=== PATIENT | female | born 1975 | race African-American/Black ===

== ENCOUNTER 2022-01-03 03:20 | Emergency (ER) | payer BC, SELFPAY ==
[2022-01-03 03:23] VITALS: BP 94/62; PULSE 61; RESP 14; TEMP 37.3; O2SAT 96; BMI 27.5
--- NOTE | 2022-01-03 04:15 | ED.GENADULT ---
HPI - General Adult General Time Seen by Provider: 03:45 Date Seen: 01/03/22 Stated complaint: Facial nerve pain Time Seen by Provider: 01/03/22 03:28 Source: patient Mode of arrival: EMS Limitations: no limitations History of Present Illness HPI narrative: Patient is a 46-year-old female who comes in by EMS with complaints of left-sided face pain. She has long history of trigeminal neuralgia and has had chronic narcotics, injections, other medications for this. She says that she has been having a flare-up for the past couple of days. She has not slept because of the pain. She falls asleep frequently as I am questioning her however. In reviewing the [facility] system she has not received any narcotics since July but she tells me that she is taking MS Contin 15 mg b.i.d. and gabapentin 600 mg t.i.d.. When she gets a flare-up she is typically given Percocet. She does not have any of these at home and according to [facility] she has not received any since July. She does not have a local doctor. I did the preop prior to her last injection in July. She says the only thing different about her pain tonight is that it goes into her tongue and neck. Related Data Home Medications Medication Instructions Recorded Confirmed albuterol sulfate 90 mcg/actuation INHALATION 01/03/22 aerosol inhaler buspirone 15 mg tablet mg 01/03/22 cholecalciferol (vitamin D3) 125 01/03/22 mcg (5,000 unit) tablet fluticasone propionate 44 INHALATION 01/03/22 mcg/actuation HFA aerosol inhaler (Flovent HFA) gabapentin 300 mg capsule mg 01/03/22 morphine 15 mg tablet,extended mg PO 01/03/22 release prednisone 20 mg tablet mg 01/03/22 sumatriptan succinate 25 mg tablet mg PO 01/03/22 Allergies Allergy/AdvReac Type Severity Reaction Status Date / Time No Known Drug Allergies Allergy Verified 01/03/22 03:33 Review of Systems Status of ROS: Reports: 10 or more systems reviewed and unremarkable except as noted in History and below PFSH PFSH Social History Smoking Status: Never smoker How often do you have a drink containing alcohol: monthly or less AUDIT-C Alcohol total score: 1 Non-prescribed substance use: denies use service: No Exam Narrative: Exam Narrative: Vitals noted. HEENT: Conjunctiva clear. Tympanic membranes are pearly white bilaterally. Posterior pharynx is clear without erythema or exudate. Neck is supple without adenopathy, thyromegaly, carotid bruit. Lungs: Clear to auscultation in all lezama. No wheezes, rales, rhonchi. Heart: Regular rate and rhythm without murmur. Extremities: No cyanosis or edema. Good distal pulses. Skin: No abnormalities noted of the exposed skin. Neurologic: She is intermittently somnolent. Neurologic exam is nonfocal. She has tenderness to light touch along the left side of her face and ear. There is no motor deficit. Cranial nerves are intact. Const: Vital Signs, click to edit/add: Vital Signs - 24 hr 01/03/22 03:23 Temperature 99.2 F Pulse Rate [Left P ulse Oximeter] 61 Respiratory Rate 14 Blood Pressure [Ri ght Upper Arm] 94/62 Pulse Oximetry 96 Course Course Hospital Course: Patient was seen and examined. She intermittently falls asleep while I am talking to her and examining her. 1A asked her how she was getting home she said she will have to take an Uber. I mentioned that that not be available for at least 4 hours. She has no explanation for why she claims to still be taking morphine but has not gotten a prescription that shows up in the [facility] system since July. She claims that the pain is so severe that she has not slept in days but is intermittently dozing off here. I did give her one Percocet. Reevaluation(s) Reevaluation #1: Patient slept throughout most of her stay here. I did send her home with a few Percocet. Vital Signs Vital signs: Initial Vital Signs Temperature 99.2 F 01/03/22 03:23 Temperature Source Temporal Artery Scan 01/03/22 03:23 Pulse Rate 61 01/03/22 03:23 Respiratory Rate 14 01/03/22 03:23 Blood Pressure 94/62 01/03/22 03:23 Blood Pressure Mean 72 01/03/22 03:23 Pulse Oximetry 96 01/03/22 03:23 Oxygen Delivery Method 01/03/22 03:23 Vital Signs Temperature 99.2 F 01/03/22 03:23 Pulse Rate 61 01/03/22 03:23 Respiratory Rate 14 01/03/22 03:23 Blood Pressure 94/62 01/03/22 03:23 Pulse Oximetry 96 01/03/22 03:23 Temperature 99.2 F 01/03/22 03:23 Pulse Rate 61 01/03/22 03:23 Respiratory Rate 14 01/03/22 03:23 Blood Pressure 94/62 01/03/22 03:23 Pulse Oximetry 96 01/03/22 03:23 Discharge Plan Discharge Clinical Impression: Left-sided trigeminal neuralgia Patient Disposition: Home, Self-Care Condition: Improved Additional Instructions: Establish care with a local doctor. Follow-up at the pain clinic to discuss management of your pain. Continue morphine 15 mg twice a day and gabapentin 600 mg 3 times a day. Percocet one tablet every 4 hours as needed for refractory pain. Refills will need to be managed by your PCP. Prescriptions: No Action sumatriptan succinate 25 mg tablet PO 0RF Label Comments: TAKE 1 TABLET BY MOUTH AFTER ONSET OF MIGRAINE MAY REPEAT AFTER 2 HOURS IF HEADACHE RETURNS NOT TO EXCEED 200 MG IN 24 HOURS prednisone 20 mg tablet 0RF fluticasone propionate [Flovent HFA] 44 mcg/actuation HFA aerosol inhaler INHALATION 0RF Label Comments: INHALE 2 PUFFS BY MOUTH TWICE DAILY gabapentin 300 mg capsule 0RF Label Comments: TAKE 1 CAPSULE BY MOUTH THREE TIMES DAILY MAY INCREASE BY 300 MG (1 CAP) A DAY EVERY 3 DAYS TO MAXIMUM DOSE OF 600 MG (2 CAPS) BY MOUTH THREE TIMES DAILY morphine 15 mg tablet extended release PO 0RF Label Comments: TAKE 1 TABLET BY MOUTH EVERY 12 HOURS FOR CHRONIC PAIN albuterol sulfate 90 mcg/actuation HFA aerosol inhaler INHALATION 0RF Label Comments: INHALE 2 PUFFS BY MOUTH EVERY 4 HOURS NEEDED buspirone 15 mg tablet 0RF Label Comments: TAKE 7.5MG (1 2 TABLET) TWO TIMES A DAY cholecalciferol (vitamin D3) 125 mcg (5,000 unit) tablet 0RF Label Comments: TAKE 1 TABLET BY MOUTH ONCE DAILY Follow Up/Referrals: Denton Wang MD [Primary Care Provider] - Stand Alone Forms: [facility] Info Instructions
[2022-01-03] MEDS: OxyCODONE/APAP 5-325 TABLET 2 TAB PO (04:23)
--- NOTE | 2022-01-03 04:30 | ED.NURSE ---
pt given one tab of oxy, pt was sleeping and appeared in no distress. PT BP 91/64, HR 61, SPO2 of 99%, RR 14, per records this it normal for pt vitals. Discussed with MD to give 1 tab instead of 2.
[2022-01-03 05:20] VITALS: BP 91/50; PULSE 60; RESP 14; TEMP 36.7; O2SAT 99
--- NOTE | 2022-01-03 05:20 | ED.NURSE ---
EMS IV dc'd, cath intact.
== END 2022-01-03 05:23 | disposition home or self-care (01) ==
LOC: ED 04:47
PROVIDERS: Emergency Provider Family Medicine; PCP Family Medicine
DX: G50.0 Trigeminal neuralgia (principal)
CPT/HCPCS: 99283; 99284; A9270

== ENCOUNTER 2022-01-23 17:10 | Emergency (ER) | payer BC, SELFPAY ==
[2022-01-23 18:02] VITALS: BP 126/78; PULSE 71; RESP 16; TEMP 37.3; O2SAT 100; BMI 27.5
[2022-01-23 19:49] LABS: Hematocrit 39.5 % (33.0-51.0); Hemoglobin* 12.6 gm/dL (12.0-16.0); Mean Corpuscular HGB Conc 32 gm/dL (32-36); Mean Corpuscular Hemoglobin 30 pg (26-34); Mean Corpuscular Volume 94 fL (80-100); Neutrophils Percent Auto 58.4 % (42.0-72.0); Platelet Count* 194 K/uL (140-440); RDW Coefficient of Variation % 13.5 % (11.5-15.5); Red Blood Count 4.19 m/uL (4.00-5.20); White Blood Count* 4.73 K/uL (4.50-11.00)
[2022-01-23 19:50] LABS: Basophils Absolute Auto 0.02 K/uL (0.00-0.30); Basophils Percent Auto 0.4 % (0.0-3.0); Eosinophils Absolute Auto 0.02 K/uL (0.00-0.50); Eosinophils Percent Auto 0.4 % (0.0-7.0); Lymphocytes Absolute Auto 1.66 K/uL (0.90-2.90); Lymphocytes Percent Auto 35.1 % (20-44); Monocytes Percent Auto 5.7 % (0.0-11.0); Neutrophils Absolute Auto 2.76 K/uL (1.7-7.0)
[2022-01-23 19:55] LABS: Albumin* 4.8 g/dL (3.3-5.0); Chloride* 105 mmol/L (96-114)
[2022-01-23 19:56] LABS: Potassium* 3.9 mmol/L (3.6-5.1); Sodium* 138 mmol/L (135-149)
[2022-01-23 19:58] LABS: Bilirubin Total* 0.4 mg/dL (0.1-1.5); Carbon Dioxide* 27 mmol/L (20-32); Creatinine* 0.7 mg/dL (0.5-1.5); Est. Creatinine Clearance* 91.32; Estimated Glomerular Filt Rate 109 ml/min
[2022-01-23 19:59] LABS: Alanine Aminotransferase* 13 U/L (4-35); Alkaline Phosphatase* 62 U/L (40-150); Aspartate Amino Transferase* 27 U/L (12-35); Blood Urea Nitrogen* 9 mg/dL (5-24); Calcium* 9.5 mg/dL (8.4-10.6); Glucose* 89 mg/dL (60-115); Total Protein* 8.2 g/dL (6.0-8.3)
[2022-01-23 20:00] LABS: Slide Review Reflex No
--- NOTE | 2022-01-23 20:17 | ED.GENADULT ---
HPI - General Adult General Chief complaint: Unspecified Complaint, Adult Stated complaint: NERVE CONDITION,FLAIR UP-FACE/ARM Time Seen by Provider: 01/23/22 18:51 History of Present Illness HPI narrative: Leilani is a 46-year-old female patient has known history of trigeminal neuralgia who has had recent exacerbation of chronic left facial pain. She reports the pain as severe, burning, and stabbing ache in the left side of her face. 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 Patient reports she is taking her medications without improvement. Patient denies any recent URI symptoms, and she reports no change in character or consistency of pain, which is similar to her previous exacerbations. She was last here approximately 1 month prior for similar concerns and complaints. She has had no injury or trauma. Which was previously evaluated, she reported that she was out of her chronic pain medication (Percocet) and her BMP revealed that she had not had prescribed opioids for approximately 5 months. She denies any vision changes. She denies fever, chills, or sweats. See nursing notes for complete details. Related Data Home Medications Medication Instructions Recorded Confirmed albuterol sulfate 90 mcg/actuation inhalation 01/03/22 aerosol inhaler buspirone 15 mg tablet mg 01/03/22 cholecalciferol (vitamin D3) 125 01/03/22 mcg (5,000 unit) tablet fluticasone propionate 44 inhalation 01/03/22 mcg/actuation HFA aerosol inhaler (Flovent HFA) gabapentin 300 mg capsule mg 01/03/22 morphine 15 mg tablet,extended mg PO 01/03/22 release prednisone 20 mg tablet mg 01/03/22 sumatriptan succinate 25 mg tablet mg PO 01/03/22 Previous Rx's Medication Instructions Recorded carbamazepine 200 mg 200 mg PO BID #30 caps 01/23/22 capsule,extended release [id number] Allergies Allergy/AdvReac Type Severity Reaction Status Date / Time No Known Drug Allergies Allergy Verified 01/03/22 03:33 Review of Systems Const: Reports: fatigue, malaise and change in sleep pattern; Denies: fever or chills Eyes: Denies: change in vision or eye discomfort ENMT: Denies: neck pain, difficulty swallowing or ear pain Cardio: Denies: chest pain or shortness of breath with exertion Resp: Denies: shortness of breath or cough GI: Denies: abdominal pain, nausea, vomiting, diarrhea, constipation or difficulty swallowing Musculo: Denies: neck pain Neuro: Denies: headache, weakness in extremities, lack of coordination, dizziness or difficulty communicating thoughts Endo: Reports: fatigue PFSH PFS Social History Smoking Status: Never smoker How often do you have a drink containing alcohol: monthly or less AUDIT-C Alcohol total score: 1 Non-prescribed substance use: denies use service: No Exam Const: Vital Signs, click to edit/add: Vital Signs - 24 hr 01/23/22 18:02 Temperature 99.1 F Pulse Rate [Pulse Oximeter] 71 Respiratory Rate 16 Blood Pressure [Ri ght Upper Arm] 126/78 Pulse Oximetry 100 Oxygen Delivery Me thod Room Air Documenting provider has reviewed patient's vital signs: yes Common normals: no apparent distress, oriented x3 and no limitations; negative for healthy appearing General appearance: cooperative, comfortable, well developed, in distress and appears older than stated age Nutritional appearance: thin Orientation/consciousness: Yes awake, Yes oriented to person, Yes oriented to place and Yes oriented to time HENMT: Common normals: normocephalic, head/scalp atraumatic, hearing grossly normal bilaterally and external nose normal Head and scalp: normocephalic and atraumatic; no temporal artery tenderness Face and sinus: TMJ findings tender to palpation: left and other: bilateral (no audible/palpable clicking, popping, or swelling) Nose: external nose normal Mouth: TMJ findings TMJ Findings: tender to palpation: left and other: bilateral (no audible/palpable clicking, popping, or swelling) Eye: Common normals: PERRL Pupil: PERRL Neck & C-Spine: Common normals: full ROM, no lymphadenopathy and supple Resp: Common normals: normal respiratory effort, no retractions, no use of accessory muscles and clear to auscultation bilaterally Effort & inspection: able to speak in complete sentences Auscultation: clear to auscultation bilaterally Cardio: Common normals: regular rate, regular rhythm, S1 normal heart sound, S2 normal heart sound, no gallops, no clicks and no murmurs Rate: regular rate Rhythm: regular rhythm Heart sounds: S1 normal and S2 normal GI: Common normals: Normal to inspection, nondistended, normoactive bowel sounds present and soft to palpation Palpation: soft Extremity: Common normals: normal to inspection General: normal exam except as noted Neuro: Common normals: oriented x3 Sensorium/orientation: awake, oriented to person, oriented to place and oriented to time Motor exam: strength 5/5 throughout and no pronator drift Skin: Common normals: no rashes or lesions noted General skin exam: no rashes or lesions noted Course Course Hospital Course: Leilani has known history of trigeminal neuralgia as well as TMJ and a benign sarcoma that causes her significant discomfort and pain of her left face and jaw. She had evaluation as well as recommended treatment started for her chronic discomfort. Her results were discussed with her and treatment offered. She is encouraged to take medication as directed and follow with her primary for management of her chronic pain concerns. Her questions were answered, and she verbalized understanding. Reevaluation(s) Time: 20:26 Vital Signs Vital signs: Initial Vital Signs Temperature 99.1 F 01/23/22 18:02 Temperature Source Temporal Artery Scan 01/23/22 18:02 Pulse Rate 71 01/23/22 18:02 Pulse Rhythm 01/23/22 18:02 Respiratory Rate 16 01/23/22 18:02 Blood Pressure 126/78 01/23/22 18:02 Blood Pressure Mean 94 01/23/22 18:02 Blood Pressure Position Sitting 01/23/22 18:02 Pulse Oximetry 100 01/23/22 18:02 Oxygen Delivery Method 01/23/22 18:02 Vital Signs Temperature 99.1 F 01/23/22 18:02 Pulse Rate 71 01/23/22 18:02 Respiratory Rate 16 01/23/22 18:02 Blood Pressure 126/78 01/23/22 18:02 Pulse Oximetry 100 01/23/22 18:02 Oxygen Delivery Method 01/23/22 18:02 Temperature 99.1 F 01/23/22 18:02 Pulse Rate 71 01/23/22 18:02 Respiratory Rate 16 01/23/22 18:02 Blood Pressure 126/78 01/23/22 18:02 Pulse Oximetry 100 01/23/22 18:02 Oxygen Delivery Method 01/23/22 18:02 Medical Decision Making MDM Narrative Medical decision making narrative: Life-threatening differential diagnoses include mastoiditis and retropharyngeal abscess in addition dental caries, peritonsillar abscess, peritonitis, tooth avulsion, tooth fracture, and gingivitis as well as other etiologies were discussed. Adjustment of treatment plan and need for additional follow-up were discussed with patient. Her questions were answered and she verbalized understanding. Lab Data Lab results reviewed: Yes I reviewed the patient's lab results Labs: Lab Results 01/23/22 01/23/22 01/23/22 Range/Units 19:35 19:35 19:35 WBC 4.73 (4.50-11.00) K/uL RBC 4.19 (4.00-5.20) m/uL Hgb 12.6 (12.0-16.0) gm/dL Hct 39.5 (33.0-51.0) % MCV 94 (80-100) fL MCH 30 (26-34) pg MCHC 32 (32-36) gm/dL RDW Coeff of Tristian 13.5 (11.5-15.5) % Plt Count 194 (140-440) K/uL Neut % (Auto) 58.4 (42.0-72.0) % Lymph % (Auto) 35.1 (20-44) % Chester % (Auto) 5.7 (0.0-11.0) % Eos % (Auto) 0.4 (0.0-7.0) % Baso % (Auto) 0.4 (0.0-3.0) % Neut # (Auto) 2.76 (1.7-7.0) K/uL Lymph # (Auto) 1.66 (0.90-2.90) K/uL Chester # (Auto) 0.30 (0.00-0.90) K/UL Eos # (Auto) 0.02 (0.00-0.50) K/uL Baso # (Auto) 0.02 (0.00-0.30) K/uL Abs Immat Gran (auto) 0.00 (0.00-0.30) K/uL ESR 5 (2-20) mm/hr Sodium 138 (135-149) mmol/L Potassium 3.9 (3.6-5.1) mmol/L Chloride 105 (96-114) mmol/L Carbon Dioxide 27 (20-32) mmol/L BUN 9 (5-24) mg/dL Creatinine 0.7 (0.5-1.5) mg/dL Estimated Creat Clear 91.32 Estimated GFR 109 ml/min Glucose 89 (60-115) mg/dL Calcium 9.5 (8.4-10.6) mg/dL Total Bilirubin 0.4 (0.1-1.5) mg/dL AST 27 (12-35) U/L ALT 13 (4-35) U/L Alkaline Phosphatase 62 (40-150) U/L Total Protein 8.2 (6.0-8.3) g/dL Albumin 4.8 (3.3-5.0) g/dL Discharge Plan Discharge Clinical Impression: Left-sided trigeminal neuralgia Patient Disposition: Home, Self-Care Condition: Stable Instructions: Trigeminal Neuralgia (ED) Activity Level: No Restrictions and Activity as Tolerated Prescriptions: New carbamazepine 200 mg capsule, ER multiphase 12 hr 200 mg PO BID Qty: 30 2RF No Action sumatriptan succinate 25 mg tablet PO Label Comments: TAKE 1 TABLET BY MOUTH AFTER ONSET OF MIGRAINE MAY REPEAT AFTER 2 HOURS IF HEADACHE RETURNS NOT TO EXCEED 200 MG IN 24 HOURS prednisone 20 mg tablet fluticasone propionate [Flovent HFA] 44 mcg/actuation HFA aerosol inhaler INHALATION Label Comments: INHALE 2 PUFFS BY MOUTH TWICE DAILY gabapentin 300 mg capsule Label Comments: TAKE 1 CAPSULE BY MOUTH THREE TIMES DAILY MAY INCREASE BY 300 MG (1 CAP) A DAY EVERY 3 DAYS TO MAXIMUM DOSE OF 600 MG (2 CAPS) BY MOUTH THREE TIMES DAILY morphine 15 mg tablet extended release PO Label Comments: TAKE 1 TABLET BY MOUTH EVERY 12 HOURS FOR CHRONIC PAIN albuterol sulfate 90 mcg/actuation HFA aerosol inhaler INHALATION Label Comments: INHALE 2 PUFFS BY MOUTH EVERY 4 HOURS NEEDED buspirone 15 mg tablet Label Comments: TAKE 7.5MG (1 2 TABLET) TWO TIMES A DAY cholecalciferol (vitamin D3) 125 mcg (5,000 unit) tablet Label Comments: TAKE 1 TABLET BY MOUTH ONCE DAILY Follow Up/Referrals: Denton Wang MD [Primary Care Provider] - Stand Alone Forms: [facility] Info Instructions
[2022-01-23 20:30] LABS: Erythrocyte SedimentationRate* 5 mm/hr (2-20)
[2022-01-23] MEDS: KETOROLAC 30 MG/ML inj IM (20:30)
[2022-01-23 21:26] VITALS: BP 110/80; PULSE 78; O2SAT 96
== END 2022-01-23 21:30 | disposition home or self-care (01) ==
PROVIDERS: Emergency Provider Family Medicine; PCP Family Medicine
DX: G50.0 Trigeminal neuralgia (principal)
CPT/HCPCS: 36415; 80053; 85025; 85651; 96372; 99283; 99284; A9270; J1885

== ENCOUNTER 2022-12-31 09:57 | Outpatient (CLI) | payer BC, SELFPAY | END 2022-12-31 09:58 | disposition home or self-care (01) | PROVIDERS: PCP Family Medicine; Visit Provider Family Medicine | DX: Z00.00 Encounter for general adult medical examination without abnormal findings (principal); R79.89 Other specified abnormal findings of blood chemistry; Z11.59 Encounter for screening for other viral diseases; Z13.6 Encounter for screening for cardiovascular disorders; Z79.899 Other long term (current) drug therapy; Z11.4 Encounter for screening for human immunodeficiency virus [HIV]; Z86.2 Personal history of diseases of the blood and blood-forming organs and certain disorders involving the immune mechanism | CPT/HCPCS: 80053; 80061; 82306; 82607; 86039; 86703; 86803 ==

== ENCOUNTER 2023-06-06 09:37 | Outpatient (CLI) | payer BC, SELFPAY | END 2023-06-06 09:38 | disposition home or self-care (01) | LOC: NFLDREF 06-07 13:39 | PROVIDERS: PCP Family Medicine; Referring Provider Family Medicine; Visit Provider Family Medicine | DX: Z01.818 Encounter for other preprocedural examination (principal); R39.15 Urgency of urination; G50.0 Trigeminal neuralgia; I95.9 Hypotension, unspecified; F43.21 Adjustment disorder with depressed mood | CPT/HCPCS: 87086 ==

== ENCOUNTER 2024-06-09 07:13 | Outpatient (CLI) | payer OTHER, SELFPAY | END 2024-06-09 07:14 | disposition home or self-care (01) | PROVIDERS: PCP Family Medicine; Visit Provider Family Medicine | DX: R79.89 Other specified abnormal findings of blood chemistry (principal); M25.50 Pain in unspecified joint; G50.0 Trigeminal neuralgia; J45.909 Unspecified asthma, uncomplicated; Z13.1 Encounter for screening for diabetes mellitus; Z13.6 Encounter for screening for cardiovascular disorders | CPT/HCPCS: 80053; 80061; 82306; 82607; 86038; 86140 ==

== ENCOUNTER 2024-06-26 06:37 | Emergency (ER) | payer OTHER, SELFPAY ==
--- OUTSIDE RECORDS SUMMARY | 2024-06-26 06:39 | XMS_ITS | Clinical Summary ---
Author Organization [facility] Address [address] [place] [address] Care Team Providers Care Strategic Marketing Associate Name Role Phone No Ref-Primary, Physician Primary Care Provider Meghna Potter MD Unavailable Omar Spicer MD Unavailable [phone] Roger Moseley DDS Unavailable [phone] Allergies Active Allergy Reactions Criticality Noted Date Comments Ibuprofen Other (See Comments),GI Disturbance Low 05/11/2013 Not true allergy - was told to avoid NSAIDs due to gastric bypass Told not to take after gastric bypass Had gastric bypass surgery and cannot take Ibuprofen No Known Drug Allergy 09/02/2009 No Clinical Screening - See Comments Other (See Comments) 10/04/2020 Seasonal allergies Seasonal Allergies High 03/24/2019 Other reaction(s): sneezing, congestion Other reaction(s): sneezing, congestion Medications gabapentin (NEURONTIN) 300 MG capsule Take 1 capsule (300 mg) by mouth 3 times daily 42 capsule 9 Active methylPREDNISol one (MEDROL DOSEPAK) 4 MG tablet therapy pack Follow package instructions 21 tablet 9 Active pregabalin (LYRICA) 50 MG capsule Take 1 capsule (50 mg) by mouth 3 times daily 15 capsule 9 Active carBAMazepine (CARBATROL) 300 MG 12 hr capsule Take 1 capsule by mouth 2 times daily 1 Active cholecalciferol 50 MCG (2000 UT) tablet Take 1 tablet by mouth daily 0 Active cyanocobalamin (VITAMIN B-12) 1000 MCG tablet Take 1,000 mcg by mouth daily 1 Active cyclobenzaprine (FLEXERIL) 5 MG tablet Take 5 mg by mouth 3 times daily 8 Active diclofenac (VOLTAREN) 50 MG EC tablet Take 1 tablet by mouth 2 times daily 1 Active DULoxetine (CYMBALTA) 30 MG capsule Take 1 capsule by mouth daily 1 Active Folic Acid-Cholecalci ferol 1-2500 MG-UNIT TABS Take 1 tablet by mouth daily 1 Active hydrochlorothia zide (MICROZIDE) 12.5 MG capsule Take 12.5 mg by mouth daily 1 Active hydrOXYzine (ATARAX) 25 MG tablet Take 25 mg by mouth 3 times daily 1 Active hydrOXYzine (VISTARIL) 25 MG capsule Take 1-2 capsules by mouth every 6 hours as needed 1 Active oxyCODONE-aceta minophen (PERCOCET) 5-325 MG tablet Take 1 tablet by mouth every 6 hours as needed 1 Active traMADol (ULTRAM-ER) 100 MG 24 hr tablet Take 100 mg by mouth daily 1 Active traMADol (ULTRAM) 50 MG tablet Take 1 tablet by mouth every 6 hours as needed 1 Active traZODone (DESYREL) 50 MG tablet Take 50 mg by mouth daily 1 Active Active Problems Problem Noted Date Diagnosed Date Neuritis 09/02/2018 Anemia 08/27/2018 Seasonal allergic rhinitis 08/27/2018 CARDIOVASCULAR SCREENING; LDL GOAL LESS THAN 160 04/23/2010 Panniculitis 02/16/2010 Overview (03/25/2015): Problem list name updated by automated process. 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 Myofascial muscle pain 05/22/201808/07 Immunizations Name Administration Dates Next Due Influenza (IIV3) PF 03/21/2010 Family History Medical History Relation Comments Cancer Father leukuemia Diabetes Father Hypertension Father Diabetes Maternal Grandfather Hypertension Maternal Grandfather Diabetes Maternal Grandmother Hypertension Maternal Grandmother Relation Status Comments Father Alive Maternal Grandfather Maternal Grandmother Mother Alive Paternal Grandfather Paternal Grandmother Social History Tobacco Use Types Packs/Day Years Used Date Smoking Tobacco: Never Smokeless Tobacco: Never Tobacco Cessation:Counseling Given: No Comments:no second hand smoke Alcohol Use Standard Drinks/Week Comments Yes 0 (1 standard drink = 0.6 oz pur e alcohol) socialy PHQ-2 Answer Date Recorded PHQ-2 Score 0 08/27/2018 Adolescent Education Answer Date Record ed Getting School Help Needed Not on file 04/10 Comments No Sex and Gender Information Value Date Recorded Sex Assigned at Not on file 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 Gender Identity Not on file Sexual Orientation Not on file 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 on file Last Filed Vital Signs Vital Sign Reading Time Taken Comments Blood Pressure 127/85 10/10/2020 2:10 AM CDT Pulse 70 10/10/2020 2:10 AM CDT Temperature 36.9 C (98.4 F) 10/10/2020 2:10 AM CDT Respiratory Rate 20 10/10/2020 2:10 AM CDT Oxygen Saturation 99% 10/10/2020 2:10 AM CDT Inhaled Oxygen Concentration - - Weight 83.9 kg (185 lb) 11/08/2018 10:28 PM CDT Height 165.1 cm (5' 5) 11/08/2018 10:28 PM CDT Body Mass Index 30.79 11/08/2018 10:28 PM CDT Plan of Treatment Not on file [place] * Guarantor: Leilani Lundy Account Type Relation to Patient Date of Phone Billing Address Medication Therapy Self [address] [phone] [place] Care Teams Strategic Marketing Associate Relationship Specialty Start Date End Date No Ref-Primary, Physician PCP - General 05/05/18 [place] [address] [place] [address] Family Practice 05/05/18 Omar Spicer MD [address] [facility] [id number] [place] [address] Neurological Surgery 11/18/20 Roger Moseley DDS [facility] [address] [facility] [address] [place] [address] Referring Physician Dentist 11/18/20
--- OUTSIDE RECORDS SUMMARY | 2024-06-26 06:39 | XMS_ITS | Encounter Summary ---
Author Organization [facility] Address [address] [place] [address] Care Team Providers Care Model Maker Name Role Phone Meghna Potter MD Primary Care P rovider No Ref-Primary, Physician Primary Care Provider Meghna Potter MD Unavailable Omar Spicer MD Unavailable Roger Moseley DDS Unavailable [phone] Omar Spicer MD Unavailable [phone] Reason for Visit * Reason Onset Date Comments Results 04/12/2010 labs Encounter Details Date Type Department Care Team (Late st Contact Info) Description 04/12/2010 Telephone [facility] [address] [address] Julia Arshad MD XXX RESIGNED XXX [address] [place] [address] Results (labs ) Social History Tobacco Use Types Packs/Day Years Used Date Smoking Tobacco: Never Comments:no second hand smok e Alcohol Use Standard Drinks/Week Comments Yes 0 (1 standard drink = 0.6 oz pur e alcohol) socialy Comments No Sex and Gender Information Value Date Recorded Sex Assigned at Not on file Legal Sex 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 Also sent results in mail pe rpt request Flaco Cates RN * Telephone Encounter - Aidan Simon - 04/12/2010 3:18 PM CDT Pt has new ph# as above. Pt wondering about status of her labs done 04/10. Pls call pt. Thank you documented in this encounter Plan of Treatment Not on file documented as of this encounter Visit Diagnoses Not on filedocumented in this encounter Care Teams Model Maker Relationship Specialty [place] [address] [place] [id number] PCP - General Family Practice 08/26/09 05/04/18 No Ref-Primary, Physician PCP - General 05/05/18 [place] [address] [address] [id number] Family Practice 05/05/18 Omar Spicer MD [address] [facility] [id number] [place] [address] Neurological Surgery 11/18/20 Roger Moseley DDS [facility] [address] [facility] [address] [place] [address] Referring Physician Dentist 11/18/20 Omar Spicer MD [address] [facility] [id number] [place] [address] Assigned Neuroscience Provider 12/18/20 11/23/22 documented as of this encounter
--- OUTSIDE RECORDS SUMMARY | 2024-06-26 06:39 | XMS_ITS | Clinical Summary ---
Author Organization [facility] Address [place], [place] [address] Care Team Providers Care Packing And Final Assembly Supervisor Name Role Phone Denton Wang MD Primary Care Provider [phone] Allergies Active Allergy Reactions Criticality Noted Date Comments Ibuprofen GI Upset 06/06/2016 Had gastric bypass surgery and cannot take Ibuprofen Unlisted Allergen (Include Detail In Comments) Runny Nose High 03/24/2019 Seasonal allergies Other reaction(s): sneezing, congestion Other reaction(s): sneezing, congestion Medications cyanocobalamin (VITAMIN B12) 1,000 mcg/mL injection Inject 1,000 mcg intramuscular. 5 Active cholecalciferol, Vitamin D3, 2,000 unit tablet Daily 0 Active triamcinolone (ARISTOCORT; KENALOG) 0.1 % creamIndications:C ontact dermatitis, unspecified contact dermatitis type, unspecified trigger Apply topically to affected area(s) three times daily. 80 g 3 Active carBAMazepine (TEGRETOL) 200 mg tabletIndications: Trigeminal neuralgia Take 1 Tablet (200 mg) by mouth two times daily. 20 Tablet 3 Active nortriptyline (PAMELOR) 10 mg capsule TAKE 1 CAPSULE BY MOUTH EVERY DAY AT BEDTIME 3 Active methylPREDNISolone (Medrol, Jason,) 4 mg tabletIndications: Trigeminal neuralgia pain Take by mouth as instructed per packaging. 21 Tablet 4 Active lidocaine HCL 4 % gelIndications:Tri geminal neuralgia pain Apply topically to affected area(s). 75 mL 4 Active oxyCODONE (ROXICODONE) 5 mg immediate release tabletIndications: Trigeminal neuralgia pain Take 1 Tablet (5 mg) by mouth every 6 hours if needed for Pain. 10 Tablet 4 Active ondansetron (ZOFRAN ODT) 4 mg disintegrating tabletIndications: Trigeminal neuralgia pain Place 1 Tablet (4 mg) on the tongue every 8 hours if needed for Nausea/Vomitin g. 30 Tablet 4 Active Active Problems Problem Noted Date Diagnosed Date Arthralgia of multiple joints 10/10/2022 Back pain 10/10/2022 10/10/2022 Low vitamin D level 10/10/2022 10/10/2022 PTSD (post-traumatic stress disorder) 10/10/2022 10/10/2022 Trigeminal neuritis 10/10/2022 10/10/2022 Neuritis 09/02/2018 10/10/2022 Seasonal allergic rhinitis 08/27/201810/10 Chavo anemia 04/15/2014 10/10/2022 Other specified postprocedural states 04/15/2014 10/10/2022 Fatty tumor 02/23/2014 10/10/2022 Panniculitis 02/16/2010 10/10/2022 Overview (10/10/2022): Problem list name updated by automated process. Provider to review Depressive disorder, not elsewhere classified Anemia, unspecified 06/29/2006 Overview (06/29/2006): Related to DUB Other disorder of menstruati on and other abnormal bleeding from female genital tract 06/29/2006 Overview (06/29/2006): s/p D&C x two. Followed by Dr. Heath. Hypopotassemia 06/29/2006 Morbid obesity 08/02/2005 Overview (06/29/2006): s/p Gastric Bypass 08/27 Immunizations Name Administration Dates Next Due COVID-19 vaccine (Moderna 10 0mcg/0.5mL) PF, MDV 09/13/2020 Hepatitis B, Unspecified 01/06/1998 Influenza Virus, Unspecified 03/21/2010 Influenza, IIV3 (Age 6-35 mos) 03/21/2010 Influenza, IIV3 (Age >=3 years) 05/25/2014 Influenza, IIV4 05/25/2014 Tdap 07/15/2022,02/19/2014,12/27/2012 Family History Medical History Relation Name Comments Good Health Brother Cancer Father living at age 4 7, has Leukemia, in remission Good Health Mother living at age 4 9 Relation Name Status Comments Brother Father Mother Social History Tobacco Use Types Packs/Day Years Used Date Smoking Tobacco: Never Smokeless Tobacco: Never Tobacco Cessation:Counseling Given: Not Answered Alcohol Use Standard Drinks/Week Comments Not Currently 1 (1 standard drink = 0.6 oz pur e alcohol) socially Comments No Sex and Gender Information Value Date Recorded Sex Assigned at Not on file 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 Gender Identity Not on file Sexual Orientation Not on file 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 Not on file Not on file Obstetrics History Last Filed Vital Signs Vital Sign Reading Time Taken Comments Blood Pressure 105/70 09/17/2023 9:14 AM CDT Pulse 67 09/17/2023 9:14 AM CDT Temperature 36.7 C (98.1 F) 09/17/2023 9:14 AM CDT Respiratory Rate 14 09/17/2023 9:14 AM CDT Oxygen Saturation 98% 09/17/2023 9:14 AM CDT Inhaled Oxygen Concentration - - Weight 74.8 kg (165 lb) 09/17/2023 9:14 AM CDT Height 165.1 cm (5' 5) 09/17/2023 9:14 AM CDT Body Mass Index 27.46 09/17/2023 9:14 AM CDT Plan of Treatment Health Maintenance Due Date Last Done Comments Depression screening for age 12+ 1988 HIV for age 15-65 10/09/1991 Hepatitis C screening for age 18-79 1994 Pap test for age 21-65 1997 Colonoscopy through age 75 2021 Lipids for age 45-75 2021 10/26/2005 Mammogram for age 45-75 2021 COVID-19 vaccine series (2023- season) 2024 08/03/2021, 10/11/2020, 09/13/2020 Influenza for age 9-49 02/23/2024 4, 05/25/2014, 03/21/2010 BMI (ht and wt on same day) for age 18+ 09/16/2024 09/17/2023, 07/15/2022, 10/04/2020, Additional history exists Tetanus booster 07/15/2032 07/15/2022, 01/23, 12/27/2012 Tdap Completed 07/15/2022, 01/23, 12/27/2012 Pneumococcal series for age 6-49 Aged Out No longer eligible based on patient's age to complete this topic Procedures Procedure Name Priority Date/Time Associated Diagnosis Comments LIPID PANEL Timed 10/26/2005 11:36 AM CDT from Last 3 Months or Most Recently Relevant to Health Maintenance Results * LIPID PANEL (10/26/2005 11:36 AM CDT) CHOLESTEROL,TOTAL 157 110 - 199 mg/dL [facility] TRIGLYCERIDES 129 40 - 149 mg/dL [facility] HDL CHOLESTEROL 42 >40 mg/dL [facility] CHOL/HDL RATIO 3.74 <4.51 [facility] LDL CHOLESTEROL 89 <131 mg/dL [facility] PATIENT STATUS Non-Fasti ng [facility] 10/26/2005 11:3 6 AM CDT 10/26/2005 11:36 AM CDT us Andrea Alvarenga MD CHEMISTRY Final Res ult [facility] INTERNAL ZIP [id number] [address] [address] from Last 3 Months or Most Recently Relevant to Health Maintenance [place] [address] [place] [address] [facility] [employer] Advance Directives * Full Code (Latest Code Status on File) Date Activated Date Inactivated Comments 07/03/2006 10:54 AM 07/07/2006 5:54 PM * Full Code Date Activated Date Inactivated Comments 07/02/2006 11:24 PM 07/03/2006 10:54 AM * Full Code Date Activated Date Inactivated Comments 06/29/2006 2:38 AM 06/29/2006 9:55 PM Care Teams Packing And Final Assembly Supervisor Relationship Specialty Start Date End Date Denton Wang MD [address] [place] [address] PCP - General Family Practice 09/20/20
--- OUTSIDE RECORDS SUMMARY | 2024-06-26 06:39 | XMS_ITS | Continuity of Care Document ---
Author Name [email or web address] Address Unknown Organization Unknown Address Unknown Procedures FILTER APPLIED:Only known Procedures with Onset Date within the last 5 years Procedure Date Procedure Provider Additional Inform ation Status URINE CULTURE/COLONY COUNT (50317) Completed Encounters FILTER APPLIED:Only known Encounters with Admission Date within the last 5 years Encounter Location Admission Discharge Billing Code Vegetable Thinner Jeff [facility]paul[facility] Out[facility] Gabriela Fagan
--- OUTSIDE RECORDS SUMMARY | 2024-06-26 06:39 | XMS_ITS | Referral Summary ---
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 Gender Identity Not on file Sexual Orientation [...] Treatment Not on file [place] * Guarantor: Leilani Lundy Account Type Relation to Patient Date of Phone Billing Address Medication Therapy Self [address] [address] [place] Care Teams Recruiting Manager Relationship Specialty Start Date End Date No Ref-Primary, Physician PCP - General 05/05/18 [place] [address] [address] [address] Family Practice 05/05/18 Omar Spicer MD [address] [facility] [id number] [place] [address] Neurological Surgery 11/18/20 Roger Moseley DDS [facility] [address] [facility] [address] [place] [address] Referring Physician Dentist 11/18/20
--- OUTSIDE RECORDS SUMMARY | 2024-06-26 06:39 | XMS_ITS | Encounter Summary ---
Author Organization [facility] Address [address] [facility] [place] [address] Care Team Providers Care Packaging Assembler Name Role Phone Meghna Potter MD Primary Care P rovider No Ref-Primary, Physician Primary Care Provider Meghna Potter MD Unavailable Omar Spicer MD Unavailable [phone] Roger Moseley DDS Unavailable [phone] Omar Spicer MD Unavailable [phone] Encounter Details Date Type Department Care Team (Late st Contact Info) Description 08/31/2010 MyC Medical Advice Initial Department [facility] Social History Tobacco Use Types Packs/Day Years Used Date Smoking Tobacco: Never Comments:no second hand smok e Alcohol Use Standard Drinks/Week Comments Yes 0 (1 standard drink = 0.6 oz pur e alcohol) socialy Comments No Sex and Gender Information Value Date Recorded Sex Assigned at Not on file 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 Gender Identity Not on file Sexual Orientation Not on file 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 on file documented as of this encounter Plan of Treatment Not on file documented as of this encounter Visit Diagnoses Not on filedocumented in this encounter Care Teams Packaging Assembler Relationship Specialty [place] [address] [address] [phone] PCP - General Family Practice 08/26/09 05/04/18 No Ref-Primary, Physician PCP - General 05/05/18 [place] [address] [address] [phone] Family Practice 05/05/18 Omar Spicer MD [address] [address] Neurological Surgery 11/18/[address] [facility] [address] [facility] [address] [place] [address] Referring Physician Dentist 11/18/20 Omar Spicer MD [address] [address] Assigned Neuroscience Provider 12/18/20 11/23/22 documented as of this encounter
--- OUTSIDE RECORDS SUMMARY | 2024-06-26 06:39 | XMS_ITS | Encounter Summary ---
Author Organization [facility] Address [address] [place] [address] Care Team Providers Care Road Tester Name Role Phone Meghna Potter MD Primary Care P rovider No Ref-Primary, Physician Primary Care Provider Meghna Potter MD Unavailable Omar Spicer MD Unavailable [phone] Roger Moseley DDS Unavailable [phone] Omar Spicer MD Unavailable Reason for Visit * Reason Onset Date Comments Medication Request 03/19/2011 Encounter Details Date Type Department Care Team (Late st Contact Info) Description 03/19/[address] [address] Aminata Singh PA-C [facility] [address] [address] Medication Request Social History Tobacco Use Types Packs/Day Years Used Date Smoking Tobacco: Never Smokeless Tobacco: Never Comments:no second hand smok e Alcohol Use Standard Drinks/Week Comments Yes 0 (1 standard drink = 0.6 oz pur e alcohol) socialy Comments No Sex and Gender Information Value Date Recorded Sex Assigned at Not on file 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 Aldara was not the medication she was requesting in an oral from, it was flagyl or metronidazole based on the visit on 02/22/11. Rx was ordered and sent while speaking on phone with her. Apologized for the confusion, and will forward this to Angeles Anderson. Aminata Singh PA-C * Telephone Encounter - Estefany Wilkerson - 03/19/2011 1:59 PM CDT Pt very irritated that message sent about Aldara cream. Pt states she was calling about a cream that was given to her when she came in for her physical at the beginning of February. Pt states Caty told me there is a cream or a pill. Pt states she has not been able to insert the vaginal cream because she gets home very late at night from work. Pt requesting Rx for pill version of whatever she gave me at my physical be sent to pharmacy. Pt unable to verify name of medication she is talking about (per EPIC pt give Rx for Metrol on 02/22/11 to treat BV). Pt unwilling to answer questions is she is currently having symptoms of BV and will not confirm if she has used any of the Metrogel. Will forward to provider to advise. Estefany Wilkerson RN * Telephone Encounter - Estefany Wilkerson - 03/19/2011 1:47 PM CDT ----- Message from Aminata Singh sent at 03/19/2011 1:32 PM ----- There is not an oral medication to treat the conditions that Aldara is used for. Thank you Aminata Singh PA-C * Telephone Encounter - Estefany Wilkerson - 03/19/2011 9:36 AM CDT Pt seen in on 03/15/11 for lesion on pubis area. Will forward to provider to advise. Estefany Wilkerson RN * Telephone Encounter - Christin Bunch - 03/19/2011 8:04 AM CDT Please call Leilani at [phone] anytime or leave message re; received an Rx for Aldara 5% cream(02-22 and again 03-16/)and she is requesting a pill form instead due to her work schedule(difficult to apply-pills would be much easier). [facility] - didn' have # Thank you documented in this encounter Plan of Treatment Not on file documented as of this encounter Visit Diagnoses Diagnosis BV (bacterial vaginosis)- Primary Vaginitis and vulvovaginitis, unspecified documented in this encounter Care Teams Road Tester Relationship Specialty [place] [address] [address] [phone] PCP - General Family Practice 08/26/09 05/04/18 No Ref-Primary, Physician PCP - General 05/05/18 [place] [address] [address] [address] Family Practice 05/05/18 Omar Spicer MD [address] [place], [place] [id number] [address] Neurological Surgery 11/18/20 Roger Moseley DDS [facility] [address] [facility] [address] [place] [address] Referring Physician Dentist 11/18/20 Omar Spicer MD [address] [facility] [id number] [place] [address] Assigned Neuroscience Provider 12/18/20 11/23/22 documented as of this encounter
[2024-06-26 06:47] VITALS: BP 117/73; PULSE 100; RESP 20; TEMP 37.7; O2SAT 99; BMI 27.3
--- NOTE | 2024-06-26 07:12 | ED_ITS ---
HPI - General Adult General Date Seen: 06/26/24 <Guanako Bryan - Last Filed: 06/26/24 08:02> Chief complaint: Fever <Guanako Bryan DO - Last Filed: 06/26/24 08:02> Stated complaint: Fever, chest pain, head/body aches <Guanako Bryan - Last Filed: 06/26/24 08:02> Time Seen by Provider: 06/26/24 07:01 <Guanako Bryan DO - Last Filed: 06/26/24 08:02> Source: patient <Guanako Bryan - Last Filed: 06/26/24 08:02> Mode of arrival: ambulatory <Guanako Bryan - Last Filed: 06/26/24 08:02> Limitations: no limitations <Guanako Bryan - Last Filed: 06/26/24 08:02> History of Present Illness HPI narrative: Patient is a 48-year-old female presenting to the emergency department for multiple symptoms. States since yesterday she has been having consistent fevers, chills, cough congestion, body aches, fatigue and a headache. She states she has had headaches like this before. She states it feels like her previous migraines. She is also having leg pain that has flared up. She says it is from a previous nerve disorder but has not taken her nerve pain medications as she was concerned that could have an adverse reaction with whatever is causing her symptoms. States she took a Tylenol last night with minimal improvement. Has had multiple sick coworkers. States she of intermittent chest pressure and left shoulder pain this seems to come and go. States it occurs randomly. Has not had issues like this before. When it does occur she will have some mild shortness of breath. Denies constipation, diarrhea, abdominal pain, nausea/vomiting. No other concerns noted. <Guanako Bryan DO - Last Filed: 06/26/24 08:02> Related Data Home medications: Home Medications ?Medication ?Instructions ?Recorded ?Confirmed acetaminophen 300 mg-codeine 30 mg 1 tab PO Q6H PRN 06/06/23 06/09/24 tablet Previous Rx's ?Medication ?Instructions ?Recorded duloxetine 30 mg capsule,delayed 30 mg PO BID #180 caps 06/09/24 release nortriptyline 50 mg capsule 50 mg PO QHS #90 caps 06/09/24 topiramate 25 mg tablet (Topamax) 25 mg PO QHS #30 tabs 06/09/24 cholecalciferol (vitamin D3) 1,250 1,250 mcg PO QWEEK #12 caps 06/10/24 mcg (50,000 unit) capsule nirmatrelvir 300 mg (150 mg See Rx Instructions PO .COMPLEX 06/26/24 x2)-ritonavir 100 mg tablet,dose #30 ea pack (Paxlovid) <Guanako Bryan DO - Last Filed: 06/26/24 08:02> Allergies/adverse reactions: Allergies Allergy/AdvReac Type Severity Reaction Status Date / Time ibuprofen Allergy Mild unable to Verified 06/09/24 07:23 tolerate due to gastric bypass hx seasonal Allergy Mild sneezing, Uncoded 06/09/24 07:23 congestion <Guanako Bryan DO - Last Filed: 06/26/24 08:02> Review of Systems Status of ROS: Reports: 10 or more systems reviewed and unremarkable except as noted in History and below <Guanako Bryan DO - Last Filed: 06/26/24 08:02> [facility] Medical History: Medical History Grief ?F43.21 - Adjustment disorder with depressed mood (ICD-10) History of temporomandibular joint disorder ?Z87.39 - Personal history of other diseases of the musculoskeletal system and connective tissue (ICD-10) History of anemia ?Z86.2 - Personal history of diseases of the blood and blood-forming organs and certain disorders involving the immune mechanism (ICD-10) <Guanako Bryan DO - Last Filed: 06/26/24 08:02> Surgical History: Surgical History History of hysterectomy ?Z90.710 - Acquired absence of both cervix and uterus (ICD-10) History of gastric bypass ?Z98.84 - Bariatric surgery status (ICD-10) History of section ?Z98.891 - History of uterine scar from previous surgery (ICD-10) <Guanako Bryan DO - Last Filed: 06/26/24 08:02> Family History: Family History Father Diabetes Leukemia Family/Other Heart disease Other Kidney disease Stroke <Guanako Bryan DO - Last Filed: 06/26/24 08:02> Social History: Social History Narrative: nonsmoker What is your current living situation?: I presently have a place to live Problems where you live: no known problems In the past 12 months, utilities in danger of being shut off: no In past 12 months, lack of transportation kept you from medical appts, meetings, work, or getting things needed for daily living: no In the past 12 mos, have been you worried that your food would run out before you had money to buy more?: never true In the past 12 mos, the food you bought just didn't last and you didn't have money to buy more?: never true Smoking Status: Never smoker Do you use any of these nicotine containing products: None Second hand tobacco smoke exposure: No How often do you have a drink containing alcohol: monthly or less AUDIT-C Alcohol total score: 1 Non-prescribed substance use: denies use How often does anyone, including family, friends and others, physically hurt you : never How often does anyone, including family, friends and others, insult or talk down to you: never How often does anyone, including family, friends and others, threaten you with harm: never How often does anyone, including family, friends and others, scream or curse at you: never service: No <Guanako Bryan DO - Last Filed: 06/26/24 08:02> Exam Narrative: Exam Narrative: Const: Well-nourished, Well-developed, in mild distress Eyes: PERRL, no conjunctival injection, and symmetrical lids HENT: Atraumatic external nose and ears. Moist mucous membranes. Neck: Symmetric, trachea midline, No thyromegaly. CVS: RRR, No murmurs or gallops. Peripheral pulses 2+ and equal in all ex tremities RESP: Unlabored respiratory effort. Clear to auscultation bilaterally. GI: Nontender/Nondistended, No rebound or guarding. MSK:Extremities w/o deformity, Normal Active ROM Skin: Warm, Dry. No rashes or lesions. Neuro: Normal Muscle tone, No focal neurological deficits. Psych: Awake, Alert, & Oriented x3. Appropriate mood and affect. <Guanako Bryan DO - Last Filed: 06/26/24 08:02> Const: Vital Signs, click to edit/add: Vital Signs - 24 hr 06/26/24 06:37 06/26/24 06:47 Temperature 99.9 F H Pulse Rate [Left P ulse Oximeter] 100 Respiratory Rate 20 Blood Pressure [Ri ght Upper Arm] 117/73 Pulse Oximetry 99 Oxygen Delivery Me thod Room Air Room Air <Guanako Bryan DO - Last Filed: 06/26/24 08:02> Vital Signs, click to edit/add: Vital Signs - 24 hr 06/26/24 06:37 06/26/24 06:47 Temperature 99.9 F H Pulse Rate [Left P ulse Oximeter] 100 Respiratory Rate 20 Blood Pressure [Ri ght Upper Arm] 117/73 Pulse Oximetry 99 Oxygen Delivery Me thod Room Air Room Air <Leonila Maldonado MD - Last Filed: 06/26/24 09:08> Course Vital Signs Vital signs: Initial Vital Signs Temperature Source Temporal Artery Scan 06/26/24 06:37 Respiratory Effort Normal, Spontaneous, Non-Labored 06/26/24 06:37 Respiratory Depth Normal 06/26/24 06:37 Respiratory Pattern Normal 06/26/24 06:37 Oxygen Delivery Method Room Air 06/26/24 06:37 Sepsis Recent Fever Within 48 Hours Yes 06/26/24 06:37 Sepsis New/Unexplained Change in Mental Status No 06/26/24 06:37 Sepsis Action Taken by Nursing No Action Required 06/26/24 06:37 Vital Signs Oxygen Delivery Method Room Air 06/26/24 06:37 Temperature 99.9 F H 06/26/24 06:47 Pulse Rate 100 06/26/24 06:47 Respiratory Rate 20 06/26/24 06:47 Blood Pressure 117/73 06/26/24 06:47 Pulse Oximetry 99 06/26/24 06:47 Oxygen Delivery Method Room Air 06/26/24 06:47 <Guanako Bryan DO - Last Filed: 06/26/24 08:02> Initial Vital Signs Temperature Source Temporal Artery Scan 06/26/24 06:37 Respiratory Effort Normal, Spontaneous, Non-Labored 06/26/24 06:37 Respiratory Depth Normal 06/26/24 06:37 Respiratory Pattern Normal 06/26/24 06:37 Oxygen Delivery Method Room Air 06/26/24 06:37 Sepsis Recent Fever Within 48 Hours Yes 06/26/24 06:37 Sepsis New/Unexplained Change in Mental Status No 06/26/24 06:37 Sepsis Action Taken by Nursing No Action Required 06/26/24 06:37 Vital Signs Oxygen Delivery Method Room Air 06/26/24 06:37 Temperature 99.9 F H 06/26/24 06:47 Pulse Rate 100 06/26/24 06:47 Respiratory Rate 20 06/26/24 06:47 Blood Pressure 117/73 06/26/24 06:47 Pulse Oximetry 99 06/26/24 06:47 Oxygen Delivery Method Room Air 06/26/24 06:47 <Leonila Maldonado MD - Last Filed: 06/26/24 09:08> Medications Administered Medications: Discontinued Medications Generic Name Dose Route Start Last Admin Trade Name Freq PRN Reason Stop Dose Admin Diphenhydramine HCl 25 mg 06/26/24 07:10 06/26/24 08:01 Diphenhydramine 50 Mg/Ml Inj IVP 06/26/24 07:11 25 mg ONCE ONE Administration Lactated Ringer's 1,000 mls @ 1,000 mls/hr 06/26/24 07:10 06/26/24 07:58 Lactated Ringers 1000 Ml IV 06/26/24 08:09 1,000 mls/hr .Q1H ONE Administration Ketorolac Tromethamine 15 mg 06/26/24 07:10 06/26/24 07:59 Ketorolac 15 Mg/Ml Inj IVP 06/26/24 07:11 15 mg ONCE ONE Administration Metoclopramide HCl 10 mg 06/26/24 07:10 06/26/24 08:03 Metoclopramide Hcl 5 Mg/Ml Inj IVP 06/26/24 07:11 10 mg ONCE ONE Administration Potassium Chloride 40 meq 06/26/24 07:57 06/26/24 08:48 Potassium Chloride 10 Meq Capsule Er PO 06/26/24 07:58 40 meq ONCE ONE Administration <Guanako Bryan DO - Last Filed: 06/26/24 08:02> Discontinued Medications Generic Name Dose Route Start Last Admin Trade Name Zakia PRN Reason Stop Dose Admin Diphenhydramine HCl 25 mg 06/26/24 07:10 06/26/24 08:01 Diphenhydramine 50 Mg/Ml Inj IVP 06/26/24 07:11 25 mg ONCE ONE Administration Lactated Ringer's 1,000 mls @ 1,000 mls/hr 06/26/24 07:10 06/26/24 07:58 Lactated Ringers 1000 Ml IV 06/26/24 08:09 1,000 mls/hr .Q1H ONE Administration Ketorolac Tromethamine 15 mg 06/26/24 07:10 06/26/24 07:59 Ketorolac 15 Mg/Ml Inj IVP 06/26/24 07:11 15 mg ONCE ONE Administration Metoclopramide HCl 10 mg 06/26/24 07:10 06/26/24 08:03 Metoclopramide Hcl 5 Mg/Ml Inj IVP 06/26/24 07:11 10 mg ONCE ONE Administration Potassium Chloride 40 meq 06/26/24 07:57 06/26/24 08:48 Potassium Chloride 10 Meq Capsule Er PO 06/26/24 07:58 40 meq ONCE ONE Administration <Leonila Maldonado MD - Last Filed: 06/26/24 09:08> Medical Decision Making MDM Narrative Medical decision making narrative: Patient is a 48-year-old female presenting for flu-like symptoms. For her headache she states she has had headaches like this before and cannot do not believe imaging is necessary. Will give her a migraine cocktail. She is also having intermittent chest pain. The differential diagnosis of chest pain is broad and includes common etiologies such as musculoskeletal strain, GERD, pneumonia, etc. More serious etiologies considered include PE, coronary artery disease, pneumothorax, aortic dissection, aortic aneurysm. Considering his is intermittent and seems more likely to related to the likely viral infection. Do not believe it is from an aortic dissection, aortic aneurysm, or PE. Will blow do an EKG and troponin to look for signs of ACS or other heart conditions. Ches t x-ray ordered to look for signs of pneumonia. Will order CBC, BMP, COVID/flu/RSV swab also. Patient is COVID positive. EKG, troponin, CBC shows no concerning abnormalities. BMP shows hypokalemia at 3.0. This is unlikely to be causing any symptoms but was replenished. Do not believe repeat troponin is necessary as symptoms started yesterday. Patient was signed out to my colleague pending c ompletion of migraine cocktail and chest x-ray. <Guanako Bryan, DO - Last Filed: 06/26/24 08:02> Lab Data Labs: Lab Results 06/26/24 06/26/24 06/26/24 Range/Units 06:37 07:10 07:25 WBC 3.13 L (4.50-11.00) K/uL RBC 3.82 L (4.00-5.20) m/uL Hgb 11.5 L (12.0-16.0) gm/dL Hct 35.4 (33.0-51.0) % MCV 93 (80-100) fL MCH 30 (26-34) pg MCHC 33 (32-36) gm/dL RDW Coeff of [place]ist[place] 13.1 (11.5-15.5) % Plt Count 123 L (140-440) K/uL Neut % (Auto) 84.4 H (42.0-72.0) % Lymph % (Auto) 7.3 L (20-44) % [place] % (Auto) 7.7 (0.0-11.0) % Eos % (Auto) 0.3 (0.0-7.0) % Baso % (Auto) 0.3 (0.0-3.0) % Neut # (Auto) 2.60 (1.7-7.0) K/uL Lymph # (Auto) 0.20 L (0.90-2.90) K/uL [place] # (Auto) 0.20 (0.00-0.90) K/UL Eos # (Auto) 0.00 (0.00-0.50) K/uL Baso # (Auto) 0.00 (0.00-0.30) K/uL Abs Immat Gran (auto) 0.00 (0.00-0.30) K/uL Imm/Tot Granulo (auto) 0.0 % Sodium 135 (135-149) mmol/L Potassium 3.0 L (3.6-5.1) mmol/L Chloride 103 (96-114) mmol/L Carbon Dioxide 27 (20-32) mmol/L Anion Gap 5 L (7-15) mEq/L BUN 7 (5-24) mg/dL Creatinine 0.6 (0.5-1.5) mg/dL Estimated Creat Clear 104.30 Estimated GFR 111 ml/min Glucose 100 (60-115) mg/dL Calcium 8.9 (8.4-10.6) mg/dL SARS-CoV-2 (PCR) POSITIVE SARS-CoV-2 A (Negative) Influenza Type A (PCR) Negative PCR FLU A (Negative) Influenza Type B (PCR) Negative PCR FLU B (Negative) RSV (PCR) Negative PCR RSV (Negative) POC Troponin I 0.00 L (0.01-0.04) ng/ml <Guanako Bryan, DO - Last Filed: 06/26/24 08:02> Lab Results 06/26/24 06/26/24 06/26/24 Range/Units 06:37 07:10 07:25 WBC 3.13 L (4.50-11.00) K/uL RBC 3.82 L (4.00-5.20) m/uL Hgb 11.5 L (12.0-16.0) gm/dL Hct 35.4 (33.0-51.0) % MCV 93 (80-100) fL MCH 30 (26-34) pg MCHC 33 (32-36) gm/dL RDW Coeff of [place] 13.1 (11.5-15.5) % Plt Count 123 L (140-440) K/uL Neut % (Auto) 84.4 H (42.0-72.0) % Lymph % (Auto) 7.3 L (20-44) % [place] % (Auto) 7.7 (0.0-11.0) % Eos % (Auto) 0.3 (0.0-7.0) % Baso % (Auto) 0.3 (0.0-3.0) % Neut # (Auto) 2.60 (1.7-7.0) K/uL Lymph # (Auto) 0.20 L (0.90-2.90) K/uL [place] # (Auto) 0.20 (0.00-0.90) K/UL Eos # (Auto) 0.00 (0.00-0.50) K/uL Baso # (Auto) 0.00 (0.00-0.30) K/uL Abs Immat Gran (auto) 0.00 (0.00-0.30) K/uL Imm/Tot Granulo (auto) 0.0 % Sodium 135 (135-149) mmol/L Potassium 3.0 L (3.6-5.1) mmol/L Chloride 103 (96-114) mmol/L Carbon Dioxide 27 (20-32) mmol/L Anion Gap 5 L (7-15) mEq/L BUN 7 (5-24) mg/dL Creatinine 0.6 (0.5-1.5) mg/dL Estimated Creat Clear 104.30 Estimated GFR 111 ml/min Glucose 100 (60-115) mg/dL Calcium 8.9 (8.4-10.6) mg/dL SARS-CoV-2 (PCR) POSITIVE SARS-CoV-2 A (Negative) Influenza Type A (PCR) Negative PCR FLU A (Negative) Influenza Type B (PCR) Negative PCR FLU B (Negative) RSV (PCR) Negative PCR RSV (Negative) POC Troponin I 0.00 L (0.01-0.04) ng/ml <Leonila Maldonado MD - Last Filed: 06/26/24 09:08> Imaging Data Chest x-ray: Attestation: I have reviewed the pertinent imaging results. <Leonila Tavarez MD - Last Filed: 06/26/24 09:08> Radiologist's impression: Patient: ROSSY GUPTA Facility:?[facility] Patient ID:?[id number] Site Patient ID:?[id number]. Site :?[id number] Study:?XRay-Chest 2V-06/26/2024 8:37:58 AM Ordering Physician:Mario Mujica Final Report: Indication: fevers, chest pain, covid +. Technique: View(s) of the chest. Comparison: None available. Findings: Unchanged cardiomediastinal silhouette and pulmonary vasculature. Lungs are well inflated. No focal consolidation, pleural effusion or pneumothorax. No acute osseous abnormality. Chain suture material in the upper abdomen. Impression: No acute cardiopulmonary abnormality identified. Dictated by Vibha Huynh MD @ 06/26/2024 8:44:58 AM (Electronic Signature) <Leonila Maldonado MD - Last Filed: 06/26/24 09:08> ECG Data Attestation: I personally reviewed and interpreted this ECG as follows: <Guanako Bryan DO - Last Filed: 06/26/24 08:02> Prior ECG tracings: not available for review <Guanako Bryan DO - Last Filed: 06/26/24 08:02> Interpretation: Normal sinus rhythm with rate any for beats per minute, normal intervals, normal axis, no ST abnormalities. Difficult to be of the same T-wave abnormalities as they are all very flat. There may be some inversions in V3. <Guanako Bryan DO - Last Filed: 06/26/24 08:02> Discharge Plan Discharge Clinical Impression: COVID <Guanako Bryan DO - Last Filed: 06/26/24 08:02> Patient Disposition: Home, Self-Care <Guanako Bryan DO - Last Filed: 06/26/24 08:02> Condition: Stable <Guanako Bryan DO - Last Filed: 06/26/24 08:02> Instructions: COVID-19 (Coronavirus Disease 2019) (ED) <Guanako Bryan DO - Last Filed: 06/26/24 08:02> Additional Instructions: Quarantine for 5 days and 72 hours without a fever. Return to emergency department for new or worsening symptoms. Take the Paxlovid as directed. Stop taking the Paxlovid if you start having worsening chest pain, shortness of breath, lightheadedness, dizziness or any other concerning symptoms. There is a likely weak reaction with the nortriptyline but current recommendations are to not adjust the dose. <Guanako Bryan DO - Last Filed: 06/26/24 08:02> Prescriptions: New Paxlovid 300 mg (150 mg x 2)-100 mg tablets,dose pack See Rx Instructions .ROUTE .COMPLEX Qty: 30 0RF Rx Instructions: take TWO 150 mg tablets of nirmatrelvir with ONE 100 mg tablet of ritonavir twice daily for 5 days No Action acetaminophen-codeine 300-30 mg tablet 1 tab PO Q6H PRN duloxetine 30 mg capsule,delayed release(DR/EC) 30 mg PO BID Qty: 180 3RF nortriptyline 50 mg capsule 50 mg PO QHS Qty: 90 3RF topiramate [Topamax] 25 mg tablet 25 mg PO QHS Qty: 30 12RF cholecalciferol (vitamin D3) 1,250 mcg (50,000 unit) capsule 1,250 mcg PO QWEEK Qty: 12 0RF <Guanako Bryan DO - Last Filed: 06/26/24 08:02> Follow Up/Referrals: Koki Fagan MD [Primary Care Provider] - <Guanako Bryan DO - Last Filed: 06/26/24 08:02> Stand Al[facility]: [facility] <Guanako Bryan DO - Last Filed: 06/26/24 08:02>
--- NOTE | 2024-06-26 07:17 | CRLHL7_ITS ---
For Patients: As a result of the Cures Act, medical imaging exams and procedure reports are released immediately into your electronic medical record. You may view this report before your referring provider. If you have questions, please contact your health care provider. Indication: fevers, chest pain, covid +. Technique: View(s) of the chest. Comparison: None available. Findings: Unchanged cardiomediastinal silhouette and pulmonary vasculature. Lungs are well inflated. No focal consolidation, pleural effusion or pneumothorax. No acute osseous abnormality. Chain suture material in the upper abdomen. Impression: No acute cardiopulmonary abnormality identified. Dictated by Vibha Huynh MD @ 06/26/2024 8:44:58 AM (Electronically Signed)
[2024-06-26 07:35] LABS: Basophils Percent Auto 0.3 % (0.0-3.0); Eosinophils Percent Auto 0.3 % (0.0-7.0); Hematocrit 35.4 % (33.0-51.0); Hemoglobin* 11.5 gm/dL (12.0-16.0); Lymphocytes Percent Auto 7.3 % (20-44); Mean Corpuscular HGB Conc 33 gm/dL (32-36); Mean Corpuscular Hemoglobin 30 pg (26-34); Mean Corpuscular Volume 93 fL (80-100); Monocytes Percent Auto 7.7 % (0.0-11.0); Neutrophils Percent Auto 84.4 % (42.0-72.0); Platelet Count* 123 K/uL (140-440); RDW Coefficient of Variation % 13.1 % (11.5-15.5); Red Blood Count 3.82 m/uL (4.00-5.20); White Blood Count* 3.13 K/uL (4.50-11.00)
[2024-06-26 07:36] LABS: PCR FLU A Negative PCR FLU A (Negative); PCR FLU B Negative PCR FLU B (Negative); PCR RSV Negative PCR RSV (Negative); SARS PCR* POSITIVE SARS-CoV-2 (Negative)
[2024-06-26 07:41] LABS: Slide Review Reflex No
[2024-06-26 07:48] LABS: Chloride* 103 mmol/L (96-114); Sodium* 135 mmol/L (135-149)
[2024-06-26 07:50] LABS: Creatinine* 0.6 mg/dL (0.5-1.5); Estimated Glomerular Filt Rate 111 ml/min
[2024-06-26 07:51] LABS: Anion Gap 5 mEq/L (7-15); Blood Urea Nitrogen* 7 mg/dL (5-24); Calcium* 8.9 mg/dL (8.4-10.6); Carbon Dioxide* 27 mmol/L (20-32); Glucose* 100 mg/dL (60-115)
[2024-06-26] MEDS: LACTATED RINGERS 1000 ML 1,000 ML IV (07:58)
[2024-06-26] MEDS: KETOROLAC 15 MG/ML inj IVP (07:59)
[2024-06-26] MEDS: diphenhydrAMINE 50 MG/ML inj 25 MG IVP (08:01)
[2024-06-26] MEDS: METOCLOPRAMIDE HCL 5 MG/ML INJ 10 MG IVP (08:03)
[2024-06-26] MEDS: POTASSIUM CHLORIDE 10 MEQ CAPSULE ER 40 MEQ PO (08:48)
[2024-06-26 09:06] VITALS: BP 103/64; PULSE 79; RESP 20; TEMP 37.9; O2SAT 98
== END 2024-06-26 09:27 | disposition home or self-care (01) ==
PROVIDERS: Emergency Provider Student in an Organized Health Care Education/Training Program; PCP Family Medicine
DX: U07.1 COVID-19 (principal)
CPT/HCPCS: 36415; 71046; 80048; 84484; 85025; 87631; 93005; 96374; 96375; 99284; A9270; J1200; J1885; J2765; J7120

== ENCOUNTER 2024-08-07 06:30 | Emergency (ER) | payer OTHER, SELFPAY ==
--- OUTSIDE RECORDS SUMMARY | 2024-08-07 06:33 | XMS_ITS | Encounter Summary ---
Author Organization [facility] Address [address] [place] [id number] Care Team Providers Care Group Manager Name Role Phone Meghna Potter MD Primary Care P rovider No Ref-Primary, Physician Primary Care Provider Meghna Potter MD Unavailable Omar Spicer MD Unavailable Roger Moseley DDS Unavailable [phone] Omar Spicer MD Unavailable Reason for Visit * Reason Onset Date Comments Results 04/12/2010 labs Encounter Details Date Type Department Care Team (Late st Contact Info) Description 04/12/2010 Telephone [facility] [address] [address] Julia Arshad MD XXX RESIGNED XXX [address] [place] [address] Results (labs ) Social History Tobacco Use Types Packs/Day Years Used Date Smoking Tobacco: Never Comments:no second hand smok e Alcohol Use Standard Drinks/Week Comments Yes 0 (1 standard drink = 0.6 oz pur e alcohol) socialy Comments No Sex and Gender Information Value Date Recorded Sex Assigned at Not on file 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 Gender Identity Not on file Sexual Orientation [...] on filedocumented in this encounter Care Teams Group Manager Relationship Specialty [place] [address] [place] [id number] PCP - General Family Practice 08/26/09 05/04/18 No Ref-Primary, Physician PCP - General 05/05/18 [place] [address] [phone] Family Practice 05/05/18 Omar Spicer MD [address] [facility] [id number] [place] [address] Neurological Surgery 11/18/20 Roger Moseley DDS [facility] [address] [facility] [address] [place] [address] Referring Physician Dentist 11/18/20 Omar Spicer MD [address] [facility] [id number] [place] [address] Assigned Neuroscience Provider 12/18/20 11/23/22 documented as of this encounter
--- OUTSIDE RECORDS SUMMARY | 2024-08-07 06:33 | XMS_ITS | Continuity of Care Document ---
Author Organization [facility] enter Address [address] [place] [phone] Phone Care Team Providers Care Party Plan Selling Distributor Name Role Phone [facility] Unavailable Unava ilable Procedures Procedure Date [...] Diagnoses Date Provider Providers Copied on Encounter [facility], [address] [place] [address], [id number], tel:[phone] [place] [address] No Information 2 [facility]. [address] [place] [address], [id number], [place]. tel:[phone] Referring Provider: Williams Saunders [address], [place], [address]. tel:[phone] [facility], [address] [place] [address], [id number], tel:[phone] [place] [address] No Information 2 [facility]. [address] [place] [address], [id number], . tel:[phone] Referring Provider: Williams Saunders [employer] [address], [place], [address]. tel:[phone] [facility], [address] [place] [address], [id number], tel:[phone] [place] [address] No Information [facility]. [address] [place] [address], [id number], . tel:[phone] Referring Provider: Williams Saunders [employer] [facility] [address], [place], [address]. tel:[phone] [facility], [address] [place] [address], [id number], tel:[phone] [place] [address] No Information [facility]. [address] [place] [address], [id number], . tel:[phone] Referring Provider: Williams Saunders [employer] [address] [facility] [address], [place], [address]. tel:[phone] [facility], [address] [place] [address], [id number], tel:[phone] [place] [address] No Information [facility]. [address] [place] [address], [id number], . tel:[phone] Referring Provider: Williams Saunders [facility] [address] [facility] [address], [place], [address]. tel:[phone] Family History Family Member Type Diagnosis Age At Onset No Information Payers Payer name Insurance type Covered democrat ID Authoriza timiller(s) [facility] [id number] Social History Type Description Quantity Date [...]
--- OUTSIDE RECORDS SUMMARY | 2024-08-07 06:33 | XMS_ITS | Encounter Summary ---
Author Organization [facility] Address [address] [place] [id number] Care Team Providers Care Employee Relations Consultant Name Role Phone Meghna Potter MD Primary Care P rovider No Ref-Primary, Physician Primary Care Provider Meghna Potter MD Unavailable Omar Spicer MD Unavailable Roger Moseley DDS Unavailable [phone] Omar Spicer MD Unavailable [phone] Reason for Visit * Reason Onset Date Comments Medication Request 03/19/2011 Encounter Details Date Type Department Care Team (Late st Contact Info) Description 03/19/[address] [phone] Aminata Singh PA-C [facility] [address] [address] Medication Request Social History Tobacco Use Types Packs/Day Years Used Date Smoking Tobacco: Never Smokeless Tobacco: Never Comments:no second hand smok e Alcohol Use Standard Drinks/Week Comments Yes 0 (1 standard drink = 0.6 oz pur e alcohol) socialy Comments No Sex and Gender Information Value Date Recorded Sex Assigned at Not on file Legal Sex Female 4:57 AM [employer] Gender Identity Not on file Sexual [...] 8:04 AM CDT Please call Leilani at [phone] anytime or leave message re; received an Rx for Aldara 5% cream(02-22 and again 03-16/)and she is requesting a pill form instead due to her work schedule(difficult to apply-pills would be much easier). [facility] - didn' have # Thank you documented in this encounter Plan of Treatment Not on file documented as of this encounter Visit Diagnoses Diagnosis BV (bacterial vaginosis)- Primary Vaginitis and vulvovaginitis, unspecified documented in this encounter Care Teams Employee Relations Consultant Relationship Specialty [place] [address] [address] [id number] PCP - General Family Practice 08/26/09 05/04/18 No Ref-Primary, Physician PCP - General 05/05/18 [place] [address] [address] [phone] Family Practice 05/05/18 Omar Spicer MD [address] [place], [place] [id number] [address] Neurological Surgery 11/18/20 Roger Moseley DDS MD [facility] [address] [facility] [address] [place] [address] Referring Physician Dentist 11/18/20 Omar Spicer MD [address] [facility] [id number] [place] [address] Assigned Neuroscience Provider 12/18/20 11/23/22 documented as of this encounter
--- OUTSIDE RECORDS SUMMARY | 2024-08-07 06:33 | XMS_ITS | Continuity of Care Document ---
Author Organization [facility] Address [address] [place] [address] Phone Care Team Providers Care Healthcare Receptionist Name Role Phone Will Omar ZEPEDA Unavailable [...] times every day 15 MG - Active cholecalciferol (vitamin D3) 50 mcg (2,000 unit) capsule - Active trazodone 50 mg tablet take 1 tablet by oral route every day at bedtime 50 MG - Active gabapentin 300 mg capsule take 1 capsule by oral route 3 times every day 300 MG - Active hydrochlorothiazide 12.5 mg tablet take 1 tablet by oral route every day 12.5 MG - Active diclofenac sodium 50 mg tablet,delayed release take 1 tablet by oral route 2 times every day 50 MG - Active hydroxyzine HCl 25 mg tablet take 1 tablet by oral route every day as needed 25 MG - Active cyanocobalamin (vitamin B-12) 1,000 mcg capsule - Active carbamazepine ER 300 mg capsule,extended release [id number] take 1 capsule by oral route every 12 hours 300 MG - Active Procedures Procedure Date OFFICE/OUTPATIENT VISIT, EST OFFICE/OUTPATIENT VISIT, EST BILATERAL MAJOR JOINT/BURSA DRAIN/INJ WI TH ULTRASO MEDIUM JOINT/BURSA DRAIN/INJECT,WITH ULT RASOUND Foll-up eval q3mo opiod tx OFFICE/OUTPATIENT VISIT, EST ROUTINE BLOOD DRAW No Charge For Visit Per Prov Drug test def 15-21 classes Drug Urine Toxology With Chromatography Foll-up eval q3mo opiod tx OFFICE/OUTPATIENT VISIT, [...] Diagnoses Date Provider Providers Copied on Encounter [facility], [address] [place], [place], [id number] , [place] tel:[phone] [facility] [place] No Information Jose Nelson. [address] [place], [id number] , [place]. tel: [phone] OFFICE/OUTPA TIENT VISIT, [facility], [address] [place], [place], [id number] , [place] tel: [phone] [facility] [place] Facial Pain (chief complaint) Anxiety disorder, unspecifiedChronic migraine without aura, intractable, without status migrainosusTrigemi nal neuralgiaPain in right kneePain in left kneeUnspecified temporomandibular joint disorder, unspecified sideTrochanteric bursitis, left hipFatigueLong term (current) use of opiate analgesicOther long term care phlebotomist (current) drug therapyChronic pain syndrome Aug- 2 Saunders Williams. [employer], [address], [place], [address], [place]. tel:[phone] Referring Provider: [facility] [address], [place], [address]. tel:[phone] OFFICE/OUTPA TIENT VISIT, [facility], [address] [place], [place], [id number] , [place] tel: [phone] [facility] Facial pain (chief complaint) Unspecified temporomandibular joint disorder, unspecified sideTrochanteric bursitis, left hipLong term (current) use of opiate analgesicChronic pain syndromeChronic migraine without aura, intractable, without status migrainosusAnxiety disorder, unspecifiedOther long term care phlebotomist (current) drug therapyPain in right kneePain in left kneeTrigeminal neuralgiaFatigue 2 Saunders Williams. [employer], [address], [place], [address], [place]. [phone] Referring Provider: [facility] [address], [place], [address]. [phone] [facility], [address] [place], [place], [id number] , [place] tel:[phone] [facility] Pain in right kneePain in left knee 2 Saunders Williams. [facility], [address], [place], [address], [place]. tel: [phone] Referring Provider: Denton Wang [facility] [address], [place], [address]. tel:[phone] [facility], [address], [place], [id number] , [place] tel: [phone] [facility] Unspecified temporomandibular joint disorder, unspecified side 2 Saundersgrisel Kramer. [facility], [address], [place], [address], [place]. tel: [phone] Referring Provider: Denton Wang [facility] [address], [place], [address]. tel:[phone] OFFICE/OUTPA TIENT VISIT, [facility], [address] [place], [place], [id number] , [place] tel: [phone] [facility] Facial pain (chief complaint) Unspecified temporomandibular joint disorder, unspecified sideTrochanteric bursitis, left hipLong term (current) use of opiate analgesicChronic pain syndromeChronic migraine without aura, intractable, without status migrainosusAnxiety disorder, unspecifiedOther long term care phlebotomist (current) drug therapyPain in right kneePain in left kneeTrigeminal neuralgia 2 Nyongesa Krupa. [address], [place], [place], [id number] , [place]. tel: [phone] Referring Provider: Denton Wang [facility] [address], [place], [address]. tel:[phone] [facility], [address] [place] [address], [id number] , [place] tel: [phone] [facility] No Information 2 Nyongesa Krupa. [address], [place], [place], [id number] , [place]. tel: [phone] Referring Provider: Omar Ferrera, [address] [place], [address]. tel:[phone] OFFICE/OUTPA TIENT VISIT, [facility], [address] [place], [id number] , [place] tel:[phone] [facility] Facial pain (chief complaint) Unspecified temporomandibular joint disorder, unspecified sideTrochanteric bursitis, left hipLong term (current) use of opiate analgesicChronic pain syndromeChronic migraine without aura, intractable, without status migrainosusAnxiety disorder, unspecifiedOther long term care phlebotomist (current) drug therapyPain in right kneePain in left kneeTrigeminal neuralgiaEncounter for therapeutic drug level monitoring 2 Heathersa Krupa. [address], [place], [id number] , [place]. tel:[phone] Referring Provider: Denton Wang [facility] [address], [place], [address]. [phone] [facility], [address] [place], [id number] , [place] tel:[phone] [facility] No Information 2 Nyaguilar Krupa. [address] [facility] [address], [place], [id number] , [place]. tel:[phone] OFFICE/OUTPA TIENT VISIT, [facility], [address] [place], [address] , [place] tel:[phone] [facility] Facial pain (chief complaint) Unspecified temporomandibular joint disorder, unspecified sideTrochanteric bursitis, left hipLong term (current) use of opiate analgesicChronic pain syndromeChronic migraine without aura, intractable, without status migrainosusAnxiety disorder, unspecifiedOther long term care phlebotomist (current) drug therapyPain in right kneePain in left kneeTrigeminal neuralgia 2 Nyongesa Krupa. [address] [facility] [address], [place], [id number] , [place]. tel:[phone] Referring Provider: [facility]and[facility] [address], [place], [address]. tel:[phone] [facility], [address] [place], [place], [id number] , [place] [phone] [facility] Unspecified temporomandibular joint disorder, unspecified side 2 Saunders Williams. [facility], [address], [place], [address], [place]. tel:[phone] Referring Provider: [facility] [address], [place], [address]. [phone] [facility], [address] [place] [address], [id number] , [place] [phone] [facility] Trochanteric bursitis, left hip 1 Saunders Williams. [facility], [address], [place], [address], [place]. tel:[phone] Referring Provider: [facility] [address], [place], [address]. [phone] [facility], [address] [place] [address], [id number] , [place] [phone] [facility] [place] No Information 1 Dorothy Gentile. [address] [place] [address] Rd [address], [place], [place], [id number] , [place]. tel:[phone] OFFICE/OUTPA TIENT VISIT, [facility], [address] [place], [place], [id number] , [place] tel:[phone] [facility] [place] Facial pain (chief complaint) TMJ disorderLong term (current) use of opiate analgesicTrochante stephanie bursitis, left hipChronic pain syndromeAnxiety disorder, unspecifiedChronic migraine without aura, intractable, without status migrainosusTrigemi nal neuralgiaOther fpc (current) drug therapyPain in right kneePain in left kneeEncounter for therapeutic drug level monitoring 1 Dorothy Gentile. [address] [facility] [address], [place], [place], [id number] , [place]. tel: [phone] Referring Provider: Denton Wang [facility] [address], [place], [address]. tel:[phone] OFFICE/OUTPA TIENT VISIT, [facility], [address] [place], [place], [id number] , [place] tel: [phone] [facility] Facial pain (chief complaint) Trigeminal neuralgiaTMJ disorderLong term (current) use of opiate analgesicTrochante stephanie bursitis, left hipChronic pain syndromeFacial pain NOSAnxiety disorder, unspecifiedChronic migraine without aura, intractable, without status migrainosus 1 Chip Kramer. [facility], [address], [place], [address], [place]. tel: [phone] Referring Provider: Denton Wang [facility] [address], [place], [address]. tel:[phone] [facility], [address] [place], [place], [id number] , [place] tel: [phone] [facility] Facial pain (chief complaint) Chronic migraine without aura, intractable, without status migrainosusTrigemi nal neuralgiaTMJ disorderLong term (current) use of opiate analgesicTrochante stephanie bursitis, left hipChronic pain syndromeFacial pain NOSAnxiety disorder, unspecifiedOther fpc (current) drug therapy 1 Dorothy Gentile. [address] [facility] [address], [place], [id number] , [place]. tel: [phone] Referring Provider: Denton Wang [facility] [address], [place], [address]. tel:[phone] OFFICE/OUTPA TIENT VISIT, [facility], [address] [place], [place], [id number] , [place] tel: [phone] [facility] Facial pain (chief complaint) Chronic migraine without aura, intractable, without status migrainosusTrigemi nal neuralgiaTMJ disorderLong term (current) use of opiate analgesicTrochante stephanie bursitis, left hipChronic pain syndromeFacial pain NOS 1 Dorothy Gentile. [address] [facility] [address], [place], [id number] , [place]. tel: [phone] Referring Provider: Denton Wang [facility] [address], [place], [address]. tel:[phone] [facility], [address] [place], [place], [id number] , [place] tel: [phone] [facility] Trochanteric bursitis, left hip 1 [facility], [address], [place], [address], [place]. tel: [phone] Referring Provider: Denton Wang [facility] [address], [place], [address]. tel:[phone] OFFICE/OUTPA TIENT VISIT, [facility], [address] [place] [address], [id number] , [place] tel: [phone] [facility] Facial pain (chief complaint) Chronic migraine without aura, intractable, without status migrainosusTrigemi nal neuralgiaTMJ disorderLong term (current) use of opiate analgesicTrochante stephanie bursitis, left hipChronic pain syndromeFacial pain NOS 1 Dorothy Gentile. [address] [facility] [address], [place], [id number] , [place]. tel: [phone] Referring Provider: Denton Wang [facility] [address], [place], [address]. tel:[phone] OFFICE/OUTPA TIENT VISIT, [facility], [address] [place], [place], [id number] , [place] tel: [phone] [facility] Facial pain (chief complaint) left hip pain (chief complaint) Chronic migraine without aura, intractable, without status migrainosusTrigemi nal neuralgiaTMJ disorderLong term (current) use of opiate analgesicTrochante stephanie bursitis, left hipChronic pain syndromeFacial pain NOS Arnaud-0 1 Dorothy Gentile. [address], [place], [id number] , [place]. tel:[phone] Referring Provider: [facility] [address], [place], [address]. tel:[phone] [facility], [address] [place] [address], [id number] , [place] tel:[phone] [facility] [place] No Information 1 Dorothy Gentile. [address], [place], [id number] , [place]. tel:[phone] Referring Provider: Omar Ferrera, [address] [place], [address]. tel:[phone] OFFICE/OUTPA TIENT VISIT, [facility], [address] [place], [place], [id number] , [place] tel:[phone] [facility] facial pain (chief complaint) Chronic pain syndromeEncounter for screening for other disorderFacial pain NOSTrigeminal neuralgiaTMJ disorderLong term (current) use of opiate analgesicEncounter for therapeutic drug level monitoringTrochant gely bursitis, left hipChronic migraine without aura, intractable, without status migrainosus 1 Dorothy Gentile. [address], [place], [id number] , [place]. tel:[phone] Referring Provider: [facility] [address], [place], [address]. tel:[phone] Family History Family Member Type Diagnosis Age At Onset Problem Family history of chronic pa in Payers Payer name Insurance type Covered constitution party ID Dee lovelace(s) [facility] [id number] Social History Type Description Quantity Date [...] Social History. Due o n due Goal POWDER COATER Scanned. Due on due Goal OARS. Due on due Goal Order Annual PT. Due on due Goal UDT. Due on due Goal INSPECTOR ELEVATORS Paperwork. Due on due Goal ALT (SGPT). Due on due Goal AST (SGOT). Due on due Goal Creatinine. Due on due Goal AST (SGOT). Due on due Goal Creatinine. Due on due Goal POWDER COATER Scanned. Due on due Goal UDT. Due on due Goal INSPECTOR ELEVATORS Paperwork. Due on due Goal OARS. Due [...] due Goal Creatinine. Due on due Goal POWDER COATER Scanned. Due on due Goal UDT. Due on due Goal INSPECTOR ELEVATORS Paperwork. Due on due Goal Tobacco Use. Due on due Goal OARS. Due on due Goal PHQ-9. Due on du e Goal Height. Due on d ue Goal Update Social History. Due o n due Goal Weight. Due on d ue Goal AST (SGOT). Due on due Goal Creatinine. Due on due Goal POWDER COATER Scanned. Due on due Goal UDT. Due on due Goal INSPECTOR ELEVATORS Paperwork. Due on due Goal ALT (SGPT). [...] Goal Weight. Due on d ue Goal OARS. Due on due Goal ALT [...] due Goal Creatinine. Due on due Goal POWDER COATER Scanned. Due on due Goal UDT. Due on due Goal INSPECTOR ELEVATORS Paperwork. Due on due Goal OARS. Due [...] due Goal Creatinine. Due on due Goal POWDER COATER Scanned. Due on due Goal UDT. Due on due Goal INSPECTOR ELEVATORS Paperwork. Due on due Goal OARS. Due on due Goal AST (SGOT). Due on due Goal Creatinine. Due on due Goal POWDER COATER Scanned. Due on due Goal UDT. Due on due Goal INSPECTOR ELEVATORS Paperwork. Due on due Goal OARS. Due [...] due Goal Creatinine. Due on due Goal POWDER COATER Scanned. Due on due Goal UDT. Due on due Goal INSPECTOR ELEVATORS Paperwork. Due on due Goal OARS. Due [...] Goal Weight. Due on d ue Goal POWDER COATER Scanned. Due on due Goal UDT. Due on due Goal INSPECTOR ELEVATORS Paperwork. Due on due Goal OARS. Due on due Goal AST (SGOT). Due on due Goal Creatinine. Due on due Goal UDT. Due on due Goal INSPECTOR ELEVATORS Paperwork. Due on due Goal Medication Reconciliation. D [...] Goal Weight. Due on d ue Goal POWDER COATER Scanned. Due on due Goal ALT (SGPT). Due on due Goal OARS. Due on due Goal INSPECTOR ELEVATORS Paperwork. Due on due Goal UDT. Due on due Goal POWDER COATER Scanned. Due on due Goal Creatinine. Due on due Goal AST (SGOT). Due on due Goal Height. Due on d ue Goal Update Social History. Due o n due Goal Order Annual PT. Due on due Goal Weight. Due on d ue Goal Medication Reconciliation. D ue on due Goal Review Allergy List. Due on due Goal Tobacco Use. Due on due Goal PHQ-9. Due on du e Goal Tobacco Use. Due on due Goal PHQ-9. Due on du e Goal Height. Due on d ue Goal Update Social History. Due o n due Goal AST (SGOT). Due on due Goal Creatinine. Due on due Goal POWDER COATER Scanned. Due on due Goal UDT. Due on due Goal INSPECTOR ELEVATORS Paperwork. Due on due Goal OARS. Due on due Goal ALT (SGPT). Due on due Goal Order Annual PT. Due on due Goal Weight. Due on d ue Goal Medication Reconciliation. D ue on due Goal Review Allergy List. Due on due Goal Update Social History. Due o n due Goal AST (SGOT). Due on due Goal Creatinine. Due on due Goal POWDER COATER Scanned. Due on due Goal UDT. Due on due Goal INSPECTOR ELEVATORS Paperwork. Due on due Goal OARS. Due on due Goal ALT (SGPT). Due on due Goal Order Annual PT. Due on due Goal Weight. Due on d ue Goal Medication Reconciliation. D ue on due Goal Review Allergy List. Due on due Goal Tobacco Use. Due on due Goal PHQ-9. Due on du e Goal Height. Due on d ue Goal ALT (SGPT). Due on due Goal AST (SGOT). Due on due Goal Creatinine. Due on due Goal POWDER COATER Scanned. Due on due Goal UDT. Due on due Goal INSPECTOR ELEVATORS Paperwork. Due on due Goal OARS. Due on due Goal Order Annual PT. Due on due Goal Weight. Due on d ue Goal Medication Reconciliation. D ue on due Goal Review Allergy List. Due on due Goal Tobacco Use. Due on due Goal PHQ-9. Due on du e Goal Height. Due on d ue Goal Update Social History. Due o n due Goal INSPECTOR ELEVATORS Paperwork. Due on due Goal ALT (SGPT). Due on due Goal OARS. Due on due Goal AST (SGOT). Due on due Goal Creatinine. Due on due Goal POWDER COATER Scanned. Due on due Goal UDT. Due [...] due Goal Creatinine. Due on due Goal POWDER COATER Scanned. Due on due Goal UDT. Due on due Goal INSPECTOR ELEVATORS Paperwork. Due on due Goal OARS. Due [...] starting to hurt again.She was referred to [facility] but did not want to [...] and progressively worsening. Blood work done at [facility] yesterday shows everything is fine per [...] states she takes Lasix for this. At [facility] she stated she has not received a [...] massage, walking, medications, rest, stretching. Facial pain The problem is s evere. [...] for trigeminal neuralgia was not recommended by [facility].She states that she would only be comfortable seeing an -[place] therapist.She is scheduled for a Left GT [...] for trigeminal neuralgia was not recommended by [facility]. Current pain flare starts at left TMJ [...] she has a f/u appt with [facility] on 03/17/21 for potential [...] time. She got a call from [facility] and is scheduled for [...] with the scheduling the microvascular decompression at [facility] and requests referral elsewhere. She has not [...] the pain. She is following up at [facility] for ultrasound concerning leg swelling today. left [...] is scheduled for a surgical consult at [facility] for possible microscopic decompression surgery on 12/05/20.[facility] notes reviewed - pt started on Carbamezapine ER with improvement in pain. There was discussion of Rhizotomy of the trigeminal nerve. 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 Vasquez did not recommend surgical intervention.[facility] reviewed [...] result in trigeminal neuralgia. Her neurologist at [facility] confirmed and dx'ed the tumor through imaging. Her pain is triggered by light touch including wind and brushing her teeth. She has polyarthralgia with negative rheumatological work up. Per records, there is no clear dx for her facial pain. Currently working with dentist for TMJ s/s , she has been PT multiple times without improvement. She has seen a neurologist at [facility] without any better explanation of her facial pain. The neurologist ordered fascial PT at [facility] (starts 12/01/20) and referred her to [facility] for surgical consult. She has been in and out of the ER due to the uncontrolled pain.She reports secondary pain in her left hip which affects her gait. The pain is located on the outside and radiates towards the inside. [facility] [place] [facility] with no benefit. She is scheduled for an ultrasound of the hip edema next week.Referred by PCP.Treatment Tried:tegretolCarbamazepinegabapentinCymbalta percocet PRN - helpful but causes fatigue.tramadol 50mg BID - helpful but causes fatigue.[facility].Pt goal: [facility] to take over pain management. Functional Status Date Functional Assessmen t No Information Instructions Date Instruction Additional Infor mation No Information Assessments Type Assessment Date No Information Patient Care Teams Name Effective Dates (start - stop) Status Members No Information
--- OUTSIDE RECORDS SUMMARY | 2024-08-07 06:33 | XMS_ITS | Continuity of Care Document ---
Author Organization [facility] Address [address] [place] [id number] Care Team Providers Care Software Developer Intern Name Role Phone Prasanna Lan CRNA Unavailable Unavailable Procedures Procedure Date ANESTH, NERVE BLOCK/INJ ANESTH, HIP JOINT PROCEDURE Advance Directives Directive Yes / No Effective Date File Name No Information Encounters Encounter Description Practice Location Reason(s) For Visit Diagnoses Date Provider Providers Copied on Encounter [facility], [address] [place] [address], [id number], [facility] No Information 2 Riky Mims. [address] [place] [address], [id number] , . [phone] Referring Provider: [facility] [address], [place], [address]. tel:[phone] [facility], [address] [place] [address], [id number], [facility] No Information 2 Susan May. [address] [facility], [place], [place], [id number] , . [phone] Referring Provider: Sujit Menon [facility] [address], [place], [address]. tel:[phone] Family History Family Member Type Diagnosis Age At Onset No Information Payers Payer name Insurance type Covered green party ID Authoriza tion(s) Blue Cross [employer] [facility] [id number] Social History Type Description Quantity Date [...]
--- OUTSIDE RECORDS SUMMARY | 2024-08-07 06:33 | XMS_ITS | Continuity of Care Document ---
Author Organization [facility] Address [address] [place] [address] Phone Care Team Providers Care Acetylene Cylinder Packing Mixer Name Role Phone Raeann ECHEVARRIA, Jose Cruz [...] [facility], [address], [place], [address], [place] tel:[phone] [facility] , leg pain (chief complaint) Pain in leg, unspecified 0 Raeann Billingsley. [facility] [address], [place], [address], [place]. tel:[phone] Referring Provider: Jose Cruz Aguilar [facility] [address], [place], [address]. tel:[phone] Family History Family Member Type Diagnosis Age At Onset Problem No family history of Rheumat oid arthritis Payers Payer name Insurance type Covered constitution party ID Dee lovelace(s) [facility] [id number] Social History Type Description Quantity Date Captured [...]
--- OUTSIDE RECORDS SUMMARY | 2024-08-07 06:33 | XMS_ITS | Clinical Summary ---
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 Gender Identity Not on file Sexual Orientation [...] Billing Address Medication Therapy Self [address] [address] [place] Care Teams Light Equipment Operator Relationship Specialty Start Date End Date No Ref-Primary, Physician PCP - General 05/05/18 [place] [address] [place] [address] Family Practice 05/05/18 Omar Spicer MD [address] [facility] [id number] [place] [address] Neurological Surgery 11/18/20 Roger Moseley DDS [place] [facility] [address] [facility] [address] [place] [address] Referring Physician Dentist 11/18/20
--- OUTSIDE RECORDS SUMMARY | 2024-08-07 06:33 | XMS_ITS | Clinical Summary ---
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 Not on file Not on file Not [...] CDT) CHOLESTEROL,TOTAL 157 110 - 199 mg/dL [facility] TRIGLYCERIDES 129 40 - 149 mg/dL [facility] HDL CHOLESTEROL 42 >40 mg/dL [facility] CHOL/HDL RATIO 3.74 <4.51 [facility] LDL CHOLESTEROL 89 <131 mg/dL [facility] PATIENT STATUS Non-Fasti ng [facility] 10/26/2005 11:3 6 AM CDT 10/26/2005 11:36 AM CDT us Andrea Alvarenga MD CHEMISTRY Final Res ult [facility] INTERNAL ZIP [phone] [address] from Last 3 Months or Most Recently Relevant to Health Maintenance [place] [address] [place] [address] [facility] [employer] INS Advance Directives * Full Code (Latest Code Status on File) Date Activated Date Inactivated Comments 07/03/2006 10:54 AM 07/07/2006 5:54 PM * Full Code Date Activated Date Inactivated Comments 07/02/2006 11:24 PM 07/03/2006 10:54 AM * Full Code Date Activated Date Inactivated Comments 06/29/2006 2:38 AM 06/29/2006 9:55 PM Care Teams Offshore Wind Operations Manager Relationship Specialty Start Date End Date Denton Wang MD [address] [place] [address] PCP - General Family Practice 09/20/20
--- OUTSIDE RECORDS SUMMARY | 2024-08-07 06:33 | XMS_ITS | Encounter Summary ---
Author Organization [facility] Address [address] [facility] [place] [address] Care Team Providers Care Health Information Tech Name Role Phone Meghna Potter MD Primary Care P rovider No Ref-Primary, Physician Primary Care Provider Meghna Potter MD Unavailable Omar Spicer MD Unavailable [phone] Roger Moseley DDS Unavailable [phone] Omar Spicer MD Unavailable [phone] Encounter Details Date Type Department Care Team (Late st Contact Info) Description 08/31/2010 MyC Medical Advice Initial Department [facility] Social History Tobacco Use Types Packs/Day Years Used Date Smoking Tobacco: Never Comments:no second hand smok e Alcohol Use Standard Drinks/Week Comments Yes 0 (1 standard drink = 0.6 oz pur e alcohol) socialy Comments No Sex and Gender Information Value Date Recorded Sex Assigned at Not on file Legal Sex Female 4:57 AM 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 Gender Identity Not on file Sexual Orientation Not on file 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 on file documented as of this encounter Plan of Treatment Not on file documented as of this encounter Visit Diagnoses Not on filedocumented in this encounter Care Teams Health Information Tech Relationship Specialty [place] [address] [address] [phone] PCP - General Family Practice 08/26/09 05/04/18 No Ref-Primary, Physician PCP - General 05/05/18 [place] [address] [address] [id number] Family Practice 05/05/18 Omar Spicer MD [address] [address] Neurological Surgery 11/18/20 Roger Moseley DDS [facility] [address] [facility] [address] [place] [address] Referring Physician Dentist 11/18/20 Omar Spicer MD [address] [address] Assigned Neuroscience Provider 12/18/20 11/23/22 documented as of this encounter
[2024-08-07 06:35] VITALS: BP 112/74; PULSE 63; RESP 16; TEMP 36.6; O2SAT 98
--- NOTE | 2024-08-07 06:53 | ED.GENADULT ---
HPI - General Adult General Chief complaint: Dental/Oral/Mouth Injury/Pain Stated complaint: right side of face swelling Time Seen by Provider: 08/07/24 06:53 History of Present Illness HPI narrative: Patient is a 48-year-old woman with long history of trigeminal neurology a 0 comes in today with pain and swelling in the left side of her jaw. This is consistent with previous episodes of trigeminal neuralgia. She normally takes Tylenol but does not have any success tonight. He has had extensive evaluations for trigeminal neuralgia in the past with and x-rays had her teeth removed to try to help with her symptoms. No other complaints or concerns. No fevers no chills no signs of infection. Related Data Previous Rx's ?Medication ?Instructions ?Recorded duloxetine 30 mg capsule,delayed 30 mg PO BID #180 caps 06/09/24 release nortriptyline 50 mg capsule 50 mg PO QHS #90 caps 06/09/24 topiramate 25 mg tablet (Topamax) 25 mg PO QHS #30 tabs 06/09/24 cholecalciferol (vitamin D3) 1,250 1,250 mcg PO QWEEK #12 caps 06/10/24 mcg (50,000 unit) capsule carbamazepine 200 mg 200 mg PO BID PRN trigeminal 08/05/24 capsule,extended release [id number] neuralgia #30 caps oxycodone-acetaminophen 5 mg-325 1 tab PO TID PRN pain #20 tabs 08/05/24 mg tablet (Percocet) Allergies Allergy/AdvReac Type Severity Reaction Status Date / Time ibuprofen Allergy Mild unable to Verified 08/05/24 14:04 tolerate due to gastric bypass hx seasonal Allergy Mild sneezing, Uncoded 08/05/24 14:04 congestion Review of Systems Status of ROS: Reports: 10 or more systems reviewed and unremarkable except as noted in History and below [facility] Medical History Grief ?F43.21 - Adjustment disorder with depressed mood (ICD-10) History of temporomandibular joint disorder ?Z87.39 - Personal history of other diseases of the musculoskeletal system and connective tissue (ICD-10) History of anemia ?Z86.2 - Personal history of diseases of the blood and blood-forming organs and certain disorders involving the immune mechanism (ICD-10) Surgical History History of hysterectomy ?Z90.710 - Acquired absence of both cervix and uterus (ICD-10) History of gastric bypass ?Z98.84 - Bariatric surgery status (ICD-10) History of section ?Z98.891 - History of uterine scar from previous surgery (ICD-10) Family History Father Diabetes Leukemia Family/Other Heart disease Other Kidney disease Stroke Social History Narrative: nonsmoker What is your current living situation?: I presently have a place to live Problems where you live: no known problems In the past 12 months, utilities in danger of being shut off: no In past 12 months, lack of transportation kept you from medical appts, meetings, work, or getting things needed for daily living: no In the past 12 mos, have been you worried that your food would run out before you had money to buy more?: never true In the past 12 mos, the food you bought just didn't last and you didn't have money to buy more?: never true Smoking Status: Never smoker Do you use any of these nicotine containing products: None Second hand tobacco smoke exposure: No How often do you have a drink containing alcohol: monthly or less AUDIT-C Alcohol total score: 1 Non-prescribed substance use: denies use How often does anyone, including family, friends and others, physically hurt you: never How often does anyone, including family, friends and others, insult or talk down to you: never How often does anyone, including family, friends and others, threaten you with harm: never How often does anyone, including family, friends and others, scream or curse at you: never service: No Exam Narrative: Exam Narrative: EXAM GENERAL: Patient appears comfortable and well. Mild swelling noted left side of the jaw. EYES: No scleral icterus. ENT: Tympanic membranes and oropharynx normal. THYROID: no thyroid nodules or thyromegaly. LYMPH: No supraclavicular or cervical lymphadenopathy. SKIN: Visible skin seen during exam normal or with benign process only. EXT: No dependent lower extremity pedal edema. HEART: Regular rate and rhythm with no murmurs, rubs, or gallops. LUNGS: Clear to auscultation bilaterally with no crackles or wheezes. ABD: Soft, non tender, non distended. PSYCH: Good eye contact, speech is not pressured. Const: Vital Signs, click to edit/add: Vital Signs - 24 hr 08/07/24 06:35 Temperature 98 F Pulse Rate [Pulse Oximeter] 63 Respiratory Rate 16 Blood Pressure [Ri ght Upper Arm] 112/74 Pulse Oximetry 98 Oxygen Delivery Me thod Room Air Course Course ED Course: Patient seen and examined. I did treat her with 30 mg of Toradol and 5 days of prednisone 20 mg b.i.d.. She will continue current medication primary care follow-up as needed. Vital Signs Vital signs: Initial Vital Signs Temperature 98 F 08/07/24 06:35 Temperature Source Temporal Artery Scan 08/07/24 06:35 Pulse Rate 63 08/07/24 06:35 Respiratory Rate 16 08/07/24 06:35 Blood Pressure 112/74 08/07/24 06:35 Blood Pressure Mean 86 08/07/24 06:35 Blood Pressure Position Sitting 08/07/24 06:35 Pulse Oximetry 98 08/07/24 06:35 Oxygen Delivery Method Room Air 08/07/24 06:35 Vital Signs Temperature 98 F 08/07/24 06:35 Pulse Rate 63 08/07/24 06:35 Respiratory Rate 16 08/07/24 06:35 Blood Pressure 112/74 08/07/24 06:35 Pulse Oximetry 98 08/07/24 06:35 Oxygen Delivery Method Room Air 08/07/24 06:35 Temperature 98 F 08/07/24 06:35 Pulse Rate 63 08/07/24 06:35 Respiratory Rate 16 08/07/24 06:35 Blood Pressure 112/74 08/07/24 06:35 Pulse Oximetry 98 08/07/24 06:35 Oxygen Delivery Method Room Air 08/07/24 06:35 Medical Decision Making MDM Narrative Medical decision making narrative: As above. Discharge Plan Discharge Clinical Impression: Left-sided trigeminal neuralgia Patient Disposition: Home, Self-Care Condition: Stable Instructions: Trigeminal Neuralgia (ED) Additional Instructions: Prednisone as directed Continue current management. Follow-up with your doctor as needed. Activity Level: No Restrictions Discharge Diet: Regular Prescriptions: No Action duloxetine 30 mg capsule,delayed release(DR/EC) 30 mg PO BID Qty: 180 3RF nortriptyline 50 mg capsule 50 mg PO QHS Qty: 90 3RF topiramate [Topamax] 25 mg tablet 25 mg PO QHS Qty: 30 12RF carbamazepine 200 mg capsule, ER multiphase 12 hr 200 mg PO BID PRN (Reason: trigeminal neuralgia) Qty: 30 0RF oxycodone-acetaminophen [Percocet] 5-325 mg tablet 1 tab PO TID PRN (Reason: pain) Qty: 20 0RF cholecalciferol (vitamin D3) 1,250 mcg (50,000 unit) capsule 1,250 mcg PO QWEEK Qty: 12 0RF Follow Up/Referrals: Koki Fagan MD [Primary Care Provider] - [facility]
--- OUTSIDE RECORDS SUMMARY | 2024-08-07 06:55 | XMS_ITS | Continuity of Care Document ---
Author Organization [facility] Address [address] [address] Phone Care Team Providers Care Director Of Athletics Name Role Phone Will Omar ZEPEDA Unavailable [...] Active carbamazepine ER 300 mg capsule,extended release [id number] take 1 capsule by oral route every [...] Diagnoses Date Provider Providers Copied on Encounter [facility], [address] [place], [place], [id number] , [place] tel:[phone] [facility] [place] No Information Jose Nelson. [address] [place], [id number] , [place]. tel: [phone] OFFICE/OUTPA TIENT VISIT, [facility], [address] [place], [place], [id number] , [place] tel: [phone] [facility] [place] Facial Pain (chief complaint) Anxiety disorder, unspecifiedChronic migraine without aura, intractable, without status migrainosusTrigemi nal neuralgiaPain in right kneePain in left kneeUnspecified temporomandibular joint disorder, unspecified sideTrochanteric bursitis, left hipFatigueLong term (current) use of opiate analgesicOther intermodal owner operator truck driver (current) drug therapyChronic pain syndrome Aug- 2 Saunders Williams. [facility], [address], [place], [address], [place]. [phone] Referring Provider: [facility] [address], [place], [address]. tel:[phone] OFFICE/OUTPA TIENT VISIT, [facility], [address] [place], [place], [id number] , [place] tel: [phone] [facility] Facial pain (chief complaint) Unspecified temporomandibular joint disorder, unspecified sideTrochanteric bursitis, left hipLong term (current) use of opiate analgesicChronic pain syndromeChronic migraine without aura, intractable, without status migrainosusAnxiety disorder, unspecifiedOther intermodal owner operator truck driver (current) drug therapyPain in right kneePain in left kneeTrigeminal neuralgiaFatigue 2 Saunders Williams. [facility], [address], [place], [address], [place]. [phone] Referring Provider: [facility] [address], [place], [address]. [phone] [facility], [address] [place], [place], [id number] , [place] tel:[phone] [facility] Pain in right kneePain in left knee 2 Saunders Williams. [facility], [address], [place], [address], [place]. tel: [phone] Referring Provider: Denton Wang [facility] [address], [place], [address]. tel:[phone] [facility], [address] [place], [place], [id number] , [place] tel: [phone] [facility] Unspecified temporomandibular joint disorder, unspecified side 2 Saundersgrisel Kramer. [facility], [address], [place], [address], [place]. tel: [phone] Referring Provider: Denton Wang [facility] [address], [place], [address]. tel:[phone] OFFICE/OUTPA TIENT VISIT, [facility], [address] [place], [place], [id number] , [place] tel: [phone] [facility] Facial pain (chief complaint) Unspecified temporomandibular joint disorder, unspecified sideTrochanteric bursitis, left hipLong term (current) use of opiate analgesicChronic pain syndromeChronic migraine without aura, intractable, without status migrainosusAnxiety disorder, unspecifiedOther intermodal owner operator truck driver (current) drug therapyPain in right kneePain in left kneeTrigeminal neuralgia 2 Nyongesa Krupa. [address], [place], [place], [address] , [place]. tel: [phone] Referring Provider: Denton Wang [facility] [address], [place], [address]. tel:[phone] [facility], [address] [place] [address], [id number] , [place] tel: [phone] [facility] No Information 2 Nyongesa Krupa. [address], [place], [place], [id number] , [place]. tel: [phone] Referring Provider: Omar Ferrera, [address] [place], [address]. tel:[phone] OFFICE/OUTPA TIENT VISIT, [facility], [address] [place], [id number] , [place] tel:[phone] [facility] Facial pain (chief complaint) Unspecified temporomandibular joint disorder, unspecified sideTrochanteric bursitis, left hipLong term (current) use of opiate analgesicChronic pain syndromeChronic migraine without aura, intractable, without status migrainosusAnxiety disorder, unspecifiedOther intermodal owner operator truck driver (current) drug therapyPain in right kneePain in left kneeTrigeminal neuralgiaEncounter for therapeutic drug level monitoring 2 Heathersa Krupa. [address], [place], [id number] , [place]. tel:[phone] Referring Provider: Denton Wang [facility] [address], [place], [address]. [phone] [facility], [address] [place], [id number] , [place] tel:[phone] [facility] No Information 2 Nyaguilar Krupa. [address] [facility] [address], [place], [id number] , [place]. tel:[phone] OFFICE/OUTPA TIENT VISIT, [facility], [address] [place], [id number] , [place] tel:[phone] [facility] Facial pain (chief complaint) Unspecified temporomandibular joint disorder, unspecified sideTrochanteric bursitis, left hipLong term (current) use of opiate analgesicChronic pain syndromeChronic migraine without aura, intractable, without status migrainosusAnxiety disorder, unspecifiedOther intermodal owner operator truck driver (current) drug therapyPain in right kneePain in left kneeTrigeminal neuralgia 2 Nyongesa Krupa. [address] [facility] [address], [place], [id number] , [place]. tel:[phone] Referring Provider: Denton [facility] [address], [place], [address]. tel:[phone] [facility], [address] [place], [place], [id number] , [place] [phone] [facility] Unspecified temporomandibular joint disorder, unspecified side 2 Saunders Williams. [facility], [address], [place], [address], [place]. tel:[phone] Referring Provider: [facility] [address], [place], [address]. [phone] [facility], [address] [place] [address], [id number] , [place] [phone] [facility] Trochanteric bursitis, left hip 1 Saunders Williams. [facility], [address], [place], [address], [place]. tel:[phone] Referring Provider: [facility] [address], [place], [address]. [phone] [facility], [address] [place] [address], [id number] , [place] [phone] [facility] [place] No Information 1 Dorothy Gentile. [address] [place] [address] [address], [place], [place], [id number] , [place]. tel:[phone] OFFICE/OUTPA TIENT VISIT, [facility], [address] [place], [place], [id number] , [place] tel:[phone] [facility] [place] Facial pain (chief complaint) TMJ disorderLong term (current) use of opiate analgesicTrochante stephanie bursitis, left hipChronic pain syndromeAnxiety disorder, unspecifiedChronic migraine without aura, intractable, without status migrainosusTrigemi nal neuralgiaOther penitentiary (current) drug therapyPain in right kneePain in left kneeEncounter for therapeutic drug level monitoring 1 Dorothy Gentile. [address] [facility] [address], [place], [place], [id number] , [place]. tel: [phone] Referring Provider: Denton Wang [facility] [address], [place], [address]. tel:[phone] OFFICE/OUTPA TIENT VISIT, [facility], [address] [place], [place], [id number] , [place] tel: [phone] [facility] Facial pain (chief complaint) Trigeminal neuralgiaTMJ disorderLong term (current) use of opiate analgesicTrochante stephanie bursitis, left hipChronic pain syndromeFacial pain NOSAnxiety disorder, unspecifiedChronic migraine without aura, intractable, without status migrainosus 1 Chip Kramer. [facility], [address] [facility] [address], [place], [address], [place]. tel: [phone] Referring Provider: Denton Wang [facility] [address], [place], [address]. tel:[phone] [facility], [address] [place], [place], [id number] , [place] tel: [phone] [facility] Facial pain (chief complaint) Chronic migraine without aura, intractable, without status migrainosusTrigemi nal neuralgiaTMJ disorderLong term (current) use of opiate analgesicTrochante stephanie bursitis, left hipChronic pain syndromeFacial pain NOSAnxiety disorder, unspecifiedOther penitentiary (current) drug therapy 1 Dorothy Gentile. [address] [facility] [address], [place], [id number] , [place]. tel: [phone] Referring Provider: Denton Wang [facility] [address], [place], [address]. tel:[phone] OFFICE/OUTPA TIENT VISIT, [facility], [address] [place], [place], [id number] , [place] tel: [phone] [facility] Facial pain (chief complaint) Chronic migraine without aura, intractable, without status migrainosusTrigemi nal neuralgiaTMJ disorderLong term (current) use of opiate analgesicTrochante stephanie bursitis, left hipChronic pain syndromeFacial pain NOS 1 Dorothy Gentile. [address] [facility] [address], [place], [id number] , [place]. tel: [phone] Referring Provider: Denton Wang [facility] [address], [place], [address]. tel:[phone] [facility], [address] [place], [place], [id number] , [place] tel: [phone] [facility] Trochanteric bursitis, left hip 1 [facility] [place] [facility], [address] [facility] [address], [address], [place]. tel: [phone] Referring Provider: Denton Wang [facility] [address], [place], [address]. tel:[phone] OFFICE/OUTPA TIENT VISIT, [facility], [address] [place] [address], [id number] , [place] tel: [phone] [facility] Facial pain (chief complaint) Chronic migraine without aura, intractable, without status migrainosusTrigemi nal neuralgiaTMJ disorderLong term (current) use of opiate analgesicTrochante stephanie bursitis, left hipChronic pain syndromeFacial pain NOS 1 Dorothy Gentile. [address] [facility] [address], [place], [id number] , [place]. tel: [phone] Referring Provider: Denton Wang [facility] [address], [place], [address]. tel:[phone] OFFICE/OUTPA TIENT VISIT, [facility], [address] [place], [place], [address] , [place] tel: [phone] [facility] Facial pain (chief complaint) left hip pain (chief complaint) Chronic migraine without aura, intractable, without status migrainosusTrigemi nal neuralgiaTMJ disorderLong term (current) use of opiate analgesicTrochante stephanie bursitis, left hipChronic pain syndromeFacial pain NOS Arnaud-0 1 Dorothy Gentile. [address], [place], [id number] , [place]. tel:[phone] Referring Provider: [facility] [address], [place], [address]. tel:[phone] [facility], [address] [place] [address], [id number] , [place] tel:[phone] [facility] [place] No Information 1 Dorothy Gentile. [address], [place], [id number] , [place]. tel:[phone] Referring Provider: Omar Ferrera, [address] [place], [address]. tel:[phone] OFFICE/OUTPA TIENT VISIT, [facility], [address] [place], [place], [id number] , [place] tel:[phone] [facility] facial pain (chief complaint) Chronic pain syndromeEncounter for screening for other disorderFacial pain NOSTrigeminal neuralgiaTMJ disorderLong term (current) use of opiate analgesicEncounter for therapeutic drug level monitoringTrochant gely bursitis, left hipChronic migraine without aura, intractable, without status migrainosus 1 Dorothy Gentile. [address], [place], [id number] , [place]. tel:[phone] Referring Provider: [facility] [address], [place], [address]. tel:[phone] Family History Family Member Type Diagnosis Age At Onset Problem Family history of chronic pa in Payers Payer name Insurance type Covered green party ID Dee lovelace(s) [facility] [id number] Social History Type Description Quantity Date [...] Goal ALT (SGPT). Due on due Goal DOCUMENTATION COORDINATOR Paperwork. Due on due Goal UDT. Due on due Goal Order Annual PT. Due on due Goal OARS. Due on due Goal TAPE RECORDING MACHINE OPERATOR Scanned. Due on due Goal Update Social [...] due Goal Creatinine. Due on due Goal TAPE RECORDING MACHINE OPERATOR Scanned. Due on due Goal UDT. Due on due Goal DOCUMENTATION COORDINATOR Paperwork. Due on due Goal OARS. Due [...] due Goal Creatinine. Due on due Goal TAPE RECORDING MACHINE OPERATOR Scanned. Due on due Goal UDT. Due on due Goal DOCUMENTATION COORDINATOR Paperwork. Due on due Goal OARS. Due [...] due Goal Creatinine. Due on due Goal TAPE RECORDING MACHINE OPERATOR Scanned. Due on due Goal UDT. Due on due Goal DOCUMENTATION COORDINATOR Paperwork. Due on due Goal OARS. Due [...] due Goal Creatinine. Due on due Goal TAPE RECORDING MACHINE OPERATOR Scanned. Due on due Goal UDT. Due on due Goal DOCUMENTATION COORDINATOR Paperwork. Due on due Goal OARS. Due [...] due Goal Creatinine. Due on due Goal TAPE RECORDING MACHINE OPERATOR Scanned. Due on due Goal UDT. Due on due Goal DOCUMENTATION COORDINATOR Paperwork. Due on due Goal OARS. Due [...] due Goal Creatinine. Due on due Goal TAPE RECORDING MACHINE OPERATOR Scanned. Due on due Goal UDT. Due on due Goal DOCUMENTATION COORDINATOR Paperwork. Due on due Goal OARS. Due [...] due Goal Creatinine. Due on due Goal TAPE RECORDING MACHINE OPERATOR Scanned. Due on due Goal UDT. Due on due Goal DOCUMENTATION COORDINATOR Paperwork. Due on due Goal OARS. Due [...] due Goal Creatinine. Due on due Goal TAPE RECORDING MACHINE OPERATOR Scanned. Due on due Goal UDT. Due on due Goal DOCUMENTATION COORDINATOR Paperwork. Due on due Goal OARS. Due [...] due Goal Creatinine. Due on due Goal TAPE RECORDING MACHINE OPERATOR Scanned. Due on due Goal UDT. Due on due Goal DOCUMENTATION COORDINATOR Paperwork. Due on due Goal OARS. Due on due Goal ALT (SGPT). Due on due Goal Order Annual PT. Due on due Goal Weight. Due on d ue Goal AST (SGOT). Due on due Goal Creatinine. Due on due Goal TAPE RECORDING MACHINE OPERATOR Scanned. Due on due Goal UDT. Due on due Goal DOCUMENTATION COORDINATOR Paperwork. Due on due Goal OARS. Due [...] due Goal Creatinine. Due on due Goal TAPE RECORDING MACHINE OPERATOR Scanned. Due on due Goal UDT. Due on due Goal DOCUMENTATION COORDINATOR Paperwork. Due on due Goal OARS. Due [...] due Goal Creatinine. Due on due Goal TAPE RECORDING MACHINE OPERATOR Scanned. Due on due Goal UDT. Due on due Goal DOCUMENTATION COORDINATOR Paperwork. Due on due Goal OARS. Due [...] due Goal Creatinine. Due on due Goal TAPE RECORDING MACHINE OPERATOR Scanned. Due on due Goal UDT. Due on due Goal DOCUMENTATION COORDINATOR Paperwork. Due on due Goal OARS. Due [...] due Goal Creatinine. Due on due Goal TAPE RECORDING MACHINE OPERATOR Scanned. Due on due Goal UDT. Due on due Goal DOCUMENTATION COORDINATOR Paperwork. Due on due Goal OARS. Due [...] due Goal Creatinine. Due on due Goal TAPE RECORDING MACHINE OPERATOR Scanned. Due on due Goal UDT. Due on due Goal DOCUMENTATION COORDINATOR Paperwork. Due on due Goal OARS. Due [...] starting to hurt again.She was referred to [facility] but did not want to [...] and progressively worsening. Blood work done at [facility] yesterday shows everything is fine per [...] states she takes Lasix for this. At [facility] she stated she has not received a [...] for trigeminal neuralgia was not recommended by [facility].She states that she would only be comfortable seeing an -French therapist.She is scheduled for a Left GT [...] for trigeminal neuralgia was not recommended by [facility]. Current pain flare starts at left TMJ [...] reports she has a f/u appt with [facility] on 03/17/21 for potential injections.Reports current medication [...] this time. She got a call from [facility] and is scheduled for trigeminal nerve block [...] with the scheduling the microvascular decompression at [facility] and requests referral elsewhere. She has [...] the pain. She is following up at [facility] for ultrasound concerning leg swelling today. left hip pain Duration chronic . Location of pain is left. Pertinent negatives include fever. Facial pain (comments) Leilani ferirs s here for a followup after initial consult. Facial pain persists. She is scheduled for a surgical consult at [facility] for possible microscopic decompression surgery on 12/05/20.[facility] notes reviewed - pt started on Carbamezapine ER with improvement in pain. There was discussion of Rhizotomy of the trigeminal nerve. 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 Vasquez did not recommend surgical intervention.[facility] notes reviewed [...] result in trigeminal neuralgia. Her neurologist at [facility] confirmed and dx'ed the tumor through imaging. Her pain is triggered by light touch including wind and brushing her teeth. She has polyarthralgia with negative rheumatological work up. Per records, there is no clear dx for her facial pain. Currently working with dentist for TMJ s/s , she has been PT multiple times without improvement. She has seen a neurologist at [facility] without any better explanation of her facial pain. The neurologist ordered fascial PT at [facility] (starts 12/01/20) and referred her to [facility] for surgical consult. She has been in and out of the ER due to the uncontrolled pain.She reports secondary pain in her left hip which affects her gait. The pain is located on the outside and radiates towards the inside. She has tried PT at [facility] in [place] for the hip with no benefit. She is scheduled for an ultrasound of the hip edema next week.Referred by PCP.Treatment Tried:tegretolCarbamazepinegabapentinCymbalta percocet PRN - helpful but causes fatigue.tramadol 50mg BID - helpful but causes fatigue.[facility]Pt goal: [facility] to take over [...]
--- OUTSIDE RECORDS SUMMARY | 2024-08-07 06:55 | XMS_ITS | Continuity of Care Document ---
Author Organization [facility] Address [address] [place] [address] Phone Care Team Providers Care Cotton Feeder Name Role Phone [facility] [...] Diagnoses Date Provider Providers Copied on Encounter [facility], [address] [place] [address], [id number], tel:[phone] [place] [address] No Information 2 [facility]. [address] [place] [address], [id number], [place]. tel:[phone] Referring Provider: Williams Saunders [address], [place], [address]. tel:[phone] [facility], [address] [place] [address], [id number], tel:[phone] [place] [address] No Information 2 [facility]. [address] [place] [address], [id number], . tel:[phone] Referring Provider: Williams Saunders [employer] [address], [place], [address]. tel:[phone] [facility], [address] [place] [address], [id number], tel:[phone] [place] [address] No Information [facility]. [address] [place] [address], [id number], . tel:[phone] Referring Provider: Williams Saunders [facility] [address] [facility] [address], [place], [address]. tel:[phone] [facility], [address] [place] [address], [id number], tel:[phone] [place] [address] No Information [facility]. [address] [place] [address], [id number], . tel:[phone] Referring Provider: Williams Saunders [facility] [address], [place], [address]. tel:[phone] [facility], [address] [place] [address], [id number], tel:[phone] [place] [address] No Information [facility]. [address] [place] [address], [id number], . tel:[phone] Referring Provider: Williams Saunders [employer] [address] [facility] [address], [place], [address]. tel:[phone] Family History Family Member Type Diagnosis Age At Onset No Information Payers Payer name Insurance type Covered alliance party ID Authoriza timiller(s) [facility] [id number] Social History Type Description Quantity Date [...]
--- OUTSIDE RECORDS SUMMARY | 2024-08-07 06:55 | XMS_ITS | Encounter Summary ---
Author Organization [facility] Address [address] [place] [address] Care Team Providers Care Pole Incisor Operator Name Role Phone Meghna Potter MD Primary Care P rovider No Ref-Primary, Physician Primary Care Provider Meghna Potter MD Unavailable Omar Spicer MD Unavailable Roger Moseley DDS Unavailable [phone] Omar Spicer MD Unavailable [phone] Reason for Visit * Reason Onset Date Comments Results 04/12/2010 labs Encounter Details Date Type Department Care Team (Late st Contact Info) Description 04/12/2010 Telephone [facility] [address] [address] Julia Arshad MD XXX RESIGNED XXX [address] [place] [address] Results (labs ) Social History Tobacco Use Types Packs/Day Years Used Date Smoking Tobacco: Never Comments:no second hand smok e Alcohol Use Standard Drinks/Week Comments Yes 0 (1 standard drink = 0.6 oz pur e alcohol) socialy Comments No Sex and Gender Information Value Date Recorded Sex Assigned at Not on file 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 Gender Identity Not on file Sexual Orientation [...] on filedocumented in this encounter Care Teams Pole Incisor Operator Relationship Specialty [place] [address] [place] [id number] PCP - General Family Practice 08/26/09 05/04/18 No Ref-Primary, Physician PCP - General 05/05/18 [place] [address] [address] [phone] Family Practice 05/05/18 Omar Spicer MD [address] [facility] [id number] [place] [address] Neurological Surgery 11/18/20 Roger Moseley DDS [place] [facility] [address] [facility] [address] [place] [address] Referring Physician Dentist 11/18/20 Omar Spicer MD [address] [facility] [id number] [place] [address] Assigned Neuroscience Provider 12/18/20 11/23/22 documented as of this encounter
--- OUTSIDE RECORDS SUMMARY | 2024-08-07 06:55 | XMS_ITS | Clinical Summary ---
Author Organization [facility] Address [place], [place] [address] Care Team Providers Care Fast Food Supervisor Name Role Phone Denton Wang MD Primary Care Provider [phone] Allergies Active Allergy Reactions Criticality Noted Date [...] Neuritis 09/02/2018 10/10/2022 Seasonal allergic rhinitis 08/27/201810/10 [place] anemia 04/15/2014 10/10/2022 Other specified postprocedural states [...] on file Legal Sex Female 6:05 AM HIGH ENERGY FORMING EQUIPMENT OPERATOR Gender Identity Not on file Sexual Orientation [...] CDT) CHOLESTEROL,TOTAL 157 110 - 199 mg/dL [facility] TRIGLYCERIDES 129 40 - 149 mg/dL [facility] HDL CHOLESTEROL 42 >40 mg/dL [facility] CHOL/HDL RATIO 3.74 <4.51 [facility] LDL CHOLESTEROL 89 <131 mg/dL [facility] PATIENT STATUS Non-Fasti ng [facility] 10/26/2005 11:3 6 AM CDT 10/26/2005 11:36 AM CDT us Andrea Alvarenga MD CHEMISTRY Final Res ult [facility] INTERNAL ZIP [id number] [address] from Last 3 Months or Most Recently Relevant to Health Maintenance [place] [place] [address] [facility] [employer] VE[employer] INS Advance Directives * Full Code (Latest Code Status on File) Date Activated Date Inactivated Comments 07/03/2006 10:54 AM 07/07/2006 5:54 PM * Full Code Date Activated Date Inactivated Comments 07/02/2006 11:24 PM 07/03/2006 10:54 AM * Full Code Date Activated Date Inactivated Comments 06/29/2006 2:38 AM 06/29/2006 9:55 PM Care Teams Fast Food Supervisor Relationship Specialty Start Date End Date Denton Wang MD [address] [place] [address] PCP - General Family Practice 09/20/20
--- OUTSIDE RECORDS SUMMARY | 2024-08-07 06:55 | XMS_ITS | Encounter Summary ---
Author Organization [facility] Address [address] [facility] [place] [address] Care Team Providers Care Finish Mixer Name Role Phone Meghna Potter MD Primary Care P rovider No Ref-Primary, Physician Primary Care Provider Meghna Potter MD Unavailable Omar Spicer MD Unavailable [phone] Roger Moseley DDS Unavailable [phone] Omar Spicer MD Unavailable [phone] Encounter Details Date Type Department Care Team (Late st Contact Info) Description 08/31/2010 MyC Medical Advice Initial Department [facility] Social History Tobacco Use Types Packs/Day Years Used Date Smoking Tobacco: Never Comments:no second hand smok e Alcohol Use Standard Drinks/Week Comments Yes 0 (1 standard drink = 0.6 oz pur e alcohol) socialy Comments No Sex and Gender Information Value Date Recorded Sex Assigned at Not on file Legal Sex Female 4:57 AM MERCHANDISE APPRAISER Gender Identity Not on file Sexual Orientation Not on file 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 on file documented as of this encounter Plan of Treatment Not on file documented as of this encounter Visit Diagnoses Not on filedocumented in this encounter Care Teams Finish Mixer Relationship Specialty [place] [address] [address] [address] PCP - General Family Practice 08/26/09 05/04/18 No Ref-Primary, Physician PCP - General 05/05/18 [place] [address] [address] [phone] Family Practice 05/05/18 Omar Spicer MD [address] [address] Neurological Surgery 11/18/20 Roger Moseley DDS [facility] [address] [facility] 200 [place] [address] Referring Physician Dentist 11/18/20 Omar Spicer MD [address] [address] Assigned Neuroscience Provider 12/18/20 11/23/22 documented as of this encounter
--- OUTSIDE RECORDS SUMMARY | 2024-08-07 06:55 | XMS_ITS | Clinical Summary ---
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 Gender Identity Not on file Sexual Orientation [...] Treatment Not on file [place] * Guarantor: Leilani Lundy Account Type Relation to Patient Date of Phone Billing Address Medication Therapy Self [address] [phone] [place] Care Teams Distance Education Faculty Liaison Relationship Specialty Start Date End Date No Ref-Primary, Physician PCP - General 05/05/18 [place] [address] [place] [address] Family Practice 05/05/18 Omar Spicer MD [address] [facility] [id number] [place] [address] Neurological Surgery 11/18/20 Roger Moseley DDS [place] [facility] [address] [facility] 200 [place] [address] Referring Physician Dentist 11/18/20
--- OUTSIDE RECORDS SUMMARY | 2024-08-07 06:55 | XMS_ITS | Continuity of Care Document ---
Author Organization [facility] Address [address] [place] [address] Phone Care Team Providers Care Cms Expert Name Role Phone Raeann ECHEVARRIA, Jose Cruz [...] [facility], [address], [place], [address], [place] tel:[phone] [facility] , leg pain (chief complaint) Pain in leg, unspecified 0 Raeann Billingsley. [facility] [address], [place], [address], [place]. tel:[phone] Referring Provider: Jose Cruz Aguilar [facility] [address], [place], [address]. tel:[phone] Family History Family Member Type Diagnosis Age At Onset Problem No family history of Rheumat oid arthritis Payers Payer name Insurance type Covered libertarian ID Dee lovelace(s) [facility] [id number] Social History Type Description Quantity Date Captured [...]
--- OUTSIDE RECORDS SUMMARY | 2024-08-07 06:56 | XMS_ITS | Continuity of Care Document ---
Author Organization [facility] Address [address] [place] [address] Care Team Providers Care Heel Blacker Name Role Phone Prasanna Lan CRNA Unavailable Unavailable Procedures Procedure Date ANESTH, NERVE BLOCK/INJ ANESTH, HIP JOINT PROCEDURE Advance Directives Directive Yes / No Effective Date File Name No Information Encounters Encounter Description Practice Location Reason(s) For Visit Diagnoses Date Provider Providers Copied on Encounter [facility], [address] [place] [address], [id number], [facility] No Information 2 Riky Mims. [address] [place] [address], [id number] , . tel:[phone] Referring Provider: [facility] [address], [place], [address]. tel:[phone] [facility], [address] [place] [address], [id number], [facility] No Information 2 Susan May. [address] [facility], [place], [place], [id number] , . [phone] Referring Provider: Sujit Menon [facility] [address], [place], [address]. tel:[phone] Family History Family Member Type Diagnosis Age At Onset No Information Payers Payer name Insurance type Covered green party ID Authoriza tion(s) Blue Cross Blue Shield Of [facility] [id number] Social History Type Description Quantity Date [...]
--- OUTSIDE RECORDS SUMMARY | 2024-08-07 06:56 | XMS_ITS | Encounter Summary ---
Author Organization [facility] Address [address] [place] [address] Care Team Providers Care Line Clearance Foreman Name Role Phone Meghna Potter MD Primary Care P rovider No Ref-Primary, Physician Primary Care Provider Meghna Potter MD Unavailable Omar Spicer MD Unavailable Roger Moseley DDS Unavailable [phone] Omar Spicer MD Unavailable Reason for Visit * Reason Onset Date Comments Medication Request 03/19/2011 Encounter Details Date Type Department Care Team (Late st Contact Info) Description 03/19/[address] [address] Aminata Singh PA-C [facility] [address] [address] Medication Request Social History Tobacco Use Types Packs/Day Years Used Date Smoking Tobacco: Never Smokeless Tobacco: Never Comments:no second hand smok e Alcohol Use Standard Drinks/Week Comments Yes 0 (1 standard drink = 0.6 oz pur e alcohol) socialy Comments No Sex and Gender Information Value Date Recorded Sex Assigned at Not on file 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 [facility] - didn' have # Thank you documented in this encounter Plan of Treatment Not on file documented as of this encounter Visit Diagnoses Diagnosis BV (bacterial vaginosis)- Primary Vaginitis and vulvovaginitis, unspecified documented in this encounter Care Teams Line Clearance Foreman Relationship Specialty [place] [address] [address] [phone] PCP - General Family Practice 08/26/09 05/04/18 No Ref-Primary, Physician PCP - General 05/05/18 [place] [address] [address] [address] Family Practice 05/05/18 Omar Spicer MD [address] [place] [id number] [place] [address] Neurological Surgery 11/18/20 Roger Moseley DDS [place] [facility] [address] [facility] 200 [place] [address] Referring Physician Dentist 11/18/20 Omar Spicer MD 909 [facility] [id number] [place] [address] Assigned Neuroscience Provider 12/18/20 11/23/22 documented as of this encounter
[2024-08-07] MEDS: KETOROLAC 30 MG/ML inj IM (06:58)
--- OUTSIDE RECORDS SUMMARY | 2024-08-11 08:13 | XMS_ITS | Continuity of Care Document ---
Author Organization [facility] Address [address] [place] [address] Phone Care Team Providers Care Household Appliance Assembler Name Role Phone Will Omar ZEPEDA Unavailable [...] Active carbamazepine ER 300 mg capsule,extended release [id number] take 1 capsule by oral route every [...] Diagnoses Date Provider Providers Copied on Encounter [facility], [address] [place], [place], [id number] , [place] tel:[phone] [facility] [place] No Information Jose Nelson. [address] [place], [place], [id number] , [place]. tel: [phone] OFFICE/OUTPA TIENT VISIT, [facility], [address] [place], [place], [id number] , [place] tel: [phone] [facility] [place] Facial Pain (chief complaint) Anxiety disorder, unspecifiedChronic migraine without aura, intractable, without status migrainosusTrigemi nal neuralgiaPain in right kneePain in left kneeUnspecified temporomandibular joint disorder, unspecified sideTrochanteric bursitis, left hipFatigueLong term (current) use of opiate analgesicOther terminal gauger supervisor (current) drug therapyChronic pain syndrome Aug- 2 Saunders Williams. [employer], [address], [place], [address], [place]. tel:[phone] Referring Provider: [facility] [address], [place], [address]. tel:[phone] OFFICE/OUTPA TIENT VISIT, [facility], [address] [place], [place], [id number] , [place] tel: [phone] [facility] Facial pain (chief complaint) Unspecified temporomandibular joint disorder, unspecified sideTrochanteric bursitis, left hipLong term (current) use of opiate analgesicChronic pain syndromeChronic migraine without aura, intractable, without status migrainosusAnxiety disorder, unspecifiedOther terminal gauger supervisor (current) drug therapyPain in right kneePain in left kneeTrigeminal neuralgiaFatigue 2 Saunders Williams. [employer], [address], [place], [address], [place]. [phone] Referring Provider: [facility] [address], [place], [address]. [phone] [facility], [address] [place], [place], [id number] , [place] tel:[phone] [facility] Pain in right kneePain in left knee 2 Saunders Williams. [facility], [address], [place], [address], [place]. tel: [phone] Referring Provider: Denton Wang [facility] [address], [place], [address]. tel:[phone] [facility], [address] [place], [place], [id number] , [place] tel: [phone] [facility] Unspecified temporomandibular joint disorder, unspecified side 2 Saundersgrisel Kramer. [facility], [address], [place], [address], [place]. tel: [phone] Referring Provider: Denton Wang [facility] [address], [place], [address]. tel:[phone] OFFICE/OUTPA TIENT VISIT, [facility], [address] [place], [place], [id number] , [place] tel: [phone] [facility] Facial pain (chief complaint) Unspecified temporomandibular joint disorder, unspecified sideTrochanteric bursitis, left hipLong term (current) use of opiate analgesicChronic pain syndromeChronic migraine without aura, intractable, without status migrainosusAnxiety disorder, unspecifiedOther terminal gauger supervisor (current) drug therapyPain in right kneePain in left kneeTrigeminal neuralgia 2 Nyongesa Krupa. [address], [place], [place], [id number] , [place]. tel: [phone] Referring Provider: Denton Wang [facility] [address], [place], [address]. tel:[phone] [facility], [address] [place] [address], [id number] , [place] tel: [phone] [facility] No Information 2 Nyongesa Krupa. [address], [place], [place], [id number] , [place]. tel: [phone] Referring Provider: Omar Ferrera, [address] [place], [address]. tel:[phone] OFFICE/OUTPA TIENT VISIT, [facility], [address] [place], [place], [id number] , [place] tel:[phone] [facility] Facial pain (chief complaint) Unspecified temporomandibular joint disorder, unspecified sideTrochanteric bursitis, left hipLong term (current) use of opiate analgesicChronic pain syndromeChronic migraine without aura, intractable, without status migrainosusAnxiety disorder, unspecifiedOther terminal gauger supervisor (current) drug therapyPain in right kneePain in left kneeTrigeminal neuralgiaEncounter for therapeutic drug level monitoring 2 Heathersa Krupa. [address], [place], [id number] , [place]. tel:[phone] Referring Provider: Denton Wang [facility] [address], [place], [address]. [phone] [facility], [address] [place], [id number] , [place] tel:[phone] [facility] No Information 2 Nyaguilar Krupa. [address] [facility] [address], [place], [id number] , [place]. tel:[phone] OFFICE/OUTPA TIENT VISIT, [facility], [address] [place], [id number] , [place] tel:[phone] [facility] Facial pain (chief complaint) Unspecified temporomandibular joint disorder, unspecified sideTrochanteric bursitis, left hipLong term (current) use of opiate analgesicChronic pain syndromeChronic migraine without aura, intractable, without status migrainosusAnxiety disorder, unspecifiedOther terminal gauger supervisor (current) drug therapyPain in right kneePain in left kneeTrigeminal neuralgia 2 Nyongesa Krupa. [address] [facility] [address], [place], [id number] , [place]. tel:[phone] Referring Provider: Denton [facility] [address], [place], [address]. tel:[phone] [facility], [address] [place], [place], [id number] , [place] [phone] [facility] Unspecified temporomandibular joint disorder, unspecified side 2 Saunders Williams. [facility], [address], [place], [address], [place]. tel:[phone] Referring Provider: [facility] [address], [place], [address]. [phone] [facility], [address] [place] [address], [id number] , [place] [phone] [facility] Trochanteric bursitis, left hip 1 Saunders Williams. [facility], [address], [place], [address], [place]. tel:[phone] Referring Provider: [facility] [address], [place], [address]. [phone] [facility], [address] [place] [address], [id number] , [place] [phone] [facility] [place] No Information 1 Dorothy Gentile. [address] [place] [address] [address], [place], [place], [id number] , [place]. tel:[phone] OFFICE/OUTPA TIENT VISIT, [facility], [address] [place], [place], [id number] , [place] tel:[phone] [facility] [place] Facial pain (chief complaint) TMJ disorderLong term (current) use of opiate analgesicTrochante stephanie bursitis, left hipChronic pain syndromeAnxiety disorder, unspecifiedChronic migraine without aura, intractable, without status migrainosusTrigemi nal neuralgiaOther care home (current) drug therapyPain in right kneePain in left kneeEncounter for therapeutic drug level monitoring 1 Dorothy Gentile. [address] [facility] [address], [place], [place], [id number] , [place]. tel: [phone] Referring Provider: Denton Wang [facility] [address], [place], [address]. tel:[phone] OFFICE/OUTPA TIENT VISIT, [facility], [address] [place], [place], [id number] , [place] tel: [phone] [facility] Facial pain (chief complaint) Trigeminal neuralgiaTMJ disorderLong term (current) use of opiate analgesicTrochante stephanie bursitis, left hipChronic pain syndromeFacial pain NOSAnxiety disorder, unspecifiedChronic migraine without aura, intractable, without status migrainosus 1 Chip Kramer. [facility], [address], [place], [address], [place]. tel: [phone] Referring Provider: Denton Wang [facility] [address], [place], [address]. tel:[phone] [facility], [address] [place], [place], [id number] , [place] tel: [phone] [facility] Facial pain (chief complaint) Chronic migraine without aura, intractable, without status migrainosusTrigemi nal neuralgiaTMJ disorderLong term (current) use of opiate analgesicTrochante stephanie bursitis, left hipChronic pain syndromeFacial pain NOSAnxiety disorder, unspecifiedOther care home (current) drug therapy 1 Dorothy Gentile. [address] [facility] [address], [place], [place], [id number] , [place]. tel: [phone] Referring Provider: Denton Wang [facility] [address], [place], [address]. tel:[phone] OFFICE/OUTPA TIENT VISIT, [facility], [address] [place], [place], [id number] , [place] tel: [phone] [facility] Facial pain (chief complaint) Chronic migraine without aura, intractable, without status migrainosusTrigemi nal neuralgiaTMJ disorderLong term (current) use of opiate analgesicTrochante stephanie bursitis, left hipChronic pain syndromeFacial pain NOS 1 Dorothy Gentile. [address] [facility] [address], [place], [id number] , [place]. tel: [phone] Referring Provider: Denton Wang [facility] [address], [place], [address]. tel:[phone] [facility], [address] [place], [place], [id number] , [place] tel: [phone] [facility] Trochanteric bursitis, left hip 1 [facility], [address], [place], [address], [place]. tel: [phone] Referring Provider: Denton Wang [facility] [address], [place], [address]. tel:[phone] OFFICE/OUTPA TIENT VISIT, [facility], [address] [place] [address], [id number] , [place] tel: [phone] [facility] Facial pain (chief complaint) Chronic migraine without aura, intractable, without status migrainosusTrigemi nal neuralgiaTMJ disorderLong term (current) use of opiate analgesicTrochante stephanie bursitis, left hipChronic pain syndromeFacial pain NOS 1 Dorothy Gentile. [address] [facility] [address], [place], [id number] , [place]. tel: [phone] Referring Provider: Denton Wang [facility] [address], [place], [address]. tel:[phone] OFFICE/OUTPA TIENT VISIT, [facility], [address] [place], [place], [id number] , [place] tel: [phone] [facility] Facial pain (chief complaint) left hip pain (chief complaint) Chronic migraine without aura, intractable, without status migrainosusTrigemi nal neuralgiaTMJ disorderLong term (current) use of opiate analgesicTrochante stephanie bursitis, left hipChronic pain syndromeFacial pain NOS Arnaud-0 1 Dorothy Gentile. [address], [place], [id number] , [place]. tel:[phone] Referring Provider: [facility] [address], [place], [address]. tel:[phone] [facility], [address] [place] [address], [id number] , [place] tel:[phone] [facility] [place] No Information 1 Dorothy Gentile. [address], [place], [id number] , [place]. tel:[phone] Referring Provider: Omar Ferrera, [address] [place], [address]. tel:[phone] OFFICE/OUTPA TIENT VISIT, [facility], [address] [place], [place], [id number] , [place] tel:[phone] [facility] facial pain (chief complaint) Chronic pain syndromeEncounter for screening for other disorderFacial pain NOSTrigeminal neuralgiaTMJ disorderLong term (current) use of opiate analgesicEncounter for therapeutic drug level monitoringTrochant gely bursitis, left hipChronic migraine without aura, intractable, without status migrainosus 1 Dorothy Gentile. [address], [place], [id number] , [place]. tel:[phone] Referring Provider: [facility] [address], [place], [address]. tel:[phone] Family History Family Member Type Diagnosis Age At Onset Problem Family history of chronic pa in Payers Payer name Insurance type Covered democrat ID Dee lovelace(s) [facility] [id number] Social History Type Description Quantity Date [...] Goal ALT (SGPT). Due on due Goal TRAVEL PTA Paperwork. Due on due Goal UDT. Due on due Goal Order Annual PT. Due on due Goal OARS. Due on due Goal BAG SHOP WORKER Scanned. Due on due Goal Update Social [...] due Goal Creatinine. Due on due Goal BAG SHOP WORKER Scanned. Due on due Goal UDT. Due on due Goal TRAVEL PTA Paperwork. Due on due Goal OARS. Due [...] due Goal Creatinine. Due on due Goal BAG SHOP WORKER Scanned. Due on due Goal UDT. Due on due Goal TRAVEL PTA Paperwork. Due on due Goal OARS. Due [...] due Goal Creatinine. Due on due Goal BAG SHOP WORKER Scanned. Due on due Goal UDT. Due on due Goal TRAVEL PTA Paperwork. Due on due Goal OARS. Due [...] due Goal Creatinine. Due on due Goal BAG SHOP WORKER Scanned. Due on due Goal UDT. Due on due Goal TRAVEL PTA Paperwork. Due on due Goal OARS. Due [...] due Goal Creatinine. Due on due Goal BAG SHOP WORKER Scanned. Due on due Goal UDT. Due on due Goal TRAVEL PTA Paperwork. Due on due Goal OARS. Due [...] due Goal Creatinine. Due on due Goal BAG SHOP WORKER Scanned. Due on due Goal UDT. Due on due Goal TRAVEL PTA Paperwork. Due on due Goal OARS. Due [...] due Goal Creatinine. Due on due Goal BAG SHOP WORKER Scanned. Due on due Goal UDT. Due on due Goal TRAVEL PTA Paperwork. Due on due Goal OARS. Due [...] due Goal Creatinine. Due on due Goal BAG SHOP WORKER Scanned. Due on due Goal UDT. Due on due Goal TRAVEL PTA Paperwork. Due on due Goal OARS. Due [...] due Goal Creatinine. Due on due Goal BAG SHOP WORKER Scanned. Due on due Goal UDT. Due on due Goal TRAVEL PTA Paperwork. Due on due Goal OARS. Due on due Goal ALT (SGPT). Due on due Goal Order Annual PT. Due on due Goal Weight. Due on d ue Goal AST (SGOT). Due on due Goal Creatinine. Due on due Goal BAG SHOP WORKER Scanned. Due on due Goal UDT. Due on due Goal TRAVEL PTA Paperwork. Due on due Goal OARS. Due [...] due Goal Creatinine. Due on due Goal BAG SHOP WORKER Scanned. Due on due Goal UDT. Due on due Goal TRAVEL PTA Paperwork. Due on due Goal OARS. Due [...] due Goal Creatinine. Due on due Goal BAG SHOP WORKER Scanned. Due on due Goal UDT. Due on due Goal TRAVEL PTA Paperwork. Due on due Goal OARS. Due [...] due Goal Creatinine. Due on due Goal BAG SHOP WORKER Scanned. Due on due Goal UDT. Due on due Goal TRAVEL PTA Paperwork. Due on due Goal OARS. Due [...] due Goal Creatinine. Due on due Goal BAG SHOP WORKER Scanned. Due on due Goal UDT. Due on due Goal TRAVEL PTA Paperwork. Due on due Goal OARS. Due [...] due Goal Creatinine. Due on due Goal BAG SHOP WORKER Scanned. Due on due Goal UDT. Due on due Goal TRAVEL PTA Paperwork. Due on due Goal OARS. Due [...] starting to hurt again.She was referred to [facility] but did not want to [...] and progressively worsening. Blood work done at [facility] yesterday shows everything is fine per [...] states she takes Lasix for this. At [facility] she stated she has not received a [...] for trigeminal neuralgia was not recommended by [place].She states that she would only be comfortable seeing an -[place] therapist.She is scheduled for a Left GT [...] for trigeminal neuralgia was not recommended by [place]. Current pain flare starts at left TMJ [...] reports she has a f/u appt with [facility] on 03/17/21 for potential injections.Reports current medication [...] this time. She got a call from [facility] and is scheduled for trigeminal nerve block [...] with the scheduling the microvascular decompression at [facility] and requests referral elsewhere. She [...] the pain. She is following up at [facility] for ultrasound concerning leg swelling today. left hip pain Duration chronic . Location of pain is left. Pertinent negatives include fever. Facial pain (comments) Leilani ferris s here for a followup after initial consult. Facial pain persists. She is scheduled for a surgical consult at [facility] for possible microscopic decompression surgery on 12/05/20.[facility] notes reviewed - pt started on Carbamezapine ER with improvement in pain. There was discussion of Rhizotomy of the trigeminal nerve. 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 Vasquez did not recommend surgical intervention.[facility] reviewed [...] result in trigeminal neuralgia. Her neurologist at [facility] confirmed and dx'ed the tumor through imaging. Her pain is triggered by light touch including wind and brushing her teeth. She has polyarthralgia with negative rheumatological work up. Per records, there is no clear dx for her facial pain. Currently working with dentist for TMJ s/s , she has been PT multiple times without improvement. She has seen a neurologist at [facility] without any better explanation of her facial pain. The neurologist ordered fascial PT at [facility] (starts 12/01/20) and referred her to [facility] for surgical consult. She has been in and out of the ER due to the uncontrolled pain.She reports secondary pain in her left hip which affects her gait. The pain is located on the outside and radiates towards the inside. She has tried PT at [facility] in [place] for the hip with no benefit. She is scheduled for an ultrasound of the hip edema next week.Referred by PCP.Treatment Tried:tegretolCarbamazepinegabapentinCymbalta percocet PRN - helpful but causes fatigue.tramadol 50mg BID - helpful but causes fatigue.[facility] goal: [facility] to take [...]
--- OUTSIDE RECORDS SUMMARY | 2024-08-11 08:13 | XMS_ITS | Encounter Summary ---
Author Organization [facility] Address [address] [place] [address] Care Team Providers Care Jewel Waxer Name Role Phone Meghna Potter MD Primary Care P rovider No Ref-Primary, Physician Primary Care Provider Meghna Potter MD Unavailable Omar Spicer MD Unavailable Roger Moseley DDS Unavailable [phone] Omar Spicer MD Unavailable Reason for Visit * Reason Onset Date Comments Medication Request 03/19/2011 Encounter Details Date Type Department Care Team (Late st Contact Info) Description 03/19/[address] [address] Aminata Singh PA-C [facility] [address] [address] Medication Request Social History Tobacco Use Types Packs/Day Years Used Date Smoking Tobacco: Never Smokeless Tobacco: Never Comments:no second hand smok e Alcohol Use Standard Drinks/Week Comments Yes 0 (1 standard drink = 0.6 oz pur e alcohol) socialy Comments No Sex and Gender Information Value Date Recorded Sex Assigned at Not on file 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 [facility] - didn' have # Thank you documented in this encounter Plan of Treatment Not on file documented as of this encounter Visit Diagnoses Diagnosis BV (bacterial vaginosis)- Primary Vaginitis and vulvovaginitis, unspecified documented in this encounter Care Teams Jewel Waxer Relationship Specialty [place] [address] [address] [id number] PCP - General Family Practice 08/26/09 05/04/18 No Ref-Primary, Physician PCP - General 05/05/18 [place] [address] [address] [address] Family Practice 05/05/18 Omar Spicer MD [address] [place], [place] [id number] [address] Neurological Surgery 11/18/20 Roger Moseley DDS [facility] [address] [facility] [address] [place] [address] Referring Physician Dentist 11/18/20 Omar Spicer MD [address] [facility] [id number] [place] [address] Assigned Neuroscience Provider 12/18/20 11/23/22 documented as of this encounter
--- OUTSIDE RECORDS SUMMARY | 2024-08-11 08:13 | XMS_ITS | Encounter Summary ---
Author Organization [place] Address [address] [facility] [place] [address] Care Team Providers Care Ball Point Splitter Name Role Phone Meghna Potter MD Primary Care P rovider No Ref-Primary, Physician Primary Care Provider Meghna Potter MD Unavailable Omar Spicer MD Unavailable [phone] Roger Moseley DDS Unavailable [phone] Omar Spicer MD Unavailable [phone] Encounter Details Date Type Department Care Team (Late st Contact Info) Description 08/31/2010 MyC Medical Advice Initial Department [facility] Social History Tobacco Use Types Packs/Day Years Used Date Smoking Tobacco: Never Comments:no second hand smok e Alcohol Use Standard Drinks/Week Comments Yes 0 (1 standard drink = 0.6 oz pur e alcohol) socialy Comments No Sex and Gender Information Value Date Recorded Sex Assigned at Not on file Legal Sex Female 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 Gender Identity Not on file Sexual Orientation Not on file 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 on file documented as of this encounter Plan of Treatment Not on file documented as of this encounter Visit Diagnoses Not on filedocumented in this encounter Care Teams Ball Point Splitter Relationship Specialty [place] [address] [address] [address] PCP - General Family Practice 08/26/09 05/04/18 No Ref-Primary, Physician PCP - General 05/05/18 [place] [address] [address] [phone] Family Practice 05/05/18 Omar Spicer MD [address] [address] Neurological Surgery 11/18/20 Roger Moseley DDS [facility] [address] [facility] [address] [place] [address] Referring Physician Dentist 11/18/20 Omar Spicer MD [address] [address] Assigned Neuroscience Provider 12/18/20 11/23/22 documented as of this encounter
--- OUTSIDE RECORDS SUMMARY | 2024-08-11 08:13 | XMS_ITS | Continuity of Care Document ---
Author Organization [facility] Address [address] [place] [address] Care Team Providers Care Associate Professor Of Library Media Name Role Phone Prasanna Lan CRNA Unavailable Unavailable Procedures Procedure Date ANESTH, NERVE BLOCK/INJ ANESTH, HIP JOINT PROCEDURE Advance Directives Directive Yes / No Effective Date File Name No Information Encounters Encounter Description Practice Location Reason(s) For Visit Diagnoses Date Provider Providers Copied on Encounter [facility], [address] [place] [address], [id number], [facility] No Information 2 Riky Mims. [address] [place], [place], [id number] , . tel:[phone] Referring Provider: [facility] [address], [place], [address]. tel:[phone] [facility], [address] [place] [address], [id number], [facility] No Information 2 Susan May. [address] [facility], [place], [place], [id number] , . [phone] Referring Provider: Sujit Menon [facility] [address], [place], [address]. tel:[phone] Family History Family Member Type Diagnosis Age At Onset No Information Payers Payer name Insurance type Covered constitution party ID Authoriza tion(s) Blue Cross Blue Shield Of [facility] [id number] Social History Type Description Quantity Date [...]
--- OUTSIDE RECORDS SUMMARY | 2024-08-11 08:13 | XMS_ITS | Clinical Summary ---
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 Gender Identity Not on file Sexual Orientation [...] Treatment Not on file [place] * Guarantor: Leilani Lundy Account Type Relation to Patient Date of Phone Billing Address Medication Therapy Self [address] [address] [place] Care Teams Coal Trimmer Relationship Specialty Start Date End Date No Ref-Primary, Physician PCP - General 05/05/18 [place] [address] [place] [address] Family Practice 05/05/18 Omar Spicer MD 909 [facility] [id number] [place] [address] Neurological Surgery 11/18/20 Roger Moseley DDS [facility] 3475 [facility] 200 [place] [address] Referring Physician Dentist 11/18/20
--- OUTSIDE RECORDS SUMMARY | 2024-08-11 08:13 | XMS_ITS | Continuity of Care Document ---
Author Organization [facility] Address [address] [place] [address] Phone Care Team Providers Care Watch Assembler Name Role Phone Jose Cruz Cary MD Unavailable Unavailable Allergies, Adverse Reactions, Alerts Substance Reaction Status Criticality No Known Allergies Active No Inform ation Medications Medication Instructions Dosage Effective Dates (start - stop) Status Comments diclofenac sodium 50 mg tablet,delayed release take 1 tablet by oral route 2 times every day 50 MG - Active Vitamin D3 2,000 unit tablet take 1 Tablet by Oral route every day 1 Tablet - Active hydrochlorothiazide 12.5 mg tablet take 1 tablet by oral route every day 12.5 MG - Active trazodone 50 mg tablet take 2 Tablets by oral route every bedtime after meals - Active gabapentin 300 mg capsule take 1 capsule by oral route 3 times every day 300 MG - Active Procedures Procedure Date Office/Outpatient [...] [facility], [address], [place], [address], [place] tel:[phone] [facility] , leg pain (chief complaint) Pain in leg, unspecified 0 Raeann Billingsley. [facility] [address], [place], [address], [place]. tel:[phone] Referring Provider: Jose Cruz Aguilar [facility] [address], [place], [address]. tel:[phone] Family History Family Member Type Diagnosis Age At Onset Problem No family history of Rheumat oid arthritis Payers Payer name Insurance type Covered green party ID Dee lovelace(s) [facility] [id number] Social History Type Description Quantity Date Captured [...]
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
--- OUTSIDE RECORDS SUMMARY | 2024-08-11 08:13 | XMS_ITS | Continuity of Care Document ---
Author Organization [facility] enter Address [address] [place] [address] Phone Care Team Providers Care Preventive Medicine Physician Name Role Phone [facility] Unavailable Unava ilable Procedures Procedure Date [...] Diagnoses Date Provider Providers Copied on Encounter [facility], [address] [place] [address], [id number], tel:[phone] [place] [address] No Information 2 [facility]. [address] [place] [address], [id number], [place]. tel:[phone] Referring Provider: Williams Saunders [address], [place], [address]. tel:[phone] [facility], [address] [place] [address], [id number], tel:[phone] [place] [address] No Information 2 [facility]. [address] [place] [address], [id number], . tel:[phone] Referring Provider: Williams Saunders Sequence Design [address] [employer] [address], [place], [address]. tel:[phone] [facility], [address] [place] [address], [id number], tel:[phone] [place] [address] No Information [facility]. [address] [place] [address], [id number], . tel:[phone] Referring Provider: Williams Saunders [facility] [address], [place], [address]. tel:[phone] [facility], [address] [place] [address], [id number], tel:[phone] [place] [address] No Information [facility]. [address] [place] [address], [id number], . tel:[phone] Referring Provider: Williams Saunders [employer] [facility] [address], [place], [address]. tel:[phone] [facility], [address] [place] [address], [id number], tel:[phone] [place] [address] No Information [facility]. [address] [place] [address], [id number], . tel:[phone] Referring Provider: Williams Saunders [facility] [address], [place], [address]. tel:[phone] Family History Family Member Type Diagnosis Age At Onset No Information Payers Payer name Insurance type Covered republican ID Authoriza timiller(s) [facility] [id number] Social History Type Description Quantity Date [...]
--- OUTSIDE RECORDS SUMMARY | 2024-08-11 08:13 | XMS_ITS | Encounter Summary ---
Author Organization [facility] Address [address] [place] [address] Care Team Providers Care General Manager In Training Name Role Phone Meghna Potter MD Primary Care P rovider No Ref-Primary, Physician Primary Care Provider Meghna Potter MD Unavailable Omar Spicer MD Unavailable [phone] Roger Moseley DDS Unavailable [phone] Omar Spicer MD Unavailable Reason for Visit * Reason Onset Date Comments Results 04/12/2010 labs Encounter Details Date Type Department Care Team (Late st Contact Info) Description 04/12/2010 Telephone [facility] [address] [address] Julia Arshad MD [place] [address] [place] [address] Results (labs ) Social History Tobacco Use Types Packs/Day Years Used Date Smoking Tobacco: Never Comments:no second hand smok e Alcohol Use Standard Drinks/Week Comments Yes 0 (1 standard drink = 0.6 oz pur e alcohol) socialy Comments No Sex and Gender Information Value Date Recorded Sex Assigned at Not on file 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 Gender Identity Not on file Sexual Orientation [...] on filedocumented in this encounter Care Teams General Manager In Training Relationship Specialty [place] [address] [place] [phone] PCP - General Family Practice 08/26/09 05/04/18 No Ref-Primary, Physician PCP - General 05/05/18 [place] [address] [address] [phone] Family Practice 05/05/18 Omar Spicer MD 909 [facility] [id number] [place] [address] Neurological Surgery 11/18/20 Roger Moseley DDS [facility] 3475 [facility] 200 [place] [address] Referring Physician Dentist 11/18/20 Omar Spicer MD [address] [facility] [id number] [place] [address] Assigned Neuroscience Provider 12/18/20 11/23/22 documented as of this encounter
== END 2024-08-07 07:07 | disposition home or self-care (01) ==
PROVIDERS: Emergency Provider Internal Medicine; PCP Family Medicine
DX: G50.0 Trigeminal neuralgia (principal)
CPT/HCPCS: 96372; 99283; 99284; J1885

== ENCOUNTER 2024-11-23 02:28 | Emergency (ER) | payer OTHER, SELFPAY ==
--- OUTSIDE RECORDS SUMMARY | 2020-03-11 06:15 | XMS_ITS | Continuity of Care Document ---
Author Organization [facility] Address [address] [place] [address] Phone Care Team Providers Care Senior Designer/Art Director Name Role Phone Raeann ECHEVARRIA, Jose Cruz Unavailable Unavailable Allergies, Adverse Reactions, Alerts Substance Reaction Status Criticality No Known Allergies Active No Inform ation Medications Medication Instructions Dosage Effective Dates (start - stop) Status Comments gabapentin 300 mg capsule take 1 capsule by oral route 3 times every day 300 MG - Active trazodone 50 mg tablet take 2 Tablets by oral route every bedtime after meals - Active hydrochlorothiazide 12.5 mg tablet take 1 tablet by oral route every day 12.5 MG - Active Vitamin D3 2,000 unit tablet take 1 Tablet by Oral route every day 1 Tablet - Active diclofenac sodium 50 mg tablet,delayed release take 1 tablet by oral route 2 times every day 50 MG - Active Procedures Procedure Date Office/Outpatient Visit, New Routine Venipuncture Rbc Sed Rate, Nonautomated Assay Of Ck (Cpk) CReactive Protein CCP Antibody Results Test Name Date and Time Measure Units Reference Range Abnormal Flag Status Commen ts Panel Description: ESR Final ESR 12:44:00 9 mm/hr 0-20 Final Panel Description: CPK Final CK 13:36:00 159 U/L 26-140 H Final Panel Description: CRP Final CRP 13:36:00 0.01 MG/DL 0.00-0.60 Final LOW=Actual Result is BELOW Linearity of Analyzer Panel Description: CCP Final cCP 16:12:00 2.3 U/mL 0.0-5.0 Final Advance Directives Directive Yes / No Effective Date File Name No Information Encounters Encounter Description Practice Location Reason(s) For Visit Diagnoses Date Provider Providers Copied on Encounter Office/Outpa tient Visit, New [facility], [address], [place], [address], [place] tel:[phone] [facility] , leg pain (chief complaint) Pain in leg, unspecified 0 Raeann Billingsley. [facility] [address], [place], [address], [place]. tel:[phone] Referring Provider: Jose Cruz Aguilar [facility] [address], [place], [address]. tel:[phone] Family History Family Member Type Diagnosis Age At Onset Problem No family history of Rheumat oid arthritis Payers Payer name Insurance type Covered democrat ID Dee lovelace(s) [facility] [id number] Social History Type Description Quantity Date Captured Comments Alcohol Use Details Caffeine Use Details Unknown Tobacco Use Status Current non-smoker 20 Smoking Status Never smoker Non-Smoking Tobacco Use Details : No Details Available : No Details Available Sex Female Vital Signs Date / Time: Height Weight BMI Pulse Rate Blood Pressure Temperature Respiratory Rate Body Surface Area Head Circumference Head Circ. Percentile Wt./Ra. Percentile BMI percentile Pulse Ox Inhaled Ox 11:46 AM 65.75 in 89.358 kg (197.00 lbs) 32.0 4 kg/m eter (2) 110/60 mm[Hg] 97.60 F Chief Complaint And Reason For Visit From encounter dated '03/11/2020 11:15'. leg pain (chief complaint) Reason For Referral Reason For Referral No Information History Of Present Illness Encounter Date Complaint History Of Prese nt Illness leg pain Functional Status Date Functional Assessmen t Pain Score 8/10 Instructions Date Instruction Additional Infor mation No Information Assessments Type Assessment Date assessment Pain in leg, unspecified 2019 Patient Care Teams Name Effective Dates (start - stop) Status Members No Information
--- OUTSIDE RECORDS SUMMARY | 2020-03-11 06:15 | XMS_ITS | Continuity of Care Document ---
Author Organization [facility] Address [address] [place] [address] Phone Care Team Providers Care Glove Cuffer Name Role Phone Raeann ECHEVARRIA, Jose Cruz [...] [facility], [address], [place], [address], [place] tel:[phone] [facility] , leg pain (chief complaint) Pain in leg, unspecified 0 Raeann Billingsley. [facility] [address], [place], [address], [place]. tel:[phone] Referring Provider: Jose Cruz Aguilar [facility] [address], [place], [address]. tel:[phone] Family History Family Member Type Diagnosis Age At Onset Problem No family history of Rheumat oid arthritis Payers Payer name Insurance type Covered democrat ID Dee lovelace(s) [facility] [id number] Social History Type Description Quantity Date Captured [...]
--- OUTSIDE RECORDS SUMMARY | 2021-08-11 05:59 | XMS_ITS | Continuity of Care Document ---
Author Organization [facility] Address [address] [place] [id number] Care Team Providers Care Dot Net Developer Name Role Phone Prasanna Lan CRNA Unavailable Unavailable Procedures Procedure Date ANESTH, NERVE BLOCK/INJ ANESTH, HIP JOINT PROCEDURE Advance Directives Directive Yes / No Effective Date File Name No Information Encounters Encounter Description Practice Location Reason(s) For Visit Diagnoses Date Provider Providers Copied on Encounter [facility], [address] [place] [address], [id number], [facility] No Information 2 Riky Mims. [address] [place], [place], [id number] , . [phone] Referring Provider: [facility] [address] [address], [place], [address]. tel:[phone] [facility], [address] [place] [address], [id number], [facility] No Information 2 Susan May. [address] [facility], [place], [place], [id number] , . [phone] Referring Provider: Sujit Menon [facility] [address], [place], [address]. tel:[phone] Family History Family Member Type Diagnosis Age At Onset No Information Payers Payer name Insurance type Covered libertarian ID Authoriza tion(s) Blue Cross Blue Shield Of [facility] [id number] Social History Type Description Quantity Date [...]
--- OUTSIDE RECORDS SUMMARY | 2021-08-11 05:59 | XMS_ITS | Continuity of Care Document ---
Author Organization [facility] Address [address] [place] [address] Care Team Providers Care Gambling Dealer Name Role Phone Prasanna Lan CRNA Unavailable Unavailable Procedures Procedure Date ANESTH, NERVE BLOCK/INJ ANESTH, HIP JOINT PROCEDURE Advance Directives Directive Yes / No Effective Date File Name No Information Encounters Encounter Description Practice Location Reason(s) For Visit Diagnoses Date Provider Providers Copied on Encounter [facility], [address] [place] [address], [id number], [facility] No Information 2 Riky Mims. [address] [place], [place], [id number] , . [phone] Referring Provider: [facility] [employer] [address], [place], [address]. tel:[phone] [facility], [address] [place] [address], [id number], [facility] No Information 2 Susan May. [address] [facility], [place], [place], [id number] , . [phone] Referring Provider: Sujit Menon [facility] [address], [place], [address]. tel:[phone] Family History Family Member Type Diagnosis Age At Onset No Information Payers Payer name Insurance type Covered republican ID Authoriza tion(s) Blue Cross Blue Shield Of [facility] [id number] Social History Type Description Quantity Date [...]
--- OUTSIDE RECORDS SUMMARY | 2021-08-15 09:45 | XMS_ITS | Continuity of Care Document ---
Author Organization [facility] enter Address [address] [place] [phone] Phone Care Team Providers Care Carton Forming Machine Adjuster Name Role Phone [facility] Unavailable Unava ilable Procedures Procedure Date MAJOR JOINT OR BURSA INJ WITH ULTRASOUND MAJOR JOINT OR BURSA INJ WITH ULTRASOUND MEDIUM JOINT/BURSA DRAIN/INJECT,WITH ULT RASOUND MEDIUM JOINT/BURSA DRAIN/INJECT,WITH ULT RASOUND MAJOR JOINT OR BURSA INJ WITH ULTRASOUND MAJOR JOINT OR BURSA INJ WITH ULTRASOUND Advance Directives Directive Yes / No Effective Date File Name No Information Encounters Encounter Description Practice Location Reason(s) For Visit Diagnoses Date Provider Providers Copied on Encounter [facility], [address] [place] [address], [id number], tel:[phone] [place] [address] No Information 2 [facility]. [address] [place] [address], [id number], [place]. tel:[phone] Referring Provider: Williams Saunders [address], [place], [address]. tel:[phone] [facility], [address] [place] [address], [id number], tel:[phone] [place] [address] No Information 2 [facility]. [address] [place] [address], [id number], . tel:[phone] Referring Provider: Williams Saunders [employer] [address], [place], [address]. tel:[phone] [facility], [address] [place] [address], [id number], tel:[phone] [place] [address] No Information [facility]. [address] [place] [address], [id number], . tel:[phone] Referring Provider: Williams Saunders [employer] [address] [facility] [address], [place], [address]. tel:[phone] [facility], [address] [place] [address], [id number], tel:[phone] [place] [address] No Information [facility]. [address] [place] [address], [id number], . tel:[phone] Referring Provider: Williams Saunders [employer] [address] [facility] [address], [place], [address]. tel:[phone] [facility], [address] [place] [address], [id number], tel:[phone] [place] [address] No Information [facility]. [address] [place] [address], [id number], . tel:[phone] Referring Provider: Williams Saunders [facility] [facility] [address], [place], [address]. tel:[phone] Family History Family Member Type Diagnosis Age At Onset No Information Payers Payer name Insurance type Covered green party ID Authoriza timiller(s) [facility] [id number] Social History Type Description Quantity Date [...]
--- OUTSIDE RECORDS SUMMARY | 2021-08-15 09:45 | XMS_ITS | Continuity of Care Document ---
Author Organization [facility] enter Address [address] [place] [phone] Phone Care Team Providers Care Group President Name Role Phone [facility] Unavailable Unava ilable Procedures Procedure Date MAJOR [...] Diagnoses Date Provider Providers Copied on Encounter [facility], [address] [place] [address], [id number], tel:[phone] [place] [address] No Information 2 [facility]. [address] [place] [address], [id number], [place]. tel:[phone] Referring Provider: Williams Saunders [address], [place], [address]. tel:[phone] [facility], [address] [place] [address], [id number], tel:[phone] [place] [address] No Information 2 [facility]. [address] [place] [address], [id number], . tel:[phone] Referring Provider: Williams Saunders [address], [place], [address]. tel:[phone] [facility], [address] [place] [address], [id number], tel:[phone] [place] [address] No Information [facility]. [address] [place] [address], [id number], . tel:[phone] Referring Provider: Williams Saunders [address], [place], [address]. tel:[phone] [facility], [address] [place] [address], [id number], tel:[phone] [place] [address] No Information [facility]. [address] [place] [address], [id number], . tel:[phone] Referring Provider: Williams Saunders [address], [place], [address]. tel:[phone] [facility], [address] [place] [address], [id number], tel:[phone] [place] [address] No Information [facility]. [address] [place] [address], [id number], . tel:[phone] Referring Provider: Williams Saunders [address], [place], [address]. tel:[phone] Family History Family Member Type Diagnosis Age At Onset No Information Payers Payer name Insurance type Covered republican ID Authoriza timiller(s) [facility] [id number] Social History Type Description Quantity Date [...]
--- OUTSIDE RECORDS SUMMARY | 2021-11-10 05:20 | XMS_ITS | Continuity of Care Document ---
Author Organization [facility] Address [address] [place] [address] Phone Care Team Providers Care Customer Support Associate Name Role Phone Will Omar ZEPEDA Unavailable Unavailabl e Allergies, Adverse Reactions, Alerts Substance Reaction Status Criticality tree and shrub pollen Active No Inf ormation ibuprofen Active No Information Medications Medication Instructions Dosage Effective Dates (start - stop) Status Comments Imitrex 25 mg tablet take 1 tablet by oral route after onset of migraine; may repeat after 2 hours if headache returns,not to exceed 200mg in 24hrs 25 MG - Active buspirone 15 mg tablet take 1 tablet by oral route 3 times every day 15 MG - Active carbamazepine ER 300 mg capsule,extended release [id number] take 1 capsule by oral route every 12 hours 300 MG - Active cyanocobalamin (vitamin B-12) 1,000 mcg capsule - Active hydroxyzine HCl 25 mg tablet take 1 tablet by oral route every day as needed 25 MG - Active diclofenac sodium 50 mg tablet,delayed release take 1 tablet by oral route 2 times every day 50 MG - Active hydrochlorothiazide 12.5 mg tablet take 1 tablet by oral route every day 12.5 MG - Active gabapentin 300 mg capsule take 1 capsule by oral route 3 times every day 300 MG - Active trazodone 50 mg tablet take 1 tablet by oral route every day at bedtime 50 MG - Active cholecalciferol (vitamin D3) 50 mcg (2,000 unit) capsule - Active Procedures Procedure Date OFFICE/OUTPATIENT VISIT, EST OFFICE/OUTPATIENT VISIT, EST BILATERAL MAJOR JOINT/BURSA DRAIN/INJ WI TH ULTRASO MEDIUM JOINT/BURSA DRAIN/INJECT,WITH ULT RASOUND Foll-up eval q3mo opiod tx OFFICE/OUTPATIENT VISIT, EST ROUTINE BLOOD DRAW No Charge For Visit Per Prov Drug Urine Toxology With Chromatography Drug test def 15-21 classes Foll-up eval q3mo opiod tx OFFICE/OUTPATIENT VISIT, EST ROUTINE BLOOD DRAW Foll-up eval q3mo opiod tx OFFICE/OUTPATIENT VISIT, EST MEDIUM JOINT/BURSA DRAIN/INJECT,WITH ULT RASOUND LT Major Joint Or Bursa Inj With Ultraso und Foll-up eval q3mo opiod tx OFFICE/OUTPATIENT VISIT, EST Foll-up eval q3mo opiod tx OFFICE/OUTPATIENT VISIT, EST Foll-up eval q3mo opiod tx Foll-up eval q3mo opiod tx OFFICE/OUTPATIENT VISIT, EST LT Major Joint Or Bursa Inj With Ultraso und Foll-up eval q3mo opiod tx OFFICE/OUTPATIENT VISIT, EST Foll-up eval q3mo opiod tx OFFICE/OUTPATIENT VISIT, EST Drug Urine Toxology With Chromatography OFFICE/OUTPATIENT VISIT, NEW DAST 15-30 MIN Advance Directives Directive Yes / No Effective Date File Name No Information Encounters Encounter Description Practice Location Reason(s) For Visit Diagnoses Date Provider Providers Copied on Encounter [facility], [address] [place], [place], [id number] , [place] tel:[phone] [facility] [place]ha No Information Jose Nelson. [address] [place], [id number] , [place]. tel: [phone] OFFICE/OUTPA TIENT VISIT, [facility], [address] [place], [place], [id number] , [place] tel: [phone] [facility] [place] Facial Pain (chief complaint) Anxiety disorder, unspecifiedChronic migraine without aura, intractable, without status migrainosusTrigemi nal neuralgiaPain in right kneePain in left kneeUnspecified temporomandibular joint disorder, unspecified sideTrochanteric bursitis, left hipFatigueLong term (current) use of opiate analgesicOther jail (current) drug therapyChronic pain syndrome Aug- 2 Saunders Williams. [employer], [address], [place], [address], [place]. tel:[phone] Referring Provider: [facility] [address], [place], [address]. tel:[phone] OFFICE/OUTPA TIENT VISIT, [facility], [address], [place], [id number] , [place] tel: [phone] [facility] Facial pain (chief complaint) Unspecified temporomandibular joint disorder, unspecified sideTrochanteric bursitis, left hipLong term (current) use of opiate analgesicChronic pain syndromeChronic migraine without aura, intractable, without status migrainosusAnxiety disorder, unspecifiedOther terminal clerk (current) drug therapyPain in right kneePain in left kneeTrigeminal neuralgiaFatigue 2 Saunders Williams. [employer], [address], [place], [address], [place]. [phone] Referring Provider: [facility] [address], [place], [address]. [phone] [facility], [address], [place], [id number] , [place] tel:[phone] [facility] Pain in right kneePain in left knee 2 Saunders Williams. [facility], [address], [place], [address], [place]. tel: [phone] Referring Provider: Denton Wang [facility] [address], [place], [address]. tel:[phone] [facility], [address], [place], [id number] , [place] tel: [phone] [facility] Unspecified temporomandibular joint disorder, unspecified side 2 Saundersgrisel Kramer. [facility], [address], [place], [address], [place]. tel: [phone] Referring Provider: Denton Wang [facility] [address], [place], [address]. tel:[phone] OFFICE/OUTPA TIENT VISIT, [facility], [address], [place], [id number] , [place] tel: [phone] [facility] Facial pain (chief complaint) Unspecified temporomandibular joint disorder, unspecified sideTrochanteric bursitis, left hipLong term (current) use of opiate analgesicChronic pain syndromeChronic migraine without aura, intractable, without status migrainosusAnxiety disorder, unspecifiedOther terminal clerk (current) drug therapyPain in right kneePain in left kneeTrigeminal neuralgia 2 Nyongesa Krupa. [address] [facility] [address], [place], [place], [id number] , [place]. tel: [phone] Referring Provider: Denton Wang [facility] [address], [place], [address]. tel:[phone] [facility], [address] [place] [address], [id number] , [place] tel: [phone] [facility] No Information 2 Nyongesa Krupa. [address] [facility] [address], [place], [place], [id number] , [place]. tel: [phone] Referring Provider: Omar Ferrera, [address] [place], [address]. tel:[phone] OFFICE/OUTPA TIENT VISIT, [facility], [address] [place], [id number] , [place] tel:[phone] [facility] Facial pain (chief complaint) Unspecified temporomandibular joint disorder, unspecified sideTrochanteric bursitis, left hipLong term (current) use of opiate analgesicChronic pain syndromeChronic migraine without aura, intractable, without status migrainosusAnxiety disorder, unspecifiedOther terminal clerk (current) drug therapyPain in right kneePain in left kneeTrigeminal neuralgiaEncounter for therapeutic drug level monitoring 2 Heathersa Krupa. [address] [facility] [address], [place], [id number] , [place]. tel:[phone] Referring Provider: Denton Wang [facility] [address], [place], [address]. [phone] [facility], [address] [place], [address] , [place] tel:[phone] [facility] No Information 2 Nyaguilar Krupa. [address] [facility] [address], [place], [id number] , [place]. tel:[phone] OFFICE/OUTPA TIENT VISIT, [facility], [address] [place], [address] , [place] tel:[phone] [facility] Facial pain (chief complaint) Unspecified temporomandibular joint disorder, unspecified sideTrochanteric bursitis, left hipLong term (current) use of opiate analgesicChronic pain syndromeChronic migraine without aura, intractable, without status migrainosusAnxiety disorder, unspecifiedOther terminal clerk (current) drug therapyPain in right kneePain in left kneeTrigeminal neuralgia 2 Nyongesa Krupa. [address] [facility] [address], [place], [id number] , [place]. tel:[phone] Referring Provider: [facility] [address], [place], [address]. tel:[phone] [facility], [address], [place], [id number] , [place] [phone] [facility] Unspecified temporomandibular joint disorder, unspecified side 2 Saunders Williams. [facility], [address], [place], [address], [place]. tel:[phone] Referring Provider: [facility] [address], [place], [address]. [phone] [facility], [address] [place] [address], [id number] , [place] [phone] [facility] Trochanteric bursitis, left hip 1 Saunders Williams. [facility], [address], [place], [address], [place]. tel:[phone] Referring Provider: [facility] [address], [place], [address]. [phone] [facility], [address] [place] [address], [id number] , [place] [phone] [facility] [place] No Information 1 Dorothy Gentile. [address] [place] [address] [address], [place], [place], [address] , [place]. tel:[phone] OFFICE/OUTPA TIENT VISIT, [facility], [address], [place], [id number] , [place] tel:[phone] [facility] [place] Facial pain (chief complaint) TMJ disorderLong term (current) use of opiate analgesicTrochante stephanie bursitis, left hipChronic pain syndromeAnxiety disorder, unspecifiedChronic migraine without aura, intractable, without status migrainosusTrigemi nal neuralgiaOther jail (current) drug therapyPain in right kneePain in left kneeEncounter for therapeutic drug level monitoring 1 Dorothy Gentile. [address] [facility] [address], [place], [place], [id number] , [place]. tel: [phone] Referring Provider: Denton Wang [facility] [address], [place], [address]. tel:[phone] OFFICE/OUTPA TIENT VISIT, [facility], [address], [place], [address] , [place] tel: [phone] [facility] Facial pain (chief complaint) Trigeminal neuralgiaTMJ disorderLong term (current) use of opiate analgesicTrochante stephanie bursitis, left hipChronic pain syndromeFacial pain NOSAnxiety disorder, unspecifiedChronic migraine without aura, intractable, without status migrainosus 1 Chip Kramer. [facility], [address], [place], [address], [place]. tel: [phone] Referring Provider: Denton Wang [facility] [address], [place], [address]. tel:[phone] [facility], [address], [place], [id number] , [place] tel: [phone] [facility] Facial pain (chief complaint) Chronic migraine without aura, intractable, without status migrainosusTrigemi nal neuralgiaTMJ disorderLong term (current) use of opiate analgesicTrochante stephanie bursitis, left hipChronic pain syndromeFacial pain NOSAnxiety disorder, unspecifiedOther terminal clerk (current) drug therapy 1 Dorothy Gentile. [address] [facility] [address], [place], [address] , [place]. tel: [phone] Referring Provider: Denton Wang [facility] [address], [place], [address]. tel:[phone] OFFICE/OUTPA TIENT VISIT, [facility], [address], [place], [address] , [place] tel: [phone] [facility] Facial pain (chief complaint) Chronic migraine without aura, intractable, without status migrainosusTrigemi nal neuralgiaTMJ disorderLong term (current) use of opiate analgesicTrochante stephanie bursitis, left hipChronic pain syndromeFacial pain NOS 1 Dorothy Gentile. [address] [facility] [address], [place], [id number] , [place]. tel: [phone] Referring Provider: Denton Wang [facility] [address], [place], [address]. tel:[phone] [facility], [address], [place], [id number] , [place] tel: [phone] [facility] Trochanteric bursitis, left hip [address] [facility], [address], [place], [address], [place]. tel: [phone] Referring Provider: Denton Wang [facility] [address], [place], [address]. tel:[phone] OFFICE/OUTPA TIENT VISIT, [facility], [address] [place] [address], [id number] , [place] tel: [phone] [facility] Facial pain (chief complaint) Chronic migraine without aura, intractable, without status migrainosusTrigemi nal neuralgiaTMJ disorderLong term (current) use of opiate analgesicTrochante stephanie bursitis, left hipChronic pain syndromeFacial pain NOS 1 Dorothy Gentile. [address] [facility] [address], [place], [id number] , [place]. tel: [phone] Referring Provider: Denton Wang [facility] [address], [place], [address]. tel:[phone] OFFICE/OUTPA TIENT VISIT, [facility], [address], [place], [address] , [place] tel: [phone] [facility] Facial pain (chief complaint) left hip pain (chief complaint) Chronic migraine without aura, intractable, without status migrainosusTrigemi nal neuralgiaTMJ disorderLong term (current) use of opiate analgesicTrochante stephanie bursitis, left hipChronic pain syndromeFacial pain NOS Arnaud-0 1 Dorothy Gentile. [address] [facility] [address], [place], [id number] , [place]. tel:[phone] Referring Provider: [facility] [address], [place], [address]. tel:[phone] [facility], [address] [place] [address], [id number] , [place] tel:[phone] [facility] [place] No Information 1 Dorothy Gentile. [address] [facility] [address], [place], [id number] , [place]. tel:[phone] Referring Provider: Omar Ferrera, [address] [place], [address]. tel:[phone] OFFICE/OUTPA TIENT VISIT, [facility], [address], [place], [address] , [place] tel:[phone] [facility] facial pain (chief complaint) Chronic pain syndromeEncounter for screening for other disorderFacial pain NOSTrigeminal neuralgiaTMJ disorderLong term (current) use of opiate analgesicEncounter for therapeutic drug level monitoringTrochant gely bursitis, left hipChronic migraine without aura, intractable, without status migrainosus 1 Dorothy Gentile. [address] [facility] [address], [place], [id number] , [place]. tel:[phone] Referring Provider: [facility] [address], [place], [address]. tel:[phone] Family History Family Member Type Diagnosis Age At Onset Problem Family history of chronic pa in Payers Payer name Insurance type Covered republican ID Dee lovelace(s) [facility] [id number] Social History Type Description Quantity Date Captured Comments Alcohol Use Details Unknown Caffeine Use Details Unknown Tobacco Use Status No Information Smoking Status No Information Sex Female Chief Complaint And Reason For Visit No Information Reason For Referral Reason For Referral No Information Plan Of Treatment Date Type Action Status Goal Creatinine. Due on due Goal AST (SGOT). Due on due Goal ALT (SGPT). Due on due Goal HOISTING PILE DRIVING ENGINEER Paperwork. Due on due Goal UDT. Due on due Goal Order Annual PT. Due on due Goal OARS. Due on due Goal LIVESTOCK LABORER Scanned. Due on due Goal Update Social History. Due o n due Goal Weight. Due on d ue Goal PHQ-9. Due on du e Goal Medication Reconciliation. D ue on due Goal Tobacco Use. Due on due Goal Height. Due on d ue Goal Review Allergy List. Due on due Goal Hepatitis C screening. Due o n due Goal HPV. Due on due Goal Lipid panel. Due on due Goal Unhealthy drug use screening . Due on due Goal AST (SGOT). Due on due Goal Creatinine. Due on due Goal LIVESTOCK LABORER Scanned. Due on due Goal UDT. Due on due Goal HOISTING PILE DRIVING ENGINEER Paperwork. Due on due Goal OARS. Due on due Goal ALT (SGPT). Due on due Goal Order Annual PT. Due on due Goal Medication Reconciliation. D ue on due Goal Review Allergy List. Due on due Goal Tobacco Use. Due on due Goal PHQ-9. Due on du e Goal Height. Due on d ue Goal Update Social History. Due o n due Goal Weight. Due on d ue Goal AST (SGOT). Due on due Goal Creatinine. Due on due Goal LIVESTOCK LABORER Scanned. Due on due Goal UDT. Due on due Goal HOISTING PILE DRIVING ENGINEER Paperwork. Due on due Goal OARS. Due on due Goal ALT (SGPT). Due on due Goal Order Annual PT. Due on due Goal Medication Reconciliation. D ue on due Goal Review Allergy List. Due on due Goal Tobacco Use. Due on due Goal PHQ-9. Due on du e Goal Height. Due on d ue Goal Update Social History. Due o n due Goal Weight. Due on d ue Goal AST (SGOT). Due on due Goal Creatinine. Due on due Goal LIVESTOCK LABORER Scanned. Due on due Goal UDT. Due on due Goal HOISTING PILE DRIVING ENGINEER Paperwork. Due on due Goal OARS. Due on due Goal ALT (SGPT). Due on due Goal Order Annual PT. Due on due Goal Medication Reconciliation. D ue on due Goal Review Allergy List. Due on due Goal Tobacco Use. Due on due Goal PHQ-9. Due on du e Goal Height. Due on d ue Goal Update Social History. Due o n due Goal Weight. Due on d ue Goal AST (SGOT). Due on due Goal Creatinine. Due on due Goal LIVESTOCK LABORER Scanned. Due on due Goal UDT. Due on due Goal HOISTING PILE DRIVING ENGINEER Paperwork. Due on due Goal OARS. Due on due Goal ALT (SGPT). Due on due Goal Order Annual PT. Due on due Goal Medication Reconciliation. D ue on due Goal Review Allergy List. Due on due Goal Tobacco Use. Due on due Goal PHQ-9. Due on du e Goal Height. Due on d ue Goal Update Social History. Due o n due Goal Weight. Due on d ue Goal AST (SGOT). Due on due Goal Creatinine. Due on due Goal LIVESTOCK LABORER Scanned. Due on due Goal UDT. Due on due Goal HOISTING PILE DRIVING ENGINEER Paperwork. Due on due Goal OARS. Due on due Goal ALT (SGPT). Due on due Goal Order Annual PT. Due on due Goal Medication Reconciliation. D ue on due Goal Review Allergy List. Due on due Goal Tobacco Use. Due on due Goal PHQ-9. Due on du e Goal Height. Due on d ue Goal Update Social History. Due o n due Goal Weight. Due on d ue Goal AST (SGOT). Due on due Goal Creatinine. Due on due Goal LIVESTOCK LABORER Scanned. Due on due Goal UDT. Due on due Goal HOISTING PILE DRIVING ENGINEER Paperwork. Due on due Goal OARS. Due on due Goal ALT (SGPT). Due on due Goal Order Annual PT. Due on due Goal Medication Reconciliation. D ue on due Goal Review Allergy List. Due on due Goal Tobacco Use. Due on due Goal PHQ-9. Due on du e Goal Height. Due on d ue Goal Update Social History. Due o n due Goal Weight. Due on d ue Goal AST (SGOT). Due on due Goal Creatinine. Due on due Goal LIVESTOCK LABORER Scanned. Due on due Goal UDT. Due on due Goal HOISTING PILE DRIVING ENGINEER Paperwork. Due on due Goal OARS. Due on due Goal ALT (SGPT). Due on due Goal Order Annual PT. Due on due Goal Medication Reconciliation. D ue on due Goal Review Allergy List. Due on due Goal Tobacco Use. Due on due Goal PHQ-9. Due on du e Goal Height. Due on d ue Goal Update Social History. Due o n due Goal Weight. Due on d ue Goal AST (SGOT). Due on due Goal Creatinine. Due on due Goal LIVESTOCK LABORER Scanned. Due on due Goal UDT. Due on due Goal HOISTING PILE DRIVING ENGINEER Paperwork. Due on due Goal OARS. Due on due Goal ALT (SGPT). Due on due Goal Order Annual PT. Due on due Goal Medication Reconciliation. D ue on due Goal Review Allergy List. Due on due Goal Tobacco Use. Due on due Goal PHQ-9. Due on du e Goal Height. Due on d ue Goal Update Social History. Due o n due Goal Weight. Due on d ue Goal Medication Reconciliation. D ue on due Goal Review Allergy List. Due on due Goal Tobacco Use. Due on due Goal PHQ-9. Due on du e Goal Height. Due on d ue Goal Update Social History. Due o n due Goal AST (SGOT). Due on due Goal Creatinine. Due on due Goal LIVESTOCK LABORER Scanned. Due on due Goal UDT. Due on due Goal HOISTING PILE DRIVING ENGINEER Paperwork. Due on due Goal OARS. Due on due Goal ALT (SGPT). Due on due Goal Order Annual PT. Due on due Goal Weight. Due on d ue Goal AST (SGOT). Due on due Goal Creatinine. Due on due Goal LIVESTOCK LABORER Scanned. Due on due Goal UDT. Due on due Goal HOISTING PILE DRIVING ENGINEER Paperwork. Due on due Goal OARS. Due on due Goal ALT (SGPT). Due on due Goal Order Annual PT. Due on due Goal Weight. Due on d ue Goal Medication Reconciliation. D ue on due Goal Review Allergy List. Due on due Goal Tobacco Use. Due on due Goal PHQ-9. Due on du e Goal Height. Due on d ue Goal Update Social History. Due o n due Goal AST (SGOT). Due on due Goal Creatinine. Due on due Goal LIVESTOCK LABORER Scanned. Due on due Goal UDT. Due on due Goal HOISTING PILE DRIVING ENGINEER Paperwork. Due on due Goal OARS. Due on due Goal ALT (SGPT). Due on due Goal Order Annual PT. Due on due Goal Weight. Due on d ue Goal Medication Reconciliation. D ue on due Goal Review Allergy List. Due on due Goal Tobacco Use. Due on due Goal PHQ-9. Due on du e Goal Height. Due on d ue Goal Update Social History. Due o n due Goal AST (SGOT). Due on due Goal Creatinine. Due on due Goal LIVESTOCK LABORER Scanned. Due on due Goal UDT. Due on due Goal HOISTING PILE DRIVING ENGINEER Paperwork. Due on due Goal OARS. Due on due Goal ALT (SGPT). Due on due Goal Order Annual PT. Due on due Goal Weight. Due on d ue Goal Medication Reconciliation. D ue on due Goal Review Allergy List. Due on due Goal Tobacco Use. Due on due Goal PHQ-9. Due on du e Goal Height. Due on d ue Goal Update Social History. Due o n due Goal AST (SGOT). Due on due Goal Creatinine. Due on due Goal LIVESTOCK LABORER Scanned. Due on due Goal UDT. Due on due Goal HOISTING PILE DRIVING ENGINEER Paperwork. Due on due Goal OARS. Due on due Goal ALT (SGPT). Due on due Goal Order Annual PT. Due on due Goal Weight. Due on d ue Goal Medication Reconciliation. D ue on due Goal Review Allergy List. Due on due Goal Tobacco Use. Due on due Goal PHQ-9. Due on du e Goal Height. Due on d ue Goal Update Social History. Due o n due Goal AST (SGOT). Due on due Goal Creatinine. Due on due Goal LIVESTOCK LABORER Scanned. Due on due Goal UDT. Due on due Goal HOISTING PILE DRIVING ENGINEER Paperwork. Due on due Goal OARS. Due on due Goal ALT (SGPT). Due on due Goal Order Annual PT. Due on due Goal Weight. Due on d ue Goal Medication Reconciliation. D ue on due Goal Review Allergy List. Due on due Goal Tobacco Use. Due on due Goal PHQ-9. Due on du e Goal Height. Due on d ue Goal Update Social History. Due o n due Goal AST (SGOT). Due on due Goal Creatinine. Due on due Goal LIVESTOCK LABORER Scanned. Due on due Goal UDT. Due on due Goal HOISTING PILE DRIVING ENGINEER Paperwork. Due on due Goal OARS. Due on due Goal ALT (SGPT). Due on due Goal Order Annual PT. Due on due Goal Weight. Due on d ue Goal Medication Reconciliation. D ue on due Goal Review Allergy List. Due on due Goal Tobacco Use. Due on due Goal PHQ-9. Due on du e Goal Height. Due on d ue Goal Update Social History. Due o n due History Of Present Illness Encounter Date Complaint History Of Prese nt Illness Comments: Mrs. Jj velásquez is a 45 y/o woman here for follow up and medication refill in the setting of chronic facial pain. She has a hx of TMJ disorder and trigeminal neuralgia. Pain is stable this month, with ongoing fatigue. Notes that stress worsens her pain. 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 She also did not pursue rheumatology or neurology as she has done this in the past. She followed up with PCP but did not address her chronic fatigue.Current medication regimen provides moderate pain relief and increased functionality. Denies side effects from current regimen. No other concerns. Facial Pain The problem has not changed. The frequency of pain is persistent. The client reports the pain level is 8/10. Location of pain is left jaw. The client describes the pain as aching. Symptoms are triggered by eating. Pertinent negatives include fever, nausea and vomiting. Facial pain (comments) Mrs. Salome duran is a 45 y/o woman here for follow up and medication refill in the setting of chronic facial pain. She has a hx of TMJ disorder and trigeminal neuralgia. She states her flares have been fluctuating this month. S/p left TMJ injection 08/08/21 with increased TMJ pain, without s/s of infection. S/p BL knee joint injection on 08/15/21 with minimal relief thus far. She now reports full body aches with increased fatigue that was present before her recent injections and progressively worsening. Blood work done at [facility] yesterday shows everything is fine per her report after going to the ER. The assumption from other providers is that her pain is directly causing the fatigue. She also notes some GI upset recently and worsening headaches.Current medication regimen provides moderate pain relief and increased functionality. Denies side effects from current regimen. No other concerns. Facial pain The problem has Fluctuating. The frequency of pain is persistent. The patient reports the pain level is 8/10. Location of pain is left jaw. The patient describes the pain as aching. Symptoms are triggered by eating. Pertinent negatives include fever, nausea and vomiting. Facial pain The severity of the problem is moderate. The problem has not changed. The frequency of pain is persistent. Facial pain (comments) Leilani ferris s a 45 y/o female, here for follow up and medication refill in the setting of chronic facial pain. She has a hx of TMJ disorder and trigeminal neuralgia. She states her flares have been stable this month. s/p Left TMJ Injection on 06/28/[address] Perez with moderate relief and reduction in flares with 2 weeks relief. She details the injection was helpful however she can feel it slightly wearing off. She is scheduled for a repeat of her TMJ injection 08/08/[address] Williams Perez. She said she is excited to get her injections and is happy that she will have Dr. Perez doing the procedure. She states the TMJ injection provided better relief than the trigeminal nerve blocks she has done in the past.She is scheduled for her BL knee injections on 08/15/[address] Williams Perez as well. She states she will be meeting with her psychology therapist next week however she reports some disappointment in having to do her sessions virtually. She also details increased feelings of fatigue and believes this may be d/t dealing with her chronic pain issues for so long. Medications provide moderate pain relief, bringing her pain from 8/10 to 5/10. She states she takes MSER 15mg 2x/day and Oxycodone 10mg 2-3x/day PRN. Denies OIC or other SEs. No other concerns. Facial pain (comments) Leilani ferris s a 45 y/o female, here for follow up and medication refill in the setting of chronic facial pain. She has a hx of TMJ disorder and trigeminal neuralgia. She states her flares have been stable this month. s/p Left TMJ Injection on 06/28/[address] Perez with moderate relief and reduction in flares with 2 weeks relief. She details it has been particularly helpful however she can feel it slightly wearing off. She inquires how soon she can repeat these. She states she enjoyed the procedure with Dr. Perez and details he was very personable, is a very good doctor, adaptable and has swag. She states the TMJ injection provided better relief than the trigeminal nerve blocks she has done in the past.She notes she will call to schedule her BL knee injections. She reports some swelling around her knees and states she takes Lasix for this. At [facility] she stated she has not received a call from the psychology therapist yet. Medications provide moderate pain relief, bringing her pain from 8/10 to 5/10. She states she takes MSER 15mg 2x/day and Oxycodone 10mg 2-3x/day PRN. Denies OIC or other SEs. No other concerns. Facial pain The problem is s evere. The problem has not changed. The frequency of pain is persistent. The patient describes the pain as aching, burning, sharp and tingling. Symptoms are not triggered by bending, lifting, movement, prolonged positioning, running, sitting, stairs, standing or twisting. Pertinent negatives include fever, nausea and vomiting. Additional information: relieved by: changing positions, heat, ice, lying down, massage, walking, medications, rest, stretching. Facial pain (comments) Leilani ferris s a 45 y/o female, here for follow up and medication refill in the setting of chronic facial pain. She has a hx of TMJ disorder and trigeminal neuralgia. She states her flares have been stable this month. s/p Left TMJ Injection on 06/28/[address] Perez with moderate relief and reduction in flares, pending further results. She states the TMJ injection provided better relief than the trigeminal nerve blocks she has done in the past.s/p Left GT Bursa injection on 06/21/[address] Williams Perez with significant benefit.She also reports her BL knees have increased in pain, L>R and inquires about getting injections in her knees. She states she would like to complete injections in both knees. She states she has not received a call from the psychology therapist yet. Medications provide moderate pain relief. She states she takes MSER 15mg 2x/day and Oxycodone 10mg 2x/day PRN. Denies OIC or other SEs. No other concerns. Facial pain The problem is s evere. The problem has not changed. The frequency of pain is persistent. The patient reports the pain level is 8/10. The patient describes the pain as aching, burning, sharp and tingling. Pertinent negatives include fever, nausea and vomiting. Facial pain (comments) Leilani ferris s a 45 y/o female, here for follow up and medication refill in the setting of chronic facial pain. She has a hx of TMJ disorder and trigeminal neuralgia. She states she flares have been worse this month and with increasing frequency, especially on the L side of her face. Flares start at left TMJ and radiates down her mandible and up to her forehead. Trigeminal nerve blocks have provided relief in the past. Microvascular decompression for trigeminal neuralgia was not recommended by [place].She states that she would only be comfortable seeing an -[place] therapist.She is scheduled for a Left GT Bursa injection on 06/21/[address] Williams Perez. She also reports her BL knees have increased in pain, R=L and inquires about getting injections in her knees. She states she has done injections with her PCP Dr. Wang for her knee. Medications provide moderate pain relief. She states the Tramadol and the Percocet is no longer as helpful as it used to be. She states she is still taking Buspirone and reports that she is not finding it as effective to help with her anxiety. Denies SEs. No other concerns. Facial pain The problem is s evere. The problem has worsened. The frequency of pain is persistent. The patient describes the pain as aching, burning, tingling and sharp. Symptoms are triggered by bending, lifting, lying down, movement, prolonged positioning, sitting, stairs and standing. Pertinent negatives include fever, nausea and vomiting. Additional information: changing positions, heat, ice, massage, medications, standing, stretching, walking. Facial pain (comments) Leilani ferris s a 45 y/o female, here for a previously unscheduled f/u to discuss acute pain. She has a hx of TMJ disorder and trigeminal neuralgia. Trigeminal nerve blocks have provided relief in the past. Microvascular decompression for trigeminal neuralgia was not recommended by [place]. Current pain flare starts at left TMJ and radiates down her mandible and up to her forehead. Also reports her left GT bursa pain is starting to return after several months of benefit from our last injection.She just started 200 mg dose of tramadol ER yesterday, but says it is not helping enough. Facial pain The problem is s evere. The problem has worsened. The frequency of pain is persistent. The patient reports the pain level is 10/10. Location of pain is L TMJ. The patient describes the pain as aching and sharp. Symptoms are triggered by bending, lifting, movement and sitting. Pertinent negatives include fever, nausea and vomiting. Facial pain The problem has intermittent. The frequency of pain is persistent. The patient describes the pain as aching, sharp and tingling. Symptoms are not triggered by bending, lying down, movement, prolonged positioning or twisting. Pertinent negatives include fever, nausea and vomiting. Additional information: relieved by changing positions, heat, massage, medications, stretching, walking. Facial pain (comments) Leilani ferris s a 45 y/o female, here for a follow up and medications refill. Left sided facial pain persists this month, but medication does help to some extent. She states she is feeling better today than she did on 03/15/21 and that her pain flare is better, however she still has a dull ache in the left side of her jaw which can radiate to her ear. She states she is concerned that her pain flares are occurring more frequently since last OV and they are taking over her whole body. She also displays a new oral device/mouth guard for her TMJ from her facial pain specialist and reports the specialist also wants her to start facial therapy.She states she had a previous hx of anxiety and was rx'ed medications in the past for it. She details that she no longer sleeps.She reports she has a f/u appt with [facility] on 03/17/21 for potential injections.Reports current medication regimen provides moderate pain relief and allows for increased functionality. She states that her PCP is now rxing her Buspar 15mg d/t her anxiety surrounding her pain and injections. She reports he also adjusted her Gabapentin to 300mg #2tabs/3xday. She states the Imitrex helps with her headaches but does not help her ear pain. Denies side effects from current medication regimen. Tramadol ER does not cause as much fatigue as the IR does. She still uses Percocet PRN occasionally for pain flares/spikes. She inquires about her ability to work with increasing her Tramadol dosage. She is hesitant to trial medical cannabis today but inquires about if it could be helpful for her chronic pain. No other concerns today. Facial pain (comments) Leilani ferris s here for a follow up and medications refill. Left sided Facial pain persists this month, but medication does help to some extent. She feels her pain is fairly well managed at this time. She got a call from [facility] and is scheduled for trigeminal nerve block on 01/20/21. Reports increased frequency of migraines (about 4/week) which often happen at work and limits her activities. She has difficulty wearing her hair bonnet/hair bands because the pressure aggravates the migraines. She gets light and noise sensitivity during the migraine. It is primarily located in the frontal region and behind the eyes. She also reports increased random episodes of fatigue which cause her body and functioning to shut down and has to take naps when she gets home after work, onset 2 weeks ago.Reports significant relief from left GT bursa injection on 12/22/20.Reports current medication regimen provides moderate pain relief and allows for increased functionality. Denies side effects from current medication regimen. Tramadol ER does not cause as much fatigue as the IR does. She still uses percocet (previous rx) PRN occasionally for pain flares/spikes.No other concerns today. Facial pain The problem has not changed. The frequency of pain is persistent. The patient reports the pain level is 5/10. The patient describes the pain as aching and sharp. Symptoms are triggered by bending, movement, prolonged positioning, sitting, stairs and twisting. Pertinent negatives include fever, nausea and vomiting. Facial pain (comments) Leilani ferris s here for a follow up. Facial pain persists this month. She feels her pain is not well managed at this time. She has had frustration with the scheduling the microvascular decompression at [facility] and requests referral elsewhere. She has not tried the tramadol yet, but plans to today since it is her day off. Left hip GT bursa is scheduled for 12/13/20 and she is looking forward to it. No other concerns today. Facial pain The problem has fluctuating. The frequency of pain is persistent. The patient reports the pain level is 10/10. The patient describes the pain as aching, tingling and sharp. Symptoms are triggered by bending and prolonged positioning. Pertinent negatives include fever, nausea and vomiting. left hip pain (comments) Left hi p pain persists. She has been working double shifts from 9AM to 11PM which has aggravated the pain. She is following up at [facility] for ultrasound concerning leg swelling today. left hip pain Duration chronic . Location of pain is left. Pertinent negatives include fever. Facial pain (comments) Leilani ferris s here for a followup after initial consult. Facial pain persists. She is scheduled for a surgical consult at [facility] for possible microscopic decompression surgery on 12/05/20.[facility] notes reviewed - pt started on Carbamezapine ER with improvement in pain. There was discussion of Rhizotomy of the trigeminal nerve. 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 Vasquez did not recommend surgical intervention.[facility] notes reviewed - TMJ dysfunction [facility], self care and PT recommended. 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 Facial pain The problem has fluctuating. The frequency of pain is persistent. The patient reports the pain level is 10/10. The patient describes the pain as aching, tingling and sharp. Symptoms are triggered by bending, prolonged positioning, standing and talking. Pertinent negatives include fever, nausea and vomiting. facial pain (comments) Leilani ferris s here for an initial consult and presents with facial pain, initial onset several years ago. 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 Her neurologist at [facility] confirmed and dx'ed the tumor through imaging. Her pain is triggered by light touch including wind and brushing her teeth. She has polyarthralgia with negative rheumatological work up. Per records, there is no clear dx for her facial pain. Currently working with dentist for TMJ s/s , she has been PT multiple times without improvement. She has seen a neurologist at [facility] without any better explanation of her facial pain. The neurologist ordered fascial PT at [facility] (starts 12/01/20) and referred her to [facility] for surgical consult. She has been in and out of the ER due to the uncontrolled pain.She reports secondary pain in her left hip which affects her gait. The pain is located on the outside and radiates towards the inside. She has tried PT at [facility] in [place] for the hip with no benefit. She is scheduled for an ultrasound of the hip edema next week.Referred by PCP.Treatment Tried:tegretolCarbamazepinegabapentinCymbalta percocet PRN - helpful but causes fatigue.tramadol 50mg BID - helpful but causes fatigue.[facility].Pt goal: [facility] to take over pain management. facial pain The frequency of pain is persistent. The patient reports the pain level is 10/10. Location of pain is bilateral lower face, bilateral jaw, left hip and left leg. The patient describes the pain as aching, burning, stabbing and numbness. Symptoms are triggered by bending, changing positions, supine, movement, sitting, stairs, standing and twisting. Pertinent negatives include fever. Functional Status Date Functional Assessmen t No Information Instructions Date Instruction Additional Infor mation No Information Assessments Type Assessment Date No Information Patient Care Teams Name Effective Dates (start - stop) Status Members No Information
--- OUTSIDE RECORDS SUMMARY | 2021-11-10 05:20 | XMS_ITS | Continuity of Care Document ---
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 [address] [place], [place], [id number] , [place]. tel: [phone] OFFICE/OUTPA TIENT VISIT, [facility], [address] [place], [place], [id number] , [place] tel: [phone] [facility] [place] Facial Pain (chief complaint) Anxiety disorder, unspecifiedChronic migraine without aura, intractable, without status migrainosusTrigemi nal neuralgiaPain in right kneePain in left kneeUnspecified temporomandibular joint disorder, unspecified sideTrochanteric bursitis, left hipFatigueLong term (current) use of opiate analgesicOther fdc (current) drug therapyChronic pain syndrome Aug- 2 Saunders Williams. [facility] [employer], [address], [place], [address], [place]. tel:[phone] Referring Provider: [facility] [address], [place], [address]. tel:[phone] OFFICE/OUTPA TIENT VISIT, [facility], [address], [place], [id number] , [place] tel: [phone] [facility] Facial pain (chief complaint) Unspecified temporomandibular joint disorder, unspecified sideTrochanteric bursitis, left hipLong term (current) use of opiate analgesicChronic pain syndromeChronic migraine without aura, intractable, without status migrainosusAnxiety disorder, unspecifiedOther local intermodal truck driver (current) drug therapyPain in right kneePain in left kneeTrigeminal neuralgiaFatigue 2 Saunders Williams. [facility] [employer], [address], [place], [address], [place]. [phone] Referring Provider: [facility] [address], [place], [address]. [phone] [facility], [address], [place], [id number] , [place] tel:[phone] [facility] Pain in right kneePain in left knee 2 Saunders Williams. [facility], [address], [place], [address], [place]. tel: [phone] Referring Provider: Denton Wang [facility] [address], [place], [address]. tel:[phone] [facility], [address], [place], [id number] , [place] tel: [phone] [facility] Unspecified temporomandibular joint disorder, unspecified side 2 Saundersgrisel Kramer. [facility], [address], [place], [address], [place]. tel: [phone] Referring Provider: Denton Wang [facility] [address], [place], [address]. tel:[phone] OFFICE/OUTPA TIENT VISIT, [facility], [address], [place], [id number] , [place] tel: [phone] [facility] Facial pain (chief complaint) Unspecified temporomandibular joint disorder, unspecified sideTrochanteric bursitis, left hipLong term (current) use of opiate analgesicChronic pain syndromeChronic migraine without aura, intractable, without status migrainosusAnxiety disorder, unspecifiedOther local intermodal truck driver (current) drug therapyPain in right kneePain in left kneeTrigeminal neuralgia 2 Nyongesa Krupa. [address], [place], [place], [id number] , [place]. tel: [phone] Referring Provider: Denton Wang [facility] [address], [place], [address]. tel:[phone] [facility], [address] [place] [address], [id number] , [place] tel: [phone] [facility] No Information 2 Nyongesa Krupa. [address], [place], [place], [id number] , [place]. tel: [phone] Referring Provider: Omar Ferrera, [address] [place], [address]. tel:[phone] OFFICE/OUTPA TIENT VISIT, [facility], [address] [place], [id number] , [place] tel:[phone] [facility] Facial pain (chief complaint) Unspecified temporomandibular joint disorder, unspecified sideTrochanteric bursitis, left hipLong term (current) use of opiate analgesicChronic pain syndromeChronic migraine without aura, intractable, without status migrainosusAnxiety disorder, unspecifiedOther local intermodal truck driver (current) drug therapyPain in right kneePain in left kneeTrigeminal neuralgiaEncounter for therapeutic drug level monitoring 2 Heathersa Krupa. [address], [place], [id number] , [place]. tel:[phone] Referring Provider: Denton Wang [facility] [address], [place], [address]. [phone] [facility], [address] [place] [address] , [place] tel:[phone] [facility] No Information 2 Nyaguilar Krupa. [address] [facility] [address], [place], [id number] , [place]. tel:[phone] OFFICE/OUTPA TIENT VISIT, [facility], [address] [place], [id number] , [place] tel:[phone] [facility] Facial pain (chief complaint) Unspecified temporomandibular joint disorder, unspecified sideTrochanteric bursitis, left hipLong term (current) use of opiate analgesicChronic pain syndromeChronic migraine without aura, intractable, without status migrainosusAnxiety disorder, unspecifiedOther local intermodal truck driver (current) drug therapyPain in right kneePain in left kneeTrigeminal neuralgia 2 Nyongesa Krupa. [address] [facility] [address], [place], [id number] , [place]. tel:[phone] Referring Provider: [facility] [address], [place], [address]. tel:[phone] [facility], [address], [place], [id number] , [place] [phone] [facility] Unspecified temporomandibular joint disorder, unspecified side 2 Saunders Williams. [facility], [address], [place], [address], [place]. tel:[phone] Referring Provider: [facility] [address], [place], [address]. [phone] [facility], [address] [place] [address], [id number] , [place] [phone] [facility] Trochanteric bursitis, left hip 1 Saunders Williams. [facility], [address], [place], [address], [place]. tel:[phone] Referring Provider: [facility] [address], [place], [address]. [phone] [facility], [address] [place] [address], [id number] , [place] [phone] [facility] [place] No Information 1 Dorothy Gentile. [address] [place] [address] Rd [address], [place], [place], [id number] , [place]. tel:[phone] OFFICE/OUTPA TIENT VISIT, [facility], [address], [place], [address] , [place] tel:[phone] [facility] [place] Facial pain (chief complaint) TMJ disorderLong term (current) use of opiate analgesicTrochante stephanie bursitis, left hipChronic pain syndromeAnxiety disorder, unspecifiedChronic migraine without aura, intractable, without status migrainosusTrigemi nal neuralgiaOther fdc (current) drug therapyPain in right kneePain in left kneeEncounter for therapeutic drug level monitoring 1 Dorothy Gentile. [address] [facility] [address], [place], [place], [id number] , [place]. tel: [phone] Referring Provider: Denton Wang [facility] [address], [place], [address]. tel:[phone] OFFICE/OUTPA TIENT VISIT, [facility], [address], [place], [id number] , [place] tel: [phone] [facility] Facial pain (chief complaint) Trigeminal neuralgiaTMJ disorderLong term (current) use of opiate analgesicTrochante stephanie bursitis, left hipChronic pain syndromeFacial pain NOSAnxiety disorder, unspecifiedChronic migraine without aura, intractable, without status migrainosus 1 Chip Kramer. [facility], [address], [place], [address], [place]. tel: [phone] Referring Provider: Denton Wang [facility] [address], [place], [address]. tel:[phone] [facility], [address], [place], [id number] , [place] tel: [phone] [facility] Facial pain (chief complaint) Chronic migraine without aura, intractable, without status migrainosusTrigemi nal neuralgiaTMJ disorderLong term (current) use of opiate analgesicTrochante stephanie bursitis, left hipChronic pain syndromeFacial pain NOSAnxiety disorder, unspecifiedOther local intermodal truck driver (current) drug therapy 1 Dorothy Gentile. [address] [facility] [address], [place], [id number] , [place]. tel: [phone] Referring Provider: Denton Wang [facility] [address], [place], [address]. tel:[phone] OFFICE/OUTPA TIENT VISIT, [facility], [address], [place], [id number] , [place] tel: [phone] [facility] Facial pain (chief complaint) Chronic migraine without aura, intractable, without status migrainosusTrigemi nal neuralgiaTMJ disorderLong term (current) use of opiate analgesicTrochante stephanie bursitis, left hipChronic pain syndromeFacial pain NOS 1 Dorothy Gentile. [address] [facility] [address], [place], [id number] , [place]. tel: [phone] Referring Provider: Denton Wang [facility] [address], [place], [address]. tel:[phone] [facility], [address], [place], [id number] , [place] tel: [phone] [facility] Trochanteric bursitis, left hip 1 [facility], [address], [place], [address], [place]. tel: [phone] Referring Provider: Dneton Wang [facility] [address], [place], [address]. tel:[phone] OFFICE/OUTPA TIENT VISIT, [facility], [address] [place] [address], [id number] , [place] tel: [phone] [facility] Facial pain (chief complaint) Chronic migraine without aura, intractable, without status migrainosusTrigemi nal neuralgiaTMJ disorderLong term (current) use of opiate analgesicTrochante stephanie bursitis, left hipChronic pain syndromeFacial pain NOS 1 Dorothy Gentile. [address] [facility] [address], [place], [id number] , [place]. tel: [phone] Referring Provider: Denton Wang [facility] [address], [place], [address]. tel:[phone] OFFICE/OUTPA TIENT VISIT, [facility], [address], [place], [id number] , [place] tel: [phone] [facility] Facial pain (chief complaint) left hip pain (chief complaint) Chronic migraine without aura, intractable, without status migrainosusTrigemi nal neuralgiaTMJ disorderLong term (current) use of opiate analgesicTrochante stephanie bursitis, left hipChronic pain syndromeFacial pain NOS Arnaud-0 1 Dorothy Gentile. [address], [place], [id number] , [place]. tel:[phone] Referring Provider: [facility] [address], [place], [address]. tel:[phone] [facility], [address] [place] [address], [id number] , [place] tel:[phone] [facility] [place] No Information 1 Dorothy Gentile. [address], [place], [id number] , [place]. tel:[phone] Referring Provider: Omar Ferrera, [address] [place], [address]. tel:[phone] OFFICE/OUTPA TIENT VISIT, [facility], [address], [place], [id number] , [place] tel:[phone] [facility] facial pain (chief complaint) Chronic pain syndromeEncounter for screening for other disorderFacial pain NOSTrigeminal neuralgiaTMJ disorderLong term (current) use of opiate analgesicEncounter for therapeutic drug level monitoringTrochant gely bursitis, left hipChronic migraine without aura, intractable, without status migrainosus 1 Dorothy Gentile. [address], [place], [id number] , [place]. tel:[phone] Referring Provider: [facility] [address], [place], [address]. tel:[phone] Family History Family Member Type Diagnosis Age At Onset Problem Family history of chronic pa in Payers Payer name Insurance type Covered alliance party ID Dee lovelace(s) [facility] [id number] Social History Type Description Quantity Date [...] Social History. 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 Due on due Goal OARS. Due on due Goal Order Annual PT. Due on due Goal UDT. Due on due Goal LAY OUT MAKER Paperwork. Due on due Goal ALT (SGPT). Due on due Goal AST (SGOT). Due on due Goal Creatinine. Due on due Goal Weight. Due on d ue Goal AST (SGOT). Due on due Goal Creatinine. 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 Due on due Goal UDT. Due on due Goal LAY OUT MAKER Paperwork. Due on due Goal OARS. Due on due Goal ALT (SGPT). Due on due Goal Order Annual PT. Due on due Goal Medication Reconciliation. D ue on due Goal Review Allergy List. Due on due Goal Tobacco Use. Due on due Goal PHQ-9. Due on du e Goal Height. Due on d ue Goal Update Social History. Due o n due Goal Creatinine. 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 Due on due Goal UDT. Due on due Goal LAY OUT MAKER Paperwork. Due on due Goal OARS. Due on due Goal ALT (SGPT). Due on due Goal Order Annual PT. Due on due Goal Medication Reconciliation. D ue on due Goal Review Allergy List. Due on due Goal Tobacco Use. Due on due Goal AST (SGOT). Due on due Goal PHQ-9. Due on du e Goal Height. Due on d ue Goal Update Social History. Due o n due Goal Weight. Due on d ue Goal AST (SGOT). Due on due Goal Creatinine. 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 Due on due Goal UDT. Due on due Goal LAY OUT MAKER Paperwork. Due on due Goal OARS. Due [...] Goal Weight. Due on d ue Goal Order Annual PT. Due on due [...] due Goal Creatinine. 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 Due on due Goal UDT. Due on due Goal LAY OUT MAKER Paperwork. Due on due Goal OARS. Due on due Goal PHQ-9. Due on du e Goal Height. Due on d ue Goal Update Social History. Due o n due Goal Weight. Due on d ue Goal AST (SGOT). Due on due Goal Creatinine. 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 Due on due Goal UDT. Due on due Goal LAY OUT MAKER Paperwork. Due on due Goal OARS. Due on due Goal ALT (SGPT). Due on due Goal Order Annual PT. Due on due Goal Medication Reconciliation. D ue on due Goal Review Allergy List. Due on due Goal Tobacco Use. Due on due Goal Tobacco Use. Due on due Goal PHQ-9. Due on du e Goal Height. Due on d ue Goal Update Social History. Due o n due Goal Weight. Due on d ue Goal ALT (SGPT). Due on due Goal Order Annual PT. Due on due Goal Medication Reconciliation. D ue on due Goal Review Allergy List. Due on due Goal AST (SGOT). Due on due Goal Creatinine. 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 Due on due Goal UDT. Due on due Goal LAY OUT MAKER Paperwork. Due on due Goal OARS. Due on due Goal UDT. Due on due Goal LAY OUT MAKER Paperwork. Due on due Goal OARS. Due [...] due Goal Creatinine. 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 Due on due Goal UDT. Due on due Goal LAY OUT MAKER Paperwork. Due on due Goal OARS. Due [...] due Goal Creatinine. 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 Due on due Goal Review Allergy List. Due on due Goal Tobacco Use. Due on due Goal PHQ-9. Due on du e Goal Height. Due on d ue Goal Update Social History. Due o n due Goal Medication Reconciliation. D ue on due Goal LAY OUT MAKER Paperwork. Due on due Goal OARS. Due on due Goal ALT (SGPT). Due on due Goal Order Annual PT. Due on due Goal Weight. Due on d ue Goal AST (SGOT). Due on due Goal Creatinine. 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 Due on due Goal UDT. Due on due Goal ALT (SGPT). Due on due Goal OARS. Due on due Goal LAY OUT MAKER Paperwork. Due on due Goal UDT. 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 Due on due Goal Creatinine. Due on due Goal AST (SGOT). Due on due Goal Order Annual PT. Due on due Goal Weight. Due on d ue Goal Medication Reconciliation. D ue on due Goal Review Allergy List. Due on due Goal Tobacco Use. Due on due Goal PHQ-9. Due on du e Goal Height. Due on d ue Goal Update Social History. Due o n due Goal LAY OUT MAKER Paperwork. Due on due Goal Tobacco Use. Due on due Goal PHQ-9. Due on du e Goal Height. Due on d ue Goal Update Social History. Due o n due Goal AST (SGOT). Due on due Goal Creatinine. 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 Due on due Goal OARS. Due on due Goal ALT (SGPT). Due on due Goal Order Annual PT. Due on due Goal Weight. Due on d ue Goal Medication Reconciliation. D ue on due Goal Review Allergy List. Due on due Goal UDT. Due on due Goal Height. Due on d ue Goal Update Social History. Due o n due Goal LAY OUT MAKER Paperwork. Due on due Goal OARS. Due on due Goal ALT (SGPT). Due on due Goal Order Annual PT. Due on due Goal Weight. Due on d ue Goal AST (SGOT). Due on due Goal Creatinine. 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 Due on due Goal UDT. Due on due Goal Medication Reconciliation. D ue on due Goal Review Allergy List. Due on due Goal Tobacco Use. Due on due Goal PHQ-9. Due on du e Goal Creatinine. 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 Due on due Goal UDT. Due on due Goal LAY OUT MAKER Paperwork. Due on due Goal OARS. Due [...] Goal AST (SGOT). Due on due Goal Order Annual PT. Due on due Goal Weight. Due on d ue Goal Medication Reconciliation. D ue on due Goal Review Allergy List. Due on due Goal Tobacco Use. Due on due Goal PHQ-9. Due on du e Goal Height. Due on d ue Goal Update Social History. Due o n due Goal OARS. Due on due Goal ALT (SGPT). Due on due Goal AST (SGOT). Due on due Goal Creatinine. 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 Due on due Goal UDT. Due on due Goal LAY OUT MAKER Paperwork. Due on due Goal AST (SGOT). Due on due Goal Creatinine. Due on due Goal OARS. Due on due Goal ALT (SGPT). Due on due Goal Order Annual PT. 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 Due on due Goal UDT. Due on due Goal LAY OUT MAKER Paperwork. Due on due Goal Weight. Due on [...] starting to hurt again.She was referred to [facility] but did not want to go as [...] and vomiting. Facial pain The problem has Fluctuating. The [...] and progressively worsening. Blood work done at [facility] yesterday shows everything is fine per her [...] states she takes Lasix for this. At [facility] she stated she has not received a [...] for trigeminal neuralgia was not recommended by [place].She states that she would only be comfortable seeing an -Belgian therapist.She is scheduled for a Left GT [...] for trigeminal neuralgia was not recommended by [place]. Current pain flare starts at left TMJ [...] reports she has a f/u appt with [facility] on 03/17/21 for potential injections.Reports current medication [...] this time. She got a call from [facility] and is scheduled for trigeminal nerve block [...] with the scheduling the microvascular decompression at [facility] and requests referral elsewhere. She has [...] is scheduled for a surgical consult at [facility] for possible microscopic decompression surgery on 12/05/20.[facility] notes reviewed - pt started on Carbamezapine ER with improvement in pain. There was discussion of Rhizotomy of the trigeminal nerve. 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 Vasquez did not recommend surgical intervention.[facility] notes reviewed - TMJ dysfunction [facility], self care and PT recommended. 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 left hip pain Duration chronic . Location of pain is left. Pertinent negatives include fever. left hip pain (comments) Left hi p pain persists. She has been working double shifts from 9AM to 11PM which has aggravated the pain. She is following up at [facility] for ultrasound concerning leg swelling today. facial pain The frequency of pain [...] result in trigeminal neuralgia. Her neurologist at [facility] confirmed and dx'ed the tumor through imaging. Her pain is triggered by light touch including wind and brushing her teeth. She has polyarthralgia with negative rheumatological work up. Per records, there is no clear dx for her facial pain. Currently working with dentist for TMJ s/s , she has been PT multiple times without improvement. She has seen a neurologist at [facility] without any better explanation of her facial pain. The neurologist ordered fascial PT at [facility] (starts 12/01/20) and referred her to [facility] for surgical consult. She has been in and out of the ER due to the uncontrolled pain.She reports secondary pain in her left hip which affects her gait. The pain is located on the outside and radiates towards the inside. [facility] has [facility] [place] [facility] the hip with no benefit. She is scheduled for an ultrasound of the hip edema next week.Referred by PCP.Treatment Tried:tegretolCarbamazepinegabapentinCymbalta percocet PRN - helpful but causes fatigue.tramadol 50mg BID - helpful but causes fatigue.[facility]Pt goal: [facility] to take over pain management. Functional Status Date Functional Assessmen t No Information Instructions Date Instruction Additional Infor mation No Information Assessments Type Assessment Date No Information Patient Care Teams Name Effective Dates (start - stop) Status Members No Information
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
--- OUTSIDE RECORDS SUMMARY | 2024-11-23 02:31 | XMS_ITS | Encounter Summary ---
Author Organization [facility] Address [address] [place] [address] Care Team Providers Care Human Resources Analyst Name Role Phone Meghna Potter MD Primary Care P rovider No Ref-Primary, Physician Primary Care Provider Meghna Potter MD Unavailable Omar Spicer MD Unavailable Roger Moseley DDS Unavailable [phone] Omar Spicer MD Unavailable Reason for Visit * Reason Onset Date Comments Results 04/12/2010 labs Encounter Details Date Type Department Care Team (Late st Contact Info) Description 04/12/2010 Telephone [facility] [address] [address] Julia Arshad MD [place] [address] [place] [address] Results (labs ) Social History [...] on file 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 No / Unsure 10/10/2020 2:03 AM CDT documented as of this encounter Miscellaneous Notes [...] on filedocumented in this encounter Care Teams Human Resources Analyst Relationship Specialty [place] [address] [address] [phone] PCP - General Family Practice 08/26/09 05/04/18 No Ref-Primary, Physician PCP - General 05/05/18 [place] [address] [address] [phone] Family Practice 05/05/18 Omar Spiecr MD [address] [id number] [place] [address] Neurological Surgery 11/18/20 Roger Moseley DDS [place] [facility] 3475 [facility] 200 [place] [address] Referring Physician Dentist 11/18/20 Omar Spicer MD [address] [id number] [place] [address] Assigned Neuroscience Provider 12/18/20 11/23/22 documented as of this encounter
--- OUTSIDE RECORDS SUMMARY | 2024-11-23 02:31 | XMS_ITS | Clinical Summary ---
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 Gender Identity Not on file Sexual [...] Plan of Treatment Not on file Insurance [facility] [place] * Guarantor: Leilani Lundy Account Type Relation to Patient Date of Phone Billing Address Medication Therapy Self [address] [address] [place] Care Teams Amusement Ride Operator Relationship Specialty Start Date End Date No Ref-Primary, Physician PCP - General 05/05/18 [place] [address] [place] [address] Family Practice 05/05/18 Omar Spicer MD 909 [id number] [place] [address] Neurological Surgery 11/18/20 Roger Moseley DDS [place] [facility]5 [facility] 200 [place] [address] Referring Physician Dentist 11/18/20
--- OUTSIDE RECORDS SUMMARY | 2024-11-23 02:31 | XMS_ITS | Encounter Summary ---
Author Organization [facility] Address [address] [facility] [place] [address] Care Team Providers Care Water Pumping Station Engineer Name Role Phone Meghna Potter MD Primary Care P rovider No Ref-Primary, Physician Primary Care Provider Meghna Potter MD Unavailable Omar Spicer MD Unavailable [phone] Roger Moseley DDS Unavailable [phone] Omar Spicer MD Unavailable [phone] Encounter Details Date Type Department Care Team (Late st Contact Info) Description 08/31/2010 MyC Medical Advice Initial Department [facility] Social History Tobacco Use Types Packs/Day Years Used Date Smoking Tobacco: Never Comments:no second hand smok e Alcohol Use Standard Drinks/Week Comments Yes 0 (1 standard drink = 0.6 oz pur e alcohol) socialy Comments No Sex and Gender Information Value Date Recorded Sex Assigned at Not on file 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 Sex Female 4:57 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 CONSERVATOR Gender Identity Not on file Sexual Orientation Not on file 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 on file documented as of this encounter Plan of Treatment Not on file documented as of this encounter Visit Diagnoses Not on filedocumented in this encounter Care Teams Water Pumping Station Engineer Relationship Specialty [place] [address] [address] [address] PCP - General Family Practice 08/26/09 05/04/18 No Ref-Primary, Physician PCP - General 05/05/18 [place] [address] [address] [phone] Family Practice 05/05/18 Omar Spicer MD [address] [address] Neurological Surgery 11/18/20 Roger Moseley DDS [place] [facility] 3475 [facility] 200 [place] [address] Referring Physician Dentist 11/18/20 Omar Spicer MD [address] [address] Assigned Neuroscience Provider 12/18/20 11/23/22 documented as of this encounter
--- OUTSIDE RECORDS SUMMARY | 2024-11-23 02:31 | XMS_ITS | Encounter Summary ---
Author Organization [facility] Address [address] [place] [address] Care Team Providers Care Clinical Radiologist Name Role Phone Meghna Potter MD Primary Care P rovider No Ref-Primary, Physician Primary Care Provider Meghna Potter MD Unavailable Omar Spicer MD Unavailable Roger Moseley DDS Unavailable [phone] Oamr Spicer MD Unavailable [phone] Reason for Visit * Reason Onset Date Comments Medication Request 03/19/2011 Encounter Details Date Type Department Care Team (Late st Contact Info) Description 03/19/[address] [address] Aminata Singh PA-C [facility] [address] [facility] 300 [place] [address] Medication Request Social History Tobacco Use [...] on file Legal Sex Female 4:57 AM RESIDENTIAL SUPPORT SPECIALIST Gender Identity Not on file Sexual [...] 03/19/2011 9:36 AM CDT Pt seen in UC on 03/15/11 for lesion on pubis area. Will forward to provider to advise. Estefany Wilkerson RN * Telephone Encounter - Christin Bunch - 03/19/2011 8:04 AM CDT Please call Leilani at [phone] anytime or leave message re; received an Rx for Aldara 5% cream(02-22 and again 03-16/)and she is requesting a pill form instead due to her work schedule(difficult to apply-pills would be much easier). [facility] - didn' have # Thank you documented in this encounter Plan of Treatment Not on file documented as of this encounter Visit Diagnoses Diagnosis BV (bacterial vaginosis)- Primary Vaginitis and vulvovaginitis, unspecified documented in this encounter Care Teams Clinical Radiologist Relationship Specialty [place] [address] [place] [phone] PCP - General Family Practice 08/26/09 05/04/18 No Ref-Primary, Physician PCP - General 05/05/18 [place] [address] [place] [address] Family Practice 05/05/18 Omar Spicer MD [address], [place] [address] Neurological Surgery 11/18/20 Roger Moseley DDS [facility] 3475 [facility] 200 [place] [address] Referring Physician Dentist 11/18/20 Omar Spicer MD [address] [place] [address] Assigned Neuroscience Provider 12/18/20 11/23/22 documented as of this encounter
[2024-11-23 02:37] VITALS: BP 105/76; PULSE 63; RESP 16; TEMP 36.7; O2SAT 98; BMI 27.5
--- NOTE | 2024-11-23 03:03 | ED_ITS ---
HPI - General Adult General Chief complaint: Nausea/Vomiting Stated complaint: chest blockage and nerve pain Time Seen by Provider: 11/23/24 03:03 History of Present Illness HPI narrative: states started having phlegm vomit this afternoon that has progressed to facial nerve pain. pt states she has a blockage in her esophagus and she gets that occasionally since her gastric bypass in her 20s. states it usually passes on its own but hasnt passed yet tonight. pt denies getting food stuck, states it just started out of no where. denies SOB, CP, c/d. -Date of Onset of Symptoms 49-year-old woman presenting to the emergency department with concern of blockage or discomfort of some sort in her esophagus. This has occurred intermittently since gastric bypass when she was in 20s. She seems to indicate initially that this had occurred today spontaneously but with further questioning following cheondoism I believe had a small sandwich and felt like something got stock. She seems to mention that bread can do this. Since gastric bypass occasionally sounds like has some difficulty passing foods in her esophagus. She had been doing some vomiting this afternoon. She is not getting better and then seems to have triggered her trigeminal neuralgia. Upon review of records, does have a diagnosis of left-sided trigeminal neuralgia. Has never had an EGD. Related Data Previous Rx's ?Medication ?Instructions ?Recorded duloxetine 30 mg capsule,delayed 30 mg PO BID #180 cap s 06/09/24 release nortriptyline 50 mg capsule 50 mg PO QHS #90 caps 05/24 01/14 topiramate 25 mg tablet (Topamax) 25 mg PO QHS #30 tab s 06/09/24 cholecalciferol (vitamin D3) 1,250 1,250 mcg PO QWEEK #12 caps 06/10/24 mcg (50,000 unit) capsule carbamazepine 200 mg 200 mg PO BID PRN trigeminal 08/05/24 capsule,extended release [id number] neuralgia #30 caps Allergies Allergy/AdvReac Type Severity Reaction Status Date / Time ibuprofen Allergy Mild unable to Verified 11/23/24 02:42 tolerate due to gastric bypass hx Review of Systems Status of ROS: Reports: 6 or more systems reviewed and unremarkable except as noted in History and below [facility] Medical History Grief ?F43.21 - Adjustment disorder with depressed mood (ICD-10) History of temporomandibular joint disorder ?Z87.39 - Personal history of other diseases of the musculoskeletal system and connective tissue (ICD-10) History of anemia ?Z86.2 - Personal history of diseases of the blood and blood-forming organs and certain disorders involving the immune mechanism (ICD-10) Surgical History History of hysterectomy ?Z90.710 - Acquired absence of both cervix and uterus (ICD-10) History of gastric bypass ?Z98.84 - Bariatric surgery status (ICD-10) History of section ?Z98.891 - History of uterine scar from previous surgery (ICD-10) Family History Father Diabetes Leukemia Family/Other Heart disease Other Kidney disease Stroke Social History Narrative: nonsmoker What is your current living situation?: I presently have a place to live Problems where you live: no known problems In the past 12 months, utilities in danger of being shut off: no In past 12 months, lack of transportation kept you from medical appts, meetings, work, or getting things needed for daily living: no In the past 12 mos, have been you worried that your food would run out before you had money to buy more?: never true In the past 12 mos, the food you bought just didn't last and you didn't have money to buy more?: never true Smoking Status: Never smoker Do you use any of these nicotine containing products: None Second hand tobacco smoke exposure: No How often do you have a drink containing alcohol: monthly or less AUDIT-C Alcohol total score: 1 Non-prescribed substance use: denies use How often does anyone, including family, friends and others, physically hurt you : never How often does anyone, including family, friends and others, insult or talk down to you: never How often does anyone, including family, friends and others, threaten you with harm: never How often does anyone, including family, friends and others, scream or curse at you: never service: No Exam Narrative: Exam Narrative: Pleasant. NAD. Is a little uncomfortable though. Breathing easily. Lungs are clear. Abdomen soft nontender. Gestures repeatedly to the midsternal area as source of discomfort. Oropharynx is unremarkable. Const: Vital Signs, click to edit/add: Vital Signs - 24 hr 11/23/24 02:37 11/23/24 04:11 11/23/24 04:11 Temperature 98.0 F Pulse Rate [Pulse Oximeter] 63 58 L Respiratory Rate 16 16 Blood Pressure [Ri ght Upper Arm] 105/76 Pulse Oximetry 98 94 94 Oxygen Delivery Me thod Room Air Room Air 11/23/24 04:58 11/23/24 05:35 11/23/24 06:03 Temperature Pulse Rate [Pulse Oximeter] 58 L 68 Respiratory Rate 16 16 Blood Pressure [Ri ght Upper Arm] 101/73 91/65 94/63 Pulse Oximetry 99 99 Oxygen Delivery Me thod Room Air Room Air Room Air Documenting provider has reviewed patient's vital signs: yes Course Vital Signs Vital signs: Initial Vital Signs Temperature 98.0 F 11/23/24 02:37 Temperature Source Temporal Artery Scan 11/23/24 02:37 Pulse Rate 63 11/23/24 02:37 Respiratory Rate 16 11/23/24 02:37 Blood Pressure 105/76 11/23/24 02:37 Blood Pressure Mean 85 11/23/24 02:37 Blood Pressure Position Sitting 11/23/24 02:37 Pulse Oximetry 98 11/23/24 02:37 Oxygen Delivery Method Room Air 11/23/24 02:37 Vital Signs Temperature 98.0 F 11/23/24 02:37 Pulse Rate 63 11/23/24 02:37 Respiratory Rate 16 11/23/24 02:37 Blood Pressure 105/76 11/23/24 02:37 Pulse Oximetry 98 11/23/24 02:37 Oxygen Delivery Method Room Air 11/23/24 02:37 Temperature 98.0 F 11/23/24 02:37 Pulse Rate 68 11/23/24 06:03 Respiratory Rate 16 11/23/24 06:03 Blood Pressure 94/63 11/23/24 06:03 Pulse Oximetry 99 11/23/24 06:03 Oxygen Delivery Method Room Air 11/23/24 06:03 Medications Administered Medications: Discontinued Medications Generic Name Dose Route Start Last Admin Trade Name Freq PRN Reason Stop Dose Admin Diazepam 5 mg 11/23/24 03:15 11/23/24 03:51 Diazepam 5 Mg/Ml Inj IV 11/23/24 03:16 5 mg ONCE ONE Administration Sodium Chloride 1,000 mls @ 1,000 mls/hr 11/23/24 03:15 11/23/24 04:57 0.9 % Sodium Chloride 1000 Ml IV 11/23/24 04:14 Infused .Q1H ONE Infusion Morphine Sulfate 4 mg 11/23/24 03:15 11/23/24 03:52 Morphine 4 Mg/Ml Inj IVP 11/23/24 03:16 4 mg ONCE ONE Administration Nitroglycerin 0.4 mg 11/23/24 05:31 11/23/24 05:34 Nitroglycerin 0.4 Mg Tab.Subl SUBLINGUAL 11/23/24 05:32 0.4 mg ONCE ONE Administration Ondansetron HCl 4 mg 11/23/24 03:15 11/23/24 03:52 Ondansetron 2 Mg/Ml Inj IVP 11/23/24 03:16 4 mg ONCE ONE Administration Medical Decision Making MDM Narrative Medical decision making narrative: Has demonstrated ability to drink and maintain a little water but very uncomfortably. Discussed options for treatment for her. I would focus somewhat on relaxation. IV was initiated. Given L normal saline, diazepam, Zofran and some morphine. Was able to rest and appeared improved with fluid intake but still with discomfort and attempted challenge more solid food, ordered for dose of nitroglycerin. Did tolerate Jell-O. Did not think she should proceed beyond this at the moment noting that she perceives some degree of irritation; wanted a slower advanced of diet at this point. Has been well over time of monitoring in the emergency department. Stable vitals. Overall improved. See patient discharge plan for further discussion Take it easy diet-zuniga over today. Just liquids or smoothies or maybe ice cream. I would like you though to follow-up with your primary care provider somehow had to consider further evaluation which may include an upper endoscopy. Return as needed. Was a pleasure caring for you today. Medical Records Medical records reviewed: Yes I reviewed the patient's medical records Lab Data Labs: Lab Results 11/23/24 11/23/24 Range/Units 03:15 03:50 WBC 3.89 L (4.50-11.00) K/uL RBC 3.74 L (4.00-5.20) m/uL Hgb 11.1 L (12.0-16.0) gm/dL Hct 35.3 (33.0-51.0) % MCV 94 (80-100) fL MCH 30 (26-34) pg MCHC 31 L (32-36) gm/dL RDW Coeff of Tristian 13.1 (11.5-15.5) % Plt Count 158 (140-440) K/uL Neut % (Auto) 49.7 (42.0-72.0) % Lymph % (Auto) 34.4 (20-44) % Faulk % (Auto) 10.5 (0.0-11.0) % Eos % (Auto) 4.1 (0.0-7.0) % Baso % (Auto) 1.3 (0.0-3.0) % Neut # (Auto) 1.90 (1.7-7.0) K/uL Lymph # (Auto) 1.30 (0.90-2.90) K/uL Faulk # (Auto) 0.40 (0.00-0.90) K/UL Eos # (Auto) 0.20 (0.00-0.50) K/uL Baso # (Auto) 0.10 (0.00-0.30) K/uL Abs Immat Gran (auto) 0.00 (0.00-0.30) K/uL Imm/Tot Granulo (auto) 0.0 % Sodium 144 (135-149) mmol/L Potassium 4.1 (3.6-5.1) mmol/L Chloride 108 (96-114) mmol/L Carbon Dioxide 29 (20-32) mmol/L Anion Gap 7 (7-15) mEq/L BUN 10 (5-24) mg/dL Creatinine 0.7 (0.5-1.5) mg/dL Estimated Creat Clear 88.44 Estimated GFR 107 ml/min Glucose 94 (60-115) mg/dL Calcium 9.6 (8.4-10.6) mg/dL Total Bilirubin 0.9 (0.1-1.5) mg/dL Direct Bilirubin 0.4 (0.0-0.5) mg/dL AST 50 H (12-35) U/L ALT 21 (4-35) U/L Alkaline Phosphatase 34 L (40-150) U/L Troponin I 0.03 (0.01-0.04) ng/mL Total Protein 7.9 (6.0-8.3) g/dL Albumin 4.5 (3.3-5.0) g/dL POC Troponin I 0.00 L (0.01-0.04) ng/ml Discharge Plan Discharge Clinical Impression: Esophageal pain Patient Disposition: Home w/ Parent or Adult Condition: Improved Additional Instructions: Take it easy diet-zuniga over today. Just liquids or smoothies or maybe ice cream. I would like you though to follow-up with your primary care provider somehow had to consider further evaluation which may include an upper endoscopy. Return as needed. Was a pleasure caring for you today. Prescriptions: No Action duloxetine 30 mg capsule,delayed release(DR/EC) 30 mg PO BID Qty: 180 3RF nortriptyline 50 mg capsule 50 mg PO QHS Qty: 90 3RF topiramate [Topamax] 25 mg tablet 25 mg PO QHS Qty: 30 12RF carbamazepine 200 mg capsule, ER multiphase 12 hr 200 mg PO BID PRN (Reason: trigeminal neuralgia) Qty: 30 0RF cholecalciferol (vitamin D3) 1,250 mcg (50,000 unit) capsule 1,250 mcg PO QWEEK Qty: 12 0RF Follow Up/Referrals: Koki Fagan MD [Primary Care Provider, Family Practice] Stand Alone Forms: [facility] Info Instructions
[2024-11-23] MEDS: diazePAM 5 MG/ML inj IV (03:51)
[2024-11-23] MEDS: 0.9 % SODIUM CHLORIDE 1000 ml 1,000 ML IV (03:51)
[2024-11-23] MEDS: ONDANSETRON 2 MG/ML inj 4 MG IVP (03:52)
[2024-11-23] MEDS: MORPHINE 4 MG/ML INJ IVP (03:52)
[2024-11-23 04:00] LABS: Basophils Percent Auto 1.3 % (0.0-3.0); Eosinophils Percent Auto 4.1 % (0.0-7.0); Hematocrit 35.3 % (33.0-51.0); Hemoglobin* 11.1 gm/dL (12.0-16.0); Lymphocytes Percent Auto 34.4 % (20-44); Mean Corpuscular HGB Conc 31 gm/dL (32-36); Mean Corpuscular Hemoglobin 30 pg (26-34); Mean Corpuscular Volume 94 fL (80-100); Monocytes Percent Auto 10.5 % (0.0-11.0); Neutrophils Percent Auto 49.7 % (42.0-72.0); Platelet Count* 158 K/uL (140-440); RDW Coefficient of Variation % 13.1 % (11.5-15.5); Red Blood Count 3.74 m/uL (4.00-5.20); White Blood Count* 3.89 K/uL (4.50-11.00)
[2024-11-23 04:03] LABS: Slide Review Reflex No
[2024-11-23 04:11] VITALS: PULSE 58; RESP 16; O2SAT 94
[2024-11-23 04:12] LABS: Albumin* 4.5 g/dL (3.3-5.0); Chloride* 108 mmol/L (96-114); Potassium* 4.1 mmol/L (3.6-5.1); Sodium* 144 mmol/L (135-149)
[2024-11-23 04:14] LABS: Blood Urea Nitrogen* 10 mg/dL (5-24); Creatinine* 0.7 mg/dL (0.5-1.5); Est. Creatinine Clearance* 88.44; Estimated Glomerular Filt Rate 107 ml/min
[2024-11-23 04:15] LABS: Alanine Aminotransferase* 21 U/L (4-35); Alkaline Phosphatase* 34 U/L (40-150); Anion Gap 7 mEq/L (7-15); Aspartate Amino Transferase* 50 U/L (12-35); Bilirubin Direct* 0.4 mg/dL (0.0-0.5); Bilirubin Total* 0.9 mg/dL (0.1-1.5); Carbon Dioxide* 29 mmol/L (20-32); Total Protein* 7.9 g/dL (6.0-8.3)
[2024-11-23 04:16] LABS: Calcium* 9.6 mg/dL (8.4-10.6); Glucose* 94 mg/dL (60-115)
[2024-11-23 04:27] LABS: Troponin I* 0.03 ng/mL (0.01-0.04)
[2024-11-23 04:58] VITALS: BP 101/73; PULSE 58; RESP 16; O2SAT 99
[2024-11-23] MEDS: NITROGLYCERIN 0.4 MG TAB.SUBL SUBLINGUAL (05:34)
[2024-11-23 05:35] VITALS: BP 91/65
[2024-11-23 06:03] VITALS: BP 94/63; PULSE 68; RESP 16; O2SAT 99
== END 2024-11-23 06:29 | disposition home or self-care (01) ==
PROVIDERS: Emergency Provider Family Medicine; PCP Family Medicine
DX: R07.0 Pain in throat (principal); G50.0 Trigeminal neuralgia; Z98.84 Bariatric surgery status
CPT/HCPCS: 36415; 80048; 80076; 84484; 85025; 94761; 96361; 96374; 96375; 99284; A9270; J2270; J2405; J3360; J7030

== ENCOUNTER 2025-04-13 06:12 | Emergency (ER) | payer OTHER, SELFPAY ==
--- OUTSIDE RECORDS SUMMARY | 2021-08-11 05:59 | XMS_ITS | Continuity of Care Document ---
Author Organization [facility] Address [address] [place] [address] Care Team Providers Care Wheel Inspector Name Role Phone Prasanna Lan CRNA Unavailable Unavailable Procedures Procedure Date ANESTH, NERVE BLOCK/INJ ANESTH, HIP JOINT PROCEDURE Advance Directives Directive Yes / No Effective Date File Name No Information Encounters Encounter Description Practice Location Reason(s) For Visit Diagnoses Date Provider Providers Copied on Encounter [facility], [address] [place] [address], [id number], [facility] No Information 2 Riky Mims. [address] [place] [address], [id number] , . tel:[phone] Referring Provider: [facility] [address], [place], [address]. tel:[phone] [facility], [address] [place] [address], [id number], [facility] No Information 2 Susan May. [address] [facility], [place], [place], [id number] , . [phone] Referring Provider: Sujit Menon [facility] [address], [place], [address]. tel:[phone] Family History Family Member Type Diagnosis Age At Onset No Information Payers Payer name Insurance type Covered constitution party ID Authoriza tion(s) Blue Cross Blue Shield Of [facility] [id number] Social History Type Description Quantity Date Captured Comments Sex Female Smoking Status No Information Chief Complaint And Reason For Visit No Information Reason For Referral Reason For Referral No Information History Of Present Illness Encounter Date Complaint History Of Prese nt Illness No Information Functional Status Date Functional Assessmen t No Information Instructions Date Instruction Additional Infor mation No Information Assessments Type Assessment Date No Information Patient Care Teams Name Effective Dates (start - stop) Status Members No Information
--- OUTSIDE RECORDS SUMMARY | 2021-08-15 09:45 | XMS_ITS | Continuity of Care Document ---
Author Organization [facility] enter Address [address] [place] [phone] Phone Care Team Providers Care Java Analyst Name Role Phone [facility] Unavailable Unava ilable Procedures Procedure Date MAJOR [...] Diagnoses Date Provider Providers Copied on Encounter [facility], [address] [place] [address], [id number], tel:[phone] [place] [address] No Information 2 [facility]. [address] [place] [address], [id number], [place]. tel:[phone] Referring Provider: Williams Saunders [address], [place], [address]. tel:[phone] [facility], [address] [place] [address], [id number], tel:[phone] [place] [address] No Information 2 [facility]. [address] [place] [address], [id number], . tel:[phone] Referring Provider: Williams Saunders [employer] [address], [place], [address]. tel:[phone] [facility], [address] [place] [address], [id number], tel:[phone] [place] [address] No Information [facility]. [address] [place] [address], [id number], . tel:[phone] Referring Provider: Williams Saunders [employer] [address] [facility] [address], [place], [address]. tel:[phone] [facility], [address] [place] [address], [id number], tel:[phone] [place] [address] No Information [facility]. [address] [place] [address], [id number], . tel:[phone] Referring Provider: Williams Saunders [employer] [address] [facility] [address], [place], [address]. tel:[phone] [facility], [address] [place] [address], [id number], tel:[phone] [place] [address] No Information [facility]. [address] [place] [address], [id number], . tel:[phone] Referring Provider: Williams Saunders [employer] [address] [facility] [address], [place], [address]. tel:[phone] Family History Family Member Type Diagnosis Age At Onset No Information Payers Payer name Insurance type Covered alliance party ID Authoriza timiller(s) [facility] [id number] Social History Type Description Quantity Date [...]
--- OUTSIDE RECORDS SUMMARY | 2021-11-10 05:20 | XMS_ITS | Continuity of Care Document ---
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 [address] [place], [id number] , [place]. tel: [phone] OFFICE/OUTPA TIENT VISIT, [facility], [address], [place], [id number] , [place] tel: [phone] [facility] [place] Facial Pain (chief complaint) Anxiety disorder, unspecifiedChronic migraine without aura, intractable, without status migrainosusTrigemi nal neuralgiaPain in right kneePain in left kneeUnspecified temporomandibular joint disorder, unspecified sideTrochanteric bursitis, left hipFatigueLong term (current) use of opiate analgesicOther jail (current) drug therapyChronic pain syndrome Aug- 2 Saunders Williams. [facility], [address], [place], [address], [place]. tel:[phone] Referring Provider: [facility] [address], [place], [address]. tel:[phone] OFFICE/OUTPA TIENT VISIT, [facility], [address], [place], [id number] , [place] tel: [phone] [facility] Facial pain (chief complaint) Unspecified temporomandibular joint disorder, unspecified sideTrochanteric bursitis, left hipLong term (current) use of opiate analgesicChronic pain syndromeChronic migraine without aura, intractable, without status migrainosusAnxiety disorder, unspecifiedOther jail (current) drug therapyPain in right kneePain in left kneeTrigeminal neuralgiaFatigue 2 Saunders Williams. [facility], [address], [place], [address], [place]. [phone] Referring Provider: [facility] [address], [place], [address]. [phone] [facility], [address], [place], [id number] , [place] tel:[phone] [facility] Pain in right kneePain in left knee 2 Saunders Williams. [facility], [address], [place], [address], [place]. tel: [phone] Referring Provider: Denton Wang [facility] [address], [place], [address]. tel:[phone] [facility], [address], [place], [id number] , [place] tel: [phone] [facility] Unspecified temporomandibular joint disorder, unspecified side 2 Saundersgrisel Kramer. [facility], [address], [place], [address], [place]. tel: [phone] Referring Provider: Denton Wang [facility] [address], [place], [address]. tel:[phone] OFFICE/OUTPA TIENT VISIT, [facility], [address], [place], [id number] , [place] tel: [phone] [facility] Facial pain (chief complaint) Unspecified temporomandibular joint disorder, unspecified sideTrochanteric bursitis, left hipLong term (current) use of opiate analgesicChronic pain syndromeChronic migraine without aura, intractable, without status migrainosusAnxiety disorder, unspecifiedOther scheduler conveyor (current) drug therapyPain in right kneePain in left kneeTrigeminal neuralgia 2 Nyongesa Krupa. [address], [place], [place], [id number] , [place]. tel: [phone] Referring Provider: Denton Wang [facility] [address], [place], [address]. tel:[phone] [facility], [address] [place] [address], [id number] , [place] tel: [phone] [facility] No Information 2 Nyongesa Krupa. [address], [place], [place], [id number] , [place]. tel: [phone] Referring Provider: Omar Ferrera, [address] [place], [address]. tel:[phone] OFFICE/OUTPA TIENT VISIT, [facility], [address] [place], [id number] , [place] tel:[phone] [facility] Facial pain (chief complaint) Unspecified temporomandibular joint disorder, unspecified sideTrochanteric bursitis, left hipLong term (current) use of opiate analgesicChronic pain syndromeChronic migraine without aura, intractable, without status migrainosusAnxiety disorder, unspecifiedOther scheduler conveyor (current) drug therapyPain in right kneePain in left kneeTrigeminal neuralgiaEncounter for therapeutic drug level monitoring 2 Heathersa Krupa. [address], [place], [id number] , [place]. tel:[phone] Referring Provider: Denton Wang [facility] [address], [place], [address]. [phone] [facility], [address] [place], [id number] , [place] tel:[phone] [facility] No Information 2 Nyaguilar Krupa. [address] [facility] [address], [place], [id number] , [place]. tel:[phone] OFFICE/OUTPA TIENT VISIT, [facility], [address] [place], [id number] , [place] tel:[phone] [facility] Facial pain (chief complaint) Unspecified temporomandibular joint disorder, unspecified sideTrochanteric bursitis, left hipLong term (current) use of opiate analgesicChronic pain syndromeChronic migraine without aura, intractable, without status migrainosusAnxiety disorder, unspecifiedOther jail (current) drug therapyPain in right kneePain in left kneeTrigeminal neuralgia 2 Nyongesa Krupa. [address] [facility] [address], [place], [id number] , [place]. tel:[phone] Referring Provider: [facility] [address], [place], [address]. tel:[phone] [facility], [address], [place], [id number] , [place] [phone] [facility] Unspecified temporomandibular joint disorder, unspecified side 2 Saunders Williams. [facility], [address], [place], [address], [place]. tel:[phone] Referring Provider: [facility] [address], [place], [address]. [phone] [facility], [address] [place] [address], [id number] , [place] [phone] [facility] Trochanteric bursitis, left hip 1 Saunders Williams. [facility], [address], [place], [address], [place]. tel:[phone] Referring Provider: [facility] [address], [place], [address]. [phone] [facility], [address] [place] [address], [id number] , [place] [phone] [facility] [place] No Information 1 Dorothy Gentile. [address] [place] [address] [address], [place], [place], [id number] , [place]. tel:[phone] OFFICE/OUTPA TIENT VISIT, [facility], [address], [place], [id number] , [place] tel:[phone] [facility] [place] Facial pain (chief complaint) TMJ disorderLong term (current) use of opiate analgesicTrochante stephanie bursitis, left hipChronic pain syndromeAnxiety disorder, unspecifiedChronic migraine without aura, intractable, without status migrainosusTrigemi nal neuralgiaOther jail (current) drug therapyPain in right kneePain in left kneeEncounter for therapeutic drug level monitoring 1 Dorothy Gentile. [address] [facility] [address], [place], [place], [id number] , [place]. tel: [phone] Referring Provider: Denton Wang [facility] [address], [place], [address]. tel:[phone] OFFICE/OUTPA TIENT VISIT, [facility], [address], [place], [id number] , [place] tel: [phone] [facility] Facial pain (chief complaint) Trigeminal neuralgiaTMJ disorderLong term (current) use of opiate analgesicTrochante stephanie bursitis, left hipChronic pain syndromeFacial pain NOSAnxiety disorder, unspecifiedChronic migraine without aura, intractable, without status migrainosus 1 Chip Kramer. [facility], [address], [place], [address], [place]. tel: [phone] Referring Provider: Denton Wang [facility] [address], [place], [address]. tel:[phone] [facility], [address], [place], [id number] , [place] tel: [phone] [facility] Facial pain (chief complaint) Chronic migraine without aura, intractable, without status migrainosusTrigemi nal neuralgiaTMJ disorderLong term (current) use of opiate analgesicTrochante stephanie bursitis, left hipChronic pain syndromeFacial pain NOSAnxiety disorder, unspecifiedOther jail (current) drug therapy 1 Dorothy Gentile. [address] [facility] [address], [place], [id number] , [place]. tel: [phone] Referring Provider: Denton Wang [facility] [address], [place], [address]. tel:[phone] OFFICE/OUTPA TIENT VISIT, [facility], [address], [place], [id number] , [place] tel: [phone] [facility] Facial pain (chief complaint) Chronic migraine without aura, intractable, without status migrainosusTrigemi nal neuralgiaTMJ disorderLong term (current) use of opiate analgesicTrochante stephanie bursitis, left hipChronic pain syndromeFacial pain NOS 1 Dorothy Gentile. [address] [facility] [address], [place], [id number] , [place]. tel: [phone] Referring Provider: Denton Wang [facility] [address], [place], [address]. tel:[phone] [facility], [address], [place], [id number] , [place] tel: [phone] [facility] Trochanteric bursitis, left hip 1 [facility], [address], [address], [place]. tel: [phone] Referring Provider: Denton Wang [facility] [address], [place], [address]. tel:[phone] OFFICE/OUTPA TIENT VISIT, [facility], [address] [place] [address], [id number] , [place] tel: [phone] [facility] Facial pain (chief complaint) Chronic migraine without aura, intractable, without status migrainosusTrigemi nal neuralgiaTMJ disorderLong term (current) use of opiate analgesicTrochante stephanie bursitis, left hipChronic pain syndromeFacial pain NOS 1 Dorothy Gentile. [address] [facility] [address], [place], [id number] , [place]. tel: [phone] Referring Provider: Denton Wang [facility] [address], [place], [address]. tel:[phone] OFFICE/OUTPA TIENT VISIT, [facility], [address], [place], [id number] , [place] tel: [phone] [facility] Facial pain (chief complaint) left hip pain (chief complaint) Chronic migraine without aura, intractable, without status migrainosusTrigemi nal neuralgiaTMJ disorderLong term (current) use of opiate analgesicTrochante stephanie bursitis, left hipChronic pain syndromeFacial pain NOS Arnaud-0 1 Dorothy Gentile. [address], [place], [id number] , [place]. tel:[phone] Referring Provider: [facility] [address], [place], [address]. tel:[phone] [facility], [address] [place] [address], [id number] , [place] tel:[phone] [facility] [place] No Information 1 Dorothy Gentile. [address], [place], [id number] , [place]. tel:[phone] Referring Provider: Omar Ferrera, [address] [place], [address]. tel:[phone] OFFICE/OUTPA TIENT VISIT, [facility], [address], [place], [id number] , [place] tel:[phone] [facility] facial pain (chief complaint) Chronic pain syndromeEncounter for screening for other disorderFacial pain NOSTrigeminal neuralgiaTMJ disorderLong term (current) use of opiate analgesicEncounter for therapeutic drug level monitoringTrochant gely bursitis, left hipChronic migraine without aura, intractable, without status migrainosus 1 Dorothy Gentile. [address], [place], [id number] , [place]. tel:[phone] Referring Provider: [facility] [address], [place], [address]. tel:[phone] Family History Family Member Type Diagnosis Age At Onset Problem Family history of chronic pa in Payers Payer name Insurance type Covered green party ID Dee lovelace(s) [facility] [id number] Social History Type Description Quantity Date Captured Comments Alcohol Use Details Unknown Caffeine Use Details Unknown Tobacco Use Status No Information Smoking Status No Information Sex Female Chief Complaint And Reason For Visit No Information Reason For Referral Reason For Referral No Information Plan Of Treatment Date Type Action Status Goal Height. Due on d ue Goal Review Allergy List. Due on due Goal Hepatitis C screening. Due o n due Goal HPV. Due on due Goal Lipid panel. Due on due Goal Unhealthy drug use screening . Due on due Goal Tobacco Use. Due on due Goal Medication Reconciliation. D ue on due Goal PHQ-9. Due on du e Goal Weight. Due on d ue Goal Update Social History. Due o n due Goal DISTRICT LEADER Scanned. Due on due Goal OARS. Due on due Goal Order Annual PT. Due on due Goal UDT. Due on due Goal NEEDLE GRADER Paperwork. Due on due Goal ALT (SGPT). Due on due Goal AST (SGOT). Due on due Goal Creatinine. Due on due Goal AST (SGOT). Due on due Goal Creatinine. Due on due Goal DISTRICT LEADER Scanned. Due on due Goal UDT. Due on due Goal NEEDLE GRADER Paperwork. Due on due Goal OARS. Due [...] due Goal Creatinine. Due on due Goal DISTRICT LEADER Scanned. Due on due Goal UDT. Due on due Goal NEEDLE GRADER Paperwork. Due on due Goal OARS. Due on due Goal ALT (SGPT). Due on due Goal Order Annual PT. Due on due Goal Medication Reconciliation. D ue on due Goal Review Allergy List. Due on due Goal Tobacco Use. Due on due Goal AST (SGOT). Due on due Goal Creatinine. Due on due Goal DISTRICT LEADER Scanned. Due on due Goal UDT. Due on due Goal NEEDLE GRADER Paperwork. Due on due Goal OARS. Due [...] Goal Weight. Due on d ue Goal Tobacco Use. Due on due Goal PHQ-9. Due on du e Goal Height. Due on d ue Goal Update Social History. Due o n due Goal Weight. Due on d ue Goal ALT (SGPT). Due on due Goal AST (SGOT). Due on due Goal Creatinine. Due on due Goal DISTRICT LEADER Scanned. Due on due Goal UDT. Due on due Goal Order Annual PT. Due on due Goal Medication Reconciliation. D ue on due Goal Review Allergy List. Due on due Goal NEEDLE GRADER Paperwork. Due on due Goal OARS. Due on due Goal Weight. Due on d ue Goal AST (SGOT). Due on due Goal Creatinine. Due on due Goal DISTRICT LEADER Scanned. Due on due Goal UDT. Due on due Goal NEEDLE GRADER Paperwork. Due on due Goal OARS. Due on due Goal ALT (SGPT). Due on due Goal Order Annual PT. Due on due Goal Medication Reconciliation. D ue on due Goal Review Allergy List. Due on due Goal Tobacco Use. Due on due Goal PHQ-9. Due on du e Goal Height. Due on d ue Goal Update Social History. Due o n due Goal Order Annual PT. Due on due Goal Medication Reconciliation. D ue on due Goal Review Allergy List. Due on due Goal Tobacco Use. Due on due Goal PHQ-9. Due on du e Goal Height. Due on d ue Goal Update Social History. Due o n due Goal Weight. Due on d ue Goal DISTRICT LEADER Scanned. Due on due Goal UDT. Due on due Goal NEEDLE GRADER Paperwork. Due on due Goal OARS. Due on due Goal ALT (SGPT). Due on due Goal AST (SGOT). Due on due Goal Creatinine. Due on due Goal Order Annual PT. [...] due Goal Creatinine. Due on due Goal DISTRICT LEADER Scanned. Due on due Goal UDT. Due on due Goal NEEDLE GRADER Paperwork. Due on due Goal OARS. Due on due Goal ALT (SGPT). Due on due Goal ALT (SGPT). Due [...] due Goal Creatinine. Due on due Goal DISTRICT LEADER Scanned. Due on due Goal UDT. Due on due Goal NEEDLE GRADER Paperwork. Due on due Goal OARS. Due on due Goal Creatinine. Due on due Goal DISTRICT LEADER Scanned. Due on due Goal UDT. Due on due Goal NEEDLE GRADER Paperwork. Due on due Goal OARS. Due [...] Goal ALT (SGPT). Due on due Goal OARS. Due on due Goal NEEDLE GRADER Paperwork. Due on due Goal UDT. Due on due Goal DISTRICT LEADER Scanned. Due on due Goal Creatinine. Due on due Goal AST (SGOT). Due on due Goal Review Allergy List. Due on due Goal Tobacco Use. Due on due Goal PHQ-9. Due on du e Goal Height. Due on d ue Goal Update Social History. Due o n due Goal Order Annual PT. Due on due Goal Weight. Due on d ue Goal Medication Reconciliation. D ue on due Goal Creatinine. Due on due Goal Tobacco Use. Due on due Goal PHQ-9. Due on du e Goal Height. Due on d ue Goal Update Social History. Due o n due Goal DISTRICT LEADER Scanned. Due on due Goal UDT. Due on due Goal NEEDLE GRADER Paperwork. Due on due Goal OARS. Due on due Goal ALT (SGPT). Due on due Goal Order Annual PT. Due on due Goal Weight. Due on d ue Goal AST (SGOT). Due on due Goal Medication Reconciliation. D ue on due Goal Review Allergy List. Due on due Goal PHQ-9. Due on du e Goal Height. Due on d ue Goal Update Social History. Due o n due Goal AST (SGOT). Due on due Goal Creatinine. Due on due Goal DISTRICT LEADER Scanned. Due on due Goal UDT. Due on due Goal NEEDLE GRADER Paperwork. Due on due Goal OARS. Due on due Goal ALT (SGPT). Due on due Goal Order Annual PT. Due on due Goal Weight. Due on d ue Goal Medication Reconciliation. D ue on due Goal Review Allergy List. Due on due Goal Tobacco Use. Due on due Goal NEEDLE GRADER Paperwork. Due on due Goal OARS. Due [...] due Goal Creatinine. Due on due Goal DISTRICT LEADER Scanned. Due on due Goal UDT. Due on due Goal Order Annual PT. Due on due Goal Weight. Due on d ue Goal Medication Reconciliation. D ue on due Goal Review Allergy List. Due on due Goal Tobacco Use. Due on due Goal PHQ-9. Due on du e Goal Height. Due on d ue Goal Update Social History. Due o n due Goal ALT (SGPT). Due on due Goal AST (SGOT). Due on due Goal Creatinine. Due on due Goal DISTRICT LEADER Scanned. Due on due Goal UDT. Due on due Goal NEEDLE GRADER Paperwork. Due on due Goal OARS. Due on due Goal AST (SGOT). Due on due Goal Creatinine. Due on due Goal NEEDLE GRADER Paperwork. Due on due Goal OARS. Due on due Goal ALT (SGPT). Due on due Goal Order Annual PT. Due on due Goal DISTRICT LEADER Scanned. Due on due Goal UDT. Due on due Goal Weight. Due on d ue Goal Medication Reconciliation. D ue on due Goal Review Allergy List. Due on due Goal Tobacco Use. Due on due Goal PHQ-9. Due on du e Goal Height. Due on d ue Goal Update Social History. Due o n due History Of Present Illness Encounter Date Complaint History Of Prese nt Illness Facial Pain The problem has not changed. The frequency of pain is persistent. The client reports the pain level is 8/10. Location of pain is left jaw. The client describes the pain as aching. Symptoms are triggered by eating. Pertinent negatives include fever, nausea and vomiting. Comments: Mrs. Jj velásquez is a 45 y/o woman here for follow up and medication refill in the setting of chronic facial pain. She has a hx of TMJ disorder and trigeminal neuralgia. Pain is stable this month, with ongoing fatigue. Notes that stress worsens her pain. Inquires about repeating left GTB injxn since hip is starting to hurt again.She was referred to [facility] but did not want to go as [...] and progressively worsening. Blood work done at [facility] yesterday shows everything is fine per her report after going to the ER. The assumption from other providers is that her pain is directly causing the fatigue. She also notes some GI upset recently and worsening headaches.Current medication regimen provides moderate pain relief and increased functionality. Denies side effects from current regimen. No other concerns. Facial pain (comments) Leilani [...] SEs. No other concerns. Facial pain The severity of the problem is moderate. The problem has not changed. The frequency of pain is persistent. Facial pain The problem is s evere. [...] states she takes Lasix for this. At [facility] she stated she has not received [...] for trigeminal neuralgia was not recommended by [facility].She states that she would only be comfortable seeing an -[place] therapist.She is scheduled for a Left GT [...] for trigeminal neuralgia was not recommended by [facility]. Current pain flare starts at left TMJ and radiates down her mandible and up to her forehead. Also reports her left GT bursa pain is starting to return after several months of benefit from our last injection.She just started 200 mg dose of tramadol ER yesterday, but says it is not helping enough. Facial pain (comments) Leilani ferris s a [...] reports she has a f/u appt with [facility] on 03/17/21 for potential injections.Reports current medication [...] pain. No other concerns today. Facial pain The problem has intermittent. The frequency of pain is persistent. The patient describes the pain as aching, sharp and tingling. Symptoms are not triggered by bending, lying down, movement, prolonged positioning or twisting. Pertinent negatives include fever, nausea and vomiting. Additional information: relieved by changing positions, heat, massage, medications, stretching, walking. Facial pain The problem has not changed. [...] this time. She got a call from [facility] and is scheduled for trigeminal nerve block [...] pain flares/spikes.No other concerns today. Facial pain (comments) Leilani ferris s here for a follow up. Facial pain persists this month. She feels her pain is not well managed at this time. She has had frustration with the scheduling the microvascular decompression at [facility] and requests referral elsewhere. She has not [...] the pain. She is following up at [facility] for ultrasound concerning leg swelling today. left hip pain Duration chronic . Location of pain is left. Pertinent negatives include fever. Facial pain The problem has fluctuating. The [...] is scheduled for a surgical consult at [facility] for possible microscopic decompression surgery on 12/05/20.[facility] notes reviewed - pt started on Carbamezapine ER with improvement in pain. There was discussion of Rhizotomy of the trigeminal nerve. 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 Vasquez did not recommend surgical intervention.[facility] reviewed - TMJ dysfunction [facility], self care and PT recommended. 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 facial pain The frequency of pain is persistent. The patient reports the pain level is 10/10. Location of pain is bilateral lower face, bilateral jaw, left hip and left leg. The patient describes the pain as aching, burning, stabbing and numbness. Symptoms are triggered by bending, changing positions, supine, movement, sitting, stairs, standing and twisting. Pertinent negatives include fever. facial pain (comments) Leilani ferris s here for an initial consult and presents with facial pain, initial onset several years ago. 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 Her neurologist at [facility] confirmed and dx'ed the tumor through imaging. Her pain is triggered by light touch including wind and brushing her teeth. She has polyarthralgia with negative rheumatological work up. Per records, there is no clear dx for her facial pain. Currently working with dentist for TMJ s/s , she has been PT multiple times without improvement. She has seen a neurologist at [facility] without any better explanation of her facial pain. The neurologist ordered fascial PT at [facility] (starts 12/01/20) and referred her to [facility] for surgical consult. She has been in and out of the ER due to the uncontrolled pain.She reports secondary pain in her left hip which affects her gait. The pain is located on the outside and radiates towards the inside. She has tried PT at [facility] in [place] for the hip with no benefit. She is scheduled for an ultrasound of the hip edema next week.Referred by PCP.Treatment Tried:tegretolCarbamazepinegabapentinCymbalta percocet PRN - helpful but causes fatigue.tramadol 50mg BID - helpful but causes fatigue.[facility]Pt goal: [facility] to take over pain management. Functional Status Date Functional Assessmen t No Information Instructions Date Instruction Additional Infor mation No Information Assessments Type Assessment Date No Information Patient Care Teams Name Effective Dates (start - stop) Status Members No Information
--- OUTSIDE RECORDS SUMMARY | 2025-04-13 06:14 | XMS_ITS | Clinical Summary ---
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 Not on file Not [...] 2021 10/26/2005 Mammogram for age 45-75 2021 BMI (ht and wt on same day) for age 18+ 09/16/2024 09/17/2023, 07/15/2022, 10/04/2020, Additional history exists COVID-19 vaccine series ( season) 2025 08/03/2021, 10/11/2020, 09/13/2020 Influenza Vaccine (#1) 2025 4, 05/25/2014, 03/21/2010, Additional history exists Tetanus booster 07/15/2032 07/15/2022, 01/23, 12/27/2012 RSV vaccine for adults or (1 - 1-dose 75+ series) 10/09/2051 Pneumococcal series for age 6-49 Aged Out No longer eligible based on patient's age to complete this topic Procedures Procedure Name Priority Date/Time Associated Diagnosis Comments LIPID PANEL Timed 10/26/2005 11:36 AM CDT from Last 3 Months or Most Recently Relevant to Health Maintenance Results * LIPID PANEL (10/26/2005 11:36 AM CDT) CHOLESTEROL,TOTAL 157 110 - 199 mg/dL [facility] TRIGLYCERIDES 129 40 - 149 mg/dL [facility] HDL CHOLESTEROL 42 >40 mg/dL [facility] CHOL/HDL RATIO 3.74 <4.51 [facility] LDL CHOLESTEROL 89 <131 mg/dL [facility] PATIENT STATUS Non-Fasti ng [facility] 10/26/2005 11:3 6 AM CDT 10/26/2005 11:36 AM CDT us Andrea Alvarenga MD CHEMISTRY Final Res ult [facility] [place]NAL ZIP [address] [address] from Last 3 Months or Most Recently Relevant to Health Maintenance Insurance [facility] [employer] Advance Directives * Full Code (Latest Code Status on File) Date Activated Date Inactivated Comments 07/03/2006 10:54 AM 07/07/2006 5:54 PM * Full Code Date Activated Date Inactivated Comments 07/02/2006 11:24 PM 07/03/2006 10:54 AM * Full Code Date Activated Date Inactivated Comments 06/29/2006 2:38 AM 06/29/2006 9:55 PM Care Teams Roaster Supervisor Relationship Specialty Start Date End Date Denton Wang MD [address], [place] [address] PCP - General Family Practice 09/20/20
--- OUTSIDE RECORDS SUMMARY | 2025-04-13 06:14 | XMS_ITS | Clinical Summary ---
Author Organization [facility] Address [address] [place] [address] Care Team Providers Care Mine Expert Name Role Phone No Ref-Primary, Physician Primary Care Provider Meghna Potter MD Unavailable Omar Spicer MD Unavailable [phone] Roger Moseley DDS Unavailable [phone] Allergies Active Allergy Reactions Criticality Noted Date Comments Ibuprofen Other (See Comments),GI Disturbance Low 05/11/2013 Not true allergy - was told to avoid NSAIDs due to gastric bypass Told not to take after gastric bypass Had gastric bypass surgery and cannot take Ibuprofen No Known Drug Allergy 09/02/2009 No Clinical Screening - Other Allergy Other (See Comments) 10/04/2020 Seasonal allergies Seasonal [...] on file 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 Gender Identity Not on file Sexual Orientation [...] Treatment Not on file Insurance [place] * Guarantor: Leilani Lundy Account Type Relation to Patient Date of Phone Billing Address Medication Therapy Self [address] [id number] [employer] [place] Care Teams Mine Expert Relationship Specialty Start Date End Date No Ref-Primary, Physician PCP - General 05/05/18 [place] [address] [place] [address] Family Practice 05/05/18 Omar Spicer MD [address] [facility] [id number] [place] [address] Neurological Surgery 11/18/20 Roger Moseley DDS [facility] [address] [facility] [address] [place] [address] Referring Physician Dentist 11/18/20
--- OUTSIDE RECORDS SUMMARY | 2025-04-13 06:14 | XMS_ITS | Encounter Summary ---
Author Organization [place] Address [address] [facility] [place] [address] Care Team Providers Care Ham Stripper Name Role Phone Meghna Potter MD Primary Care P rovider No Ref-Primary, Physician Primary Care Provider Meghna Potter MD Unavailable Omar Spicer MD Unavailable [phone] Roger Moseley DDS Unavailable [phone] Omar Spicer MD Unavailable [phone] Encounter Details Date Type Department Care Team (Late st Contact Info) Description 08/31/2010 MyC Medical Advice Initial Department [facility] Social History Tobacco Use Types Packs/Day Years Used Date Smoking Tobacco: Never Comments:no second hand smok e Alcohol Use Standard Drinks/Week Comments Yes 0 (1 standard drink = 0.6 oz pur e alcohol) socialy Comments No Sex and Gender Information Value Date Recorded Sex Assigned at Not on file 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 Gender Identity Not on file Sexual Orientation Not on file 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 on file documented as of this encounter Plan of Treatment Not on file documented as of this encounter Visit Diagnoses Not on filedocumented in this encounter Care Teams Ham Stripper Relationship Specialty [place] [address] [phone] PCP - General Family Practice 08/26/09 05/04/18 No Ref-Primary, Physician PCP - General 05/05/18 [place] [address] [address] [phone] Family Practice 05/05/18 Omar Spicer MD [address] [address] Neurological Surgery 11/18/20 Roger Moseley DDS [facility] [address] [facility] [address] [place] [address] Referring Physician Dentist 11/18/20 Omar Spicer MD [address] [address] Assigned Neuroscience Provider 12/18/20 11/23/22 documented as of this encounter
[2025-04-13 06:32] VITALS: BP 88/58; PULSE 64; RESP 16; TEMP 36.4; O2SAT 99
[2025-04-13 07:27] LABS: PCR FLU A Negative PCR FLU A (Negative); PCR FLU B Negative PCR FLU B (Negative); PCR RSV Negative PCR RSV (Negative); SARS PCR* Negative SARS-CoV-2 (Negative)
--- NOTE | 2025-04-13 08:33 | ED_ITS ---
HPI - General Adult General Date Seen: 04/13/25 Chief complaint: Cough Stated complaint: cough Time Seen by Provider: 04/13/25 07:49 History of Present Illness HPI narrative: 49-year-old female who has a history of asthma, anxiety, allergic rhinitis, also distant history of COVID, presenting to the ER today with cough and chest tightness. She has a history of asthma but it sounds like it is very infrequent and she does not half to manage it regularly. She is a nonsmoker. She has been sick with a nonproductive cough this started last week but has been getting worse over the past few days. In particular she notes a lot of trouble with coughing that keeps her up at night. She had a very bad night last night. Along with the cough she is now developing a little bit of chest tightness and a little bit of discomfort when she breathes in her left chest. Mild sore throat. Mild stuffy nose. She does note that she does have environmental allergies that are triggered when the weather changes, as happened a few days ago. No headache. No earache. No trouble swallowing. No vomiting. She is feeling weak and tired and run down. She is not having any abdominal pain. No anterior chest pain. No swelling in her legs. No rashes. Related Data Previous Rx's ?Medication ?Instructions ?Recorded duloxetine 30 mg capsule,delayed 30 mg PO BID #180 cap s 06/09/24 release nortriptyline 50 mg capsule 50 mg PO QHS #90 caps 05/24 01/14 topiramate 25 mg tablet (Topamax) 25 mg PO QHS #30 tab s 06/09/24 cholecalciferol (vitamin D3) 1,250 1,250 mcg PO QWEEK #12 caps 06/10/24 mcg (50,000 unit) capsule carbamazepine 200 mg 200 mg PO BID PRN trigeminal 08/05/24 capsule,extended release [id number] neuralgia #30 caps amoxicillin 500 mg tablet 1,000 mg (2 x 500 mg) PO TID #30 04/13/25 tabs benzonatate 100 mg capsule 100 mg PO TID PRN cough #14 caps 04/13/25 Allergies Allergy/AdvReac Type Severity Reaction Status Date / Time ibuprofen Allergy Mild unable to Verified 04/13/25 06:38 tolerate due to gastric bypass hx PFSH PFSH Medical History Grief ?F43.21 - Adjustment disorder with depressed mood (ICD-10) History of temporomandibular joint disorder ?Z87.39 - Personal history of other diseases of the musculoskeletal system and connective tissue (ICD-10) History of anemia ?Z86.2 - Personal history of diseases of the blood and blood-forming organs and certain disorders involving the immune mechanism (ICD-10) Surgical History History of hysterectomy ?Z90.710 - Acquired absence of both cervix and uterus (ICD-10) History of gastric bypass ?Z98.84 - Bariatric surgery status (ICD-10) History of section ?Z98.891 - History of uterine scar from previous surgery (ICD-10) Family History Father Diabetes Leukemia Family/Other Heart disease Other Kidney disease Stroke Social History Narrative: nonsmoker What is your current living situation?: I presently have a place to live Problems where you live: no known problems In the past 12 months, utilities in danger of being shut off: no In past 12 months, lack of transportation kept you from medical appts, meetings, work, or getting things needed for daily living: no In the past 12 mos, have been you worried that your food would run out before you had money to buy more?: never true In the past 12 mos, the food you bought just didn't last and you didn't have money to buy more?: never true Smoking Status: Never smoker Do you use any of these nicotine containing products: None Second hand tobacco smoke exposure: No How often do you have a drink containing alcohol: monthly or less AUDIT-C Alcohol total score: 1 Non-prescribed substance use: denies use How often does anyone, including family, friends and others, physically hurt you : never How often does anyone, including family, friends and others, insult or talk down to you: never How often does anyone, including family, friends and others, threaten you with harm: never How often does anyone, including family, friends and others, scream or curse at you: never service: No Exam Narrative: Exam Narrative: Constitutional: Appears well-developed and well-nourished. Alert. Conversant. Non toxic. HENT: Head: Atraumatic. Nose: Nose normal. Right ear: Mastoid, canal, pinna, TM are normal. Left ear: Pinna, mastoid, canal, TM are normal. Mouth/Throat: Oral mucosa is clear and moist. no trismus. Pharynx minimally erythematous. Tonsils symmetric. No tonsillar enlargement, erythema, or exudate. Eyes: Conjunctivae normal. EOM normal. Pupils equal, round, and reactive to light. No scleral icterus. Neck: Normal range of motion. Neck supple. No tracheal deviation present. No stridor Cardiovascular: Normal rate, regular rhythm. No gallop. No friction rub. No murmur heard. Symmetric radial artery pulses Pulmonary/Chest: Effort normal. No stridor. No respiratory distress. No wheezes. Scares rales and rhonchi most notable in the left base but also little bit on the right. . No tenderness. Abdominal: Soft. No distension. No mass. No tenderness. No rebound. No guarding. Musculoskeletal: RUE: Normal range of motion. No tenderness. No deformity LUE: Normal range of motion. No tenderness. No deformity RLE: Normal range of motion. No edema. No tenderness. No deformity LLE: Normal range of motion. No edema. No tenderness. No deformity Neurological: Alert and oriented to person, place, and time. Normal strength. CN II-VII intact. No sensory deficit. GCS eye subscore is 4. GCS verbal subscore is 5. GCS motor subscore is 6. Normal coordination Skin: Skin is warm and dry. No rash noted. No pallor. Normal capillary refill. Psychiatric: Normal mood. Normal affect. Const: Vital Signs, click to edit/add: Vital Signs - 24 hr 04/13/25 06:32 04/13/25 08:59 Temperature 97.6 F Pulse Rate [Pulse Oximeter] 64 Respiratory Rate 16 Blood Pressure [Ri ght Upper Arm] 88/58 L 101/67 Pulse Oximetry 99 Oxygen Delivery Me thod Room Air Course Vital Signs Vital signs: Initial Vital Signs Temperature 97.6 F 04/13/25 06:32 Temperature Source Temporal Artery Scan 04/13/25 06:32 Pulse Rate 64 04/13/25 06:32 Pulse Rhythm Regular 04/13/25 06:32 Respiratory Rate 16 04/13/25 06:32 Blood Pressure 88/58 L 04/13/25 06:32 Blood Pressure Mean 68 L 04/13/25 06:32 Blood Pressure Position Sitting 04/13/25 06:32 Pulse Oximetry 99 04/13/25 06:32 Oxygen Delivery Method Room Air 04/13/25 06:32 Vital Signs Temperature 97.6 F 04/13/25 06:32 Pulse Rate 64 04/13/25 06:32 Respiratory Rate 16 04/13/25 06:32 Blood Pressure 88/58 L 04/13/25 06:32 Pulse Oximetry 99 04/13/25 06:32 Oxygen Delivery Method Room Air 04/13/25 06:32 Temperature 97.6 F 04/13/25 06:32 Pulse Rate 64 04/13/25 06:32 Respiratory Rate 16 04/13/25 06:32 Blood Pressure 101/67 04/13/25 08:59 Pulse Oximetry 99 04/13/25 06:32 Oxygen Delivery Method Room Air 04/13/25 06:32 Medical Decision Making MDM Narrative Medical decision making narrative: This patient presents for evaluation of cough and chest tightness. Cough began about over a week ago and been getting worse for the past few days now with chest tightness and difficulty sleeping for past couple of days. Initial symptoms would have been consistent with an upper respiratory tract infection. Viral testing negative for COVID/influenza/RSV. There is no signs at this point of serious bacterial infection such as OM, RPA, epiglottitis, [employer], strep pharyngitis, sinusitis, meningitis, bacteremia. However with worsening over the past couple of days consider possible bacterial super infection with pn eumonia or flare of asthma. She is not having any wheezing or bronchospasm and is able to breathe deeply clearly here in the ER. I do not think this is asthma that will require bronchodilators or steroids. On my lung exam she does have some rales in the bases, in particular in the left base which I think is concerning for a community-acquired pneumonia. Discussed this with the patient. We agreed to treat empirically with antibiotics. At this point with high clinical suspicion I think it is reasonable to hold off on chest x-ray . There are no gastrointestinal symptoms at this point and no signs of dehydration. Close followup with primary care physician is indicated. Return to ED for fever > 103, protracted vomiting, confusion, or other worsening. I do know on her triage vital signs her oxygen, pulse, temperature, were all normal but blood pressure was borderline low. When I reviewed the patient's old records it looks like she tends to run in the low normal range for her blood pressure. Subsequent blood pressure readings here in the ER were normotensive. At this point I do not think the patient has septic shock. I think this was probably a single spurious low blood pressure reading. At this point I do not think she needs laboratory workup, IV antibiotics, or further management. Prescription for amoxicillin 1000 mg t.i.d. for 5 days. Abelardo [email or web address]. Lab Data Labs: Lab Results 04/13/25 Range/Units 06:45 SARS-CoV-2 (PCR) Negative SARS-CoV-2 (Negative) Influenza Type A (PCR) Negative PCR FLU A (Negative) Influenza Type B (PCR) Negative PCR FLU B (Negative) RSV (PCR) Negative PCR RSV (Negative) Discharge Plan Discharge Clinical Impression: Pneumonia Patient Disposition: Home, Self-Care Condition: Stable Instructions: Community Acquired Pneumonia (DC) Additional Instructions: As we discussed, please come back to the ER or see your doctor immediately if you have worsening trouble breathing, weakness or fainting, worsening chest pain, high fever, or any concerns. Please start on the antibiotics today to treat your pneumonia. It may take around 48 hours before you start to feel a lot better. If you are not dramatically improved by , please recheck with your doctor or come back to the ER. In addition to taking the antibiotics, you can use the cough medicine as needed help with her cough. Be sure to drink plenty of fluids, eat healthy foods. Try to maintain your nutrition, energy, and stay hydrated. Prescriptions: New benzonatate 100 mg capsule 100 mg PO TID PRN (Reason: cough) Qty: 14 0RF amoxicillin 500 mg tablet 1,000 mg PO TID Qty: 30 0RF No Action duloxetine 30 mg capsule,delayed release(DR/EC) 30 mg PO BID Qty: 180 3RF nortriptyline 50 mg capsule 50 mg PO QHS Qty: 90 3RF topiramate [Topamax] 25 mg tablet 25 mg PO QHS Qty: 30 12RF carbamazepine 200 mg capsule, ER multiphase 12 hr 200 mg PO BID PRN (Reason: trigeminal neuralgia) Qty: 30 0RF cholecalciferol (vitamin D3) 1,250 mcg (50,000 unit) capsule 1,250 mcg PO QWEEK Qty: 12 0RF Follow Up/Referrals: Koki Fagan MD [Primary Care Provider, Family Practice] Stand Alone Forms: Work/School Release, [facility] Info Instructions
[2025-04-13 08:59] VITALS: BP 101/67
== END 2025-04-13 09:27 | disposition home or self-care (01) ==
PROVIDERS: Emergency Provider Emergency Medicine; PCP Family Medicine
DX: J18.9 Pneumonia, unspecified organism (principal)
CPT/HCPCS: 87631; 99282; 99283